=== PATIENT | male | born 1990 | race Caucasian/White ===

== ENCOUNTER 2020-08-07 09:27 | Observation (INO) | payer MEDICAID, SELFPAY ==
[2020-08-07] VITALS (19 sets, daily range): BP systolic 135–158; BP diastolic 70–108; PULSE 70–106; RESP 13–22; TEMP 36.7–36.8; O2SAT 95–98
--- NOTE | 2020-08-07 | DI.US_ITS ---
EXAM: US CAROTID CLINICAL HISTORY: expressive aphasia, ?CVA TECHNIQUE: Ultrasound performed using standard protocol. COMPARISON: No exams were available for comparison FINDINGS: Bilateral duplex carotid ultrasound was performed. There is bilateral antegrade vertebral flow. The re is no visible atheromatous plaque in the carotid circulation. Flow velocities in the common inter nal and external carotid arteries are within normal limits. IMPRESSION: No evidence of a hemodynamically significant carotid stenosis. DATA REPOSITORY:
--- NOTE | 2020-08-07 09:30 | DI.CT_ITS ---
EXAM: CT HEAD WO CLINICAL HISTORY: AMS, non verbal. TECHNIQUE: Imaging Protocol: Axial computed tomography images with coronal and sagittal reformatted images were created and reviewed COMPARISON: No exams were available for comparison FINDINGS: The examination is limited due to patient motion artifact. Ventricles and Extra axial spaces: Normal in size and morphology for the patient's age. Hemorrhage: None. Cerebral parenchyma: Normal. Midline shift: None. Brainstem/Cerebellum: Normal. Calvarium: Normal. Visualized Paranasal sinuses/Mastoids: Clear. Soft Tissues: Unremarkable. IMPRESSION: No acute intracranial process. Results of this exam have been verbally communicated with provider. RADIATION DOSE DELIVERED: 756.54mGy.cm Total DLP DATA REPOSITORY: All CT scans at this facility are submitted to the National Radiology Data Registry (NRDR) Dose Index Registry (DIR) with the [employer] (A[employer]). RADIATION OPTIMIZATION: All CT scans at this facility use at least one of these dose optimization te chniques: automated exposure control; mA and/or kV adjustment per patient size (includes targeted exa ms where dose is matched to clinical indication); or iterative reconstruction.
--- NOTE | 2020-08-07 09:45 | ED.GENADUL_ITS ---
Discharge Plan Disposition Patient Disposition: [facility] INPATIENT Condition: Stable Discharge Details Clinical Impression: Acute alteration in mental status Primary Care Provider: Unknown,Unknown ED Provider: Elise Majano Home Meds and New Rx's Prescriptions: No Action No Known Home Meds RF: 0 Medical Decision Making 30-year-old male presents to the ED via EMS and police with altered mental status. Call came in as a possible seizure, when EMS arrived on scene patient was not there. They found him at a family member's house he was standing or smoking a cigarette nonverbal. He does not yes or no to some questions, he she did endorse to EMS that he may have smoked some crack cocaine and/or marijuana. No significant signs of trauma, he does have some blood noted in his left nare, dry mucous membranes, denies any chest or abdominal pain. No tenderness with palpation. Lungs are clear bilaterally to auscultation. He does appear anxious, under the influence, pupils are 5 mm sluggish bilaterally, he also kind of freezes mid motion as in a catatonic state. 1004: Call made to Daniela (Pt's Girlfriend) No answer, left voicemail. At this time work-up ordered including CBC, CMP, Tylenol, salicylate level, ethanol alcohol level, urinalysis and urine drug screen, CT head. 1 L normal saline bolus and oral fluids given. Differential diagnosis includes but not limited to head trauma, CVA, drug abuse, behavioral or anxiety reaction. 1013: Spoke with Patient's girlfriend Daniela, she states last time she talked to him was last night, he was supposed to get her kids this am. At 0630 this am she noticed the car missing and she assumed he went to get kids. She states that he smokes Marijuana daily. She also states that over the last year he will pass out and wake up and state that he's fine. She reports last episode she witnessed was approximately 6 months ago after intercourse she states that he began overheating feeling woozy, he then laid down on the ground and passed out for approximately 30 seconds. She states that he then just woke up right away and said that he was fine. 1042: Patient sitting up on side of bed with senior staff specialized employment, he is refusing of his pants taken off to the urine sample. He is still nonverbal. CT head is within normal limits. 1057: Per senior staff specialized employment patient did speak through the closed door when asked if he needed help, he stated through the closed door no I am all set and when asked also through the closed door if he needed help with the urinal he said no, At this time initial work-up is largely unremarkable negative for ethyl alcohol, Tylenol, salicylate, TSH is within normal limits, sodium potassium is also within normal limit white blood cell count is 11.38. At this time we do not have a urinalysis as of yet or urine drug screen. 1131: Neurologist Dr. Landry Paged, 1151: Patient is now able to speak in 1 or 2 words, he does stare off into space impression anxiety or mental health. He did tell the senior staff specialized employment that he is having a hard time forming the words. [id number] normal bilateral upper extremities. He is moving all 4 extremities, strength is 5+ all 4 extremities. He is unable to smile, can puff out his cheeks, can raise his eyebrows. Continues to be aphasic. Urine was obtained and is pending at this time. 1155: Urinalysis shows no evidence of UTI, no nitrites no leukocytes, hospitalist paged for possible admission.She agrees to come and evaluate patient. 1208: Spoke with Samaira Gonzalez discussed patient case and details she does recommend admission and possible MRI of the brain and EEG if patient does not improve his mental status. At this time she does also agree that this appears to be more drug related and/or psych versus true aphasia. 1232: Urine drug screen positive for cocaine and THC. 1243: Dr. Scott here for patient evaluation, she agrees to accept patient for admission to R/O TIA/CVA and altered mental status. HPI General Mode of arrival: EMS . Date/Time Provider Initiated Documentation: 08/07/20 09:33 . Limitations to Documentation: altered mental status . Information obtained by: patient, police and EMS . HPI Narrative: 30-year-old male presents to the ED via EMS and police with altered mental status. Call came in as a possible seizure, when EMS arrived on scene patient was not there. They found him at a family member's house he was standing or smoking a cigarette nonverbal. He does not yes or no to some questions, he she did endorse to EMS that he may have smoked some crack cocaine and/or marijuana. No significant signs of trauma, he does have some blood noted in his left nare, dry mucous membranes, denies any chest or abdominal pain. No tenderness with palpation. Lungs are clear bilaterally to auscultation. He does appear anxious, under the influence, pupils are 5 mm sluggish bilaterally, he also kind of freezes mid motion as in a catatonic state. Related Data Home Medications Medication Instructions Recorded Confirmed Unknown [No Known Home Meds] 08/07/20 08/07/20 Allergies Allergy/AdvReac Type Severity Reaction Status Date / Time Penicillins AdvReac Unknown unknown Unverified 08/07/20 11:37 General Stated Complaint: AMS/LOC RON: 2 Review of Systems Narrative: Constitutional: Disheveled, nonverbal, appears catatonic, overweight body habitus, Unobtainable due to mental status [facility] Medical History (Updated 08/07/20 @ 15:04 by Danielle Scott MD) Cocaine abuse Depression Headache Tobacco abuse Surgical History (Updated 08/07/20 @ 14:41 by Danielle Scott MD) S/P tonsillectomy and adenoidectomy Family History (Updated 08/07/20 @ 14:42 by Danielle Scott MD) Mother Diabetes Father Cancer former smoker Social History (Updated 08/07/20 @ 14:42 by Danielle Scott MD) Smoking/Tobacco Use Status: Current every day Smoking risk assessment performed?: Yes Drug use: Never Additional Social history: pt currently not answering questions, per EMS pt has a history of drug use- crack/marijuana. Pt shakes head no when asked if he used drugs today but did tell EMS he used marijuana Exam Narrative Exam Narrative: Constitutional: Nonverbal, altered mental status. Appears stated age. Overweight body habitus. Appears anxious or catatonic. Head: Normocephalic, no lacerations, palpable skull fractures, abrasions. Eyes: Pupils approximately 5 to 6 mm bilaterally sluggish. Eyelids symmetrical without lesions, discharge, or swelling. ENT: Bilateral TM's WNL, External ear normal to inspection, no mastoid TTP, swelling, or erythema, nasal turbinates boggy, some blood noted left nare and some dried blood noted around the edges of the lips, no active bleeding. Normal dentition, Posterior pharynx erythemic, no exudate, dry mucous membranes Chest: Mild tachycardia at 106, normal S1, S2, distal pulses intact. Resp: Lungs clear to auscultation bilaterally, no wheezes, rales, or rhonchi. Musculoskeletal: Unable to assess gait, previous mid motion, allocation analyst 2+ bilateral upper extremities, Skin: No suspicious rashes or lesions. Capillary refill less than 2 sec. Neurologic: Cranial nerves II-XII intact. Follows commands, remains nonverbal, intact dorsal pedal flexion and extension. Moves all 4 extremities without difficulty. Hematologic/Lymphatic: No ecchymosis, no lymphadenopathy. Course Vital Signs Vital signs: Vital Signs Temperature 36.7 C 08/07/20 09:36 Pulse 106 H 08/07/20 09:36 Respiratory Rate 22 08/07/20 09:36 Blood Pressure 153/107 H 08/07/20 09:36 Pulse Oximetry 98 08/07/20 09:36 Temperature 36.7 C 08/07/20 09:36 Temperature Source Skin 08/07/20 09:36 Pulse 106 H 08/07/20 09:36 Respiratory Rate 22 08/07/20 09:36 Respiratory Effort 08/07/20 09:41 Blood Pressure 153/107 H 08/07/20 09:36 Blood Pressure Position Sitting 08/07/20 09:36 Pulse Oximetry 98 08/07/20 09:36 Oxygen Delivery Method Room Air 08/07/20 09:36 Oxygen Flow Rate 0 08/07/20 09:36
[2020-08-07] MEDS: Normal Saline 1,000 ML 1000 ML IV (10:03)
[2020-08-07 10:15] LABS: Abs Immature Grans 0.04 10^3/uL (0.0-0.06); Absolute Basophil Count 0.02 10^3/uL (0.0-0.2); Absolute Eosinophil Count 0.02 10^3/uL (0.0-0.7); Absolute Lymphocyte Count 1.65 10^3/uL (1.2-3.4); Absolute Monocyte Count 1.06 10^3/uL (0.1-0.8); Basophils % 0.2; Eosinophils % 0.2; HCT 51.5 % (40.0-50.0); HGB 17.3 g/dL (13.5-17.5); Immature Grans % 0.4; MCH 28.2 pg (27.0-33.0); MCHC 33.6 % (32.0-36.0); MCV 83.9 fL (80-95); Monocytes % 9.3; Neutrophils % 75.4; Nucleated RBC 0 %; RBC 6.14 10^6/uL (4.36-5.78); RDW 13.3 % (11.8-14.1); RDW-SD 40.9 fL; WBC 11.38 10^3/uL (4.4-10.8)
[2020-08-07 10:38] LABS: Absolute Neutrophil Count 8.58 10^3/uL (1.2-6.7); Acetaminophen < 2 ug/mL (10-30); Salicylate < 2.8 mg/dL (<2.8)
[2020-08-07 10:39] LABS: ALT 107 U/L (16-63); AST 27 U/L (15-37); Albumin 4.6 g/dL (3.4-5.0); Alkaline Phosphatase 81 U/L (46-116); Anion Gap 10.6 mmol/L (3-11); BUN 13 mg/dL (7-18); Bilirubin, Total 0.5 mg/dL (0.2-1.0); CO2 29.4 mmol/L (21.0-32.0); Calcium 9.4 mg/dL (8.5-10.1); Chloride 99 mmol/L (98-107); Glucose 120 mg/dL (74-106); Potassium 3.6 mmol/L (3.5-5.1); Sodium 139 mmol/L (136-145); TSH 2.13 uIU/mL (0.36-3.74); Total Protein 8.6 g/dL (6.4-8.2)
[2020-08-07 10:44] LABS: ETHANOL BLOOD < 3.0 mg/dL (<3)
[2020-08-07 10:46] LABS: Diff Comment Diff Reviewed; Platelet Count 391 10^3/uL (130-400)
[2020-08-07 10:47] LABS: Lymphocytes % 14.5; RBC Morphology Normal
[2020-08-07 11:51] LABS: Bilirubin Negative (Negative); Blood Negative (Negative); Clarity Clear (Clear); Glucose Negative (Negative); Ketones Negative (Negative); Leukocyte Esterase Negative (Negative); Nitrite Negative (Negative); Urobilinogen 0.2 EU/dL (Up TO 0.2)
[2020-08-07 12:10] LABS: *AMPHETAMINES SCREEN URINE Negative (Negative); *BARBITURATES SCREEN URINE Negative (Negative); *BENZODIAZEPINES SCREEN URINE Negative (Negative); Cannabinoids THC Positive (Negative); Cocaine Screen,Urine Positive (Negative); METHADONE URINE SCREEN Negative (Negative); OPIATES URINE SCREEN Negative (Negative)
[2020-08-07 12:12] LABS: Tricyclic Antidepressants Negative (Negative)
--- NOTE | 2020-08-07 13:04 | HPE_ITS ---
Date of service: 08/07/20 Time of Service: 12:45 Assessment and Plan Assessment and plan (1) Expressive aphasia: Status: Acute Assessment and plan: CVA ruled out with negative MRI. Await neuro c/s. ?Sz vs atypical migraine. ALso, r/o Lyme disease. Await covid-19 study (2) Hypertension: Status: Acute Assessment and plan: Will not treat at this time as could be related to recent cocaine use and it is not appearing malignant. Will monitor. (3) Cocaine abuse: Status: Acute Assessment and plan: Advised to quit. Monitor for sx of wd. (4) Tobacco abuse: Status: Acute Assessment and plan: Advised to quit. Provide nicotine replacement (5) DVT prophylaxis: Status: Acute Assessment and plan: Not required in an ambulatory 30 year old male (6) Discharge planning issues: Status: Acute Assessment and plan: Full code obs History of Present Illness History of Present Illness Chief Complaint: altered mental status, speech difficulty Narrative: Mr Bond is a 30 year old male with PMHx of depression (?formally diagnosed), headaches and possible near or complete syncopal episodes in the past who was brought to [facility] by ambulance today for altered mental status. Per ED provider, the patient was last seen normal last night. He had gone to forklift picker his kids from their grandmother's house this morning where he was noted to have a blank stare and not be talking but was able to drive away in his own car. 911 was called at that time. The patient was found standing on a sidewalk smoking but remained nonverbal. In the ED, he was also initially nonverbal, but following commands, but now appears to have periods of intermittent fluent speech followed by periods of expressive aphasia. The patient denies a headache. His UDS was positive for THC and cocaine. The patient admits to using cocaine 3 days ago (snorts it; denies ever using IVD). He denies numbness/tingling/weakness anywhere and is able to move all 4 extremities. He de nies contacts with known covid-19 patients or having COVID-19 symptoms himself. Family described several episodes of altered levels of consciousness in the last 2 years to the ED provider, though none fitting this description. Review of Systems Narrative: Additionally, denies h/o recent tick bites, though endorses a tick bite a long time ago. He never got checked for Lyme disease at that time and never got treatment. All systems reviewed & are unremarkable except as noted in HPI and below PFSH Medical History (Updated 08/07/20 @ 15:04 by Danielle Scott MD) Cocaine abuse Depression Headache Tobacco abuse Surgical History (Updated 08/07/20 @ 14:41 by Danielle Scott MD) S/P tonsillectomy and adenoidectomy Family History (Updated 08/07/20 @ 14:42 by Danielle Scott MD) Mother Diabetes Father Cancer former smoker Social History (Updated 08/07/20 @ 14:42 by Danielle Scott MD) Smoking/Tobacco Use Status: Current every day Smoking risk assessment performed?: Yes Drug use: Never Additional Social history: pt currently not answering questions, per EMS pt has a history of drug use- crack/marijuana. Pt shakes head no when asked if he used drugs today but did tell EMS he used marijuana Meds Home Medications and Allergies Allergies Allergy/AdvReac Type Severity Reaction Status Date / Time Penicillins AdvReac Unknown unknown Unverified 08/07/20 11:37 Home Medications Medication Instructions Recorded Confirmed Type Unknown [No Known Home Meds] 08/07/20 08/07/20 History Exam Narrative Exam Narrative: General: Pleasant obese male, awake, pupils dilated, following commands, speech alternates from fluent to word finding difficulty, but answers make sense, A&Ox3 Neurological: A&Ox3, CN II-XII intact except patient's inability to smile (he can't explain why), speech fluency changes several times throughout the exam with difficulty finding words, strength 5/5 throughout, sensation intact, DTRs 2+, plantar response flexion on left, equivocal on right. Psychiatric: affect somewhat flat, but difficult to fully assess given speech issues, appears worried Skin: Visible skin intact HEENT: Atraumatic, normocephalic, EOMI, MMM, poor dental hygiene, clear oropharynx, no submandibular or cervical lymphadenopathy, no goiter or JVD Cardiovascular: RRR, no m/r/g Lungs: CTAB Gastrointestinal: soft, nontender, nondistended Genitourinary: deferred Extremities: no edema BLE's, 2+ pedal pulses B, strength as above Results Imaging Additional studies: CT head: No acute intracranial process. MRA brain: Normal MRA examination of the [place]. MRI brain: Unremarkable MRI of the brain. Labs Result diagrams: 08/07/20 09:55 08/07/20 09:55 Labs: Laboratory Results - last 24 hr 08/07/20 08/07/20 08/07/20 09:55 09:55 09:55 WBC 11.38 H RBC 6.14 H Hgb 17.3 Hct 51.5 H MCV 83.9 MCH 28.2 MCHC 33.6 RDW 13.3 Plt Count 391 MPV 9.0 Immature Gran % 0.4 Neutrophils % 75.4 Lymphocytes % 14.5 Monocytes % 9.3 Eosinophils % 0.2 Basophils % 0.2 Nucleated RBC % 0 Absolute Neutrophils 8.58 H Absolute Lymphocytes 1.65 Absolute Monocytes 1.06 H Absolute Eosinophils 0.02 Absolute Basophils 0.02 RBC Morphology Normal Sodium 139 Potassium 3.6 Chloride 99 Carbon Dioxide 29.4 Anion Gap 10.6 BUN 13 Creatinine 1.0 Estimated GFR/1.73 m2 >= 60.00 Glucose 120 H Calcium 9.4 Total Bilirubin 0.5 AST 27 ALT 107 H Alkaline Phosphatase 81 Total Protein 8.6 H Albumin 4.6 TSH 2.13 Urine Color Urine Clarity Urine pH Ur Specific [place] Urine Protein Urine Ketones Urine Blood Urine Nitrite Urine Bilirubin Urine Urobilinogen Ur Leukocyte Esterase Urine Glucose Salicylates < 2.8 Urine Opiates Screen Urine Methadone Screen Acetaminophen < 2 Ur Barbiturates Screen Ur Tricyclics Screen Ur Amphetamines Screen U Benzodiazepines Scrn Urine Cocaine Screen Ur THC Screen Ethyl Alcohol < 3.0 08/07/20 08/07/20 11:39 11:39 WBC RBC Hgb Hct MCV MCH MCHC RDW Plt Count MPV Immature Gran % Neutrophils % Lymphocytes % Monocytes % Eosinophils % Basophils % Nucleated RBC % Absolute Neutrophils Absolute Lymphocytes Absolute Monocytes Absolute Eosinophils Absolute Basophils RBC Morphology Sodium Potassium Chloride Carbon Dioxide Anion Gap BUN Creatinine Estimated GFR/1.73 m2 Glucose Calcium Total Bilirubin AST ALT Alkaline Phosphatase Total Protein Albumin TSH Urine Color Yellow Urine Clarity Clear Urine pH 6.0 Ur Specific [place] 1.020 Urine Protein Negative Urine Ketones Negative Urine Blood Negative Urine Nitrite Negative Urine Bilirubin Negative Urine Urobilinogen 0.2 Ur Leukocyte Esterase Negative Urine Glucose Negative Salicylates Urine Opiates Screen Negative Urine Methadone Screen Negative Acetaminophen Ur Barbiturates Screen Negative Ur Tricyclics Screen Negative Ur Amphetamines Screen Negative U Benzodiazepines Scrn Negative Urine Cocaine Screen Positive A Ur THC Screen Positive A Ethyl Alcohol Last Vital Signs Temp 36.8 C 08/07/20 12:16 Pulse 85 08/07/20 12:16 Resp 20 08/07/20 12:16 BP 135/85 08/07/20 12:16 Pulse Ox 96 08/07/20 12:16 COVID-19 Screening Have you, or household traveled for leisure in last 14 days?: No Had IN PERSON contact w/suspected or confirmed C-19 person: No Have you had the following symptoms in the past few days?: No
--- NOTE | 2020-08-07 13:45 | DI.MRI_ITS ---
CLINICAL HISTORY: expressive aphasia. TECHNIQUE: Multiplanar multisequence MRA of the brain was performed. COMPARISON: None. FINDINGS: Carotid Arteries: No aneurysm, occlusion or significant stenosis. Anterior Cerebral Arteries: Right: No aneurysm, occlusion or significant stenosis. Left: No aneurysm, occlusion or significant stenosis. Middle Cerebral Arteries: Right: No aneurysm, occlusion or significant stenosis. Left: No aneurysm, occlusion or significant stenosis. Posterior Cerebral Arteries: Right: No aneurysm, occlusion or significant stenosis. Left: No aneurysm, occlusion or significant stenosis. Vertebral Arteries: Right: No aneurysm, occlusion or significant stenosis. Left: No aneurysm, occlusion or significant stenosis. Basilar Artery: No aneurysm, occlusion or significant stenosis. IMPRESSION: Normal MRA examination of the [place]. DATA REPOSITORY:
--- NOTE | 2020-08-07 14:02 | DI.MRI_ITS ---
EXAM: MR BRAIN WO CLINICAL HISTORY: expressive aphasia TECHNIQUE: Multiplanar multisequence MRI of the brain was performed. COMPARISON: CT CT HEAD WO from 08/07/2020 FINDINGS: VENTRICLES AND EXTRA AXIAL SPACES: Normal in size and morphology for the patient's age. MIDLINE SHIFT: None. CEREBRAL PARENCHYMA: No focus of restricted diffusion to suggest acute infarct. No space-occupying le avel identified. HEMORRHAGE: None. BRAINSTEM/CEREBELLUM: Normal. CALVARIUM: Normal. VISUALIZED PARANASAL SINUSES/MASTOIDS:There is mild mucosal thickening in the maxillary sinuses bilat erally. [place]: Normal flow void. [place]: Unremarkable. OTHER FINDINGS: None. IMPRESSION: Unremarkable MRI of the brain. DATA REPOSITORY:
[2020-08-07 14:35] LABS: Source Nasal/Nares
--- NOTE | 2020-08-07 16:54 | NCONE_ITS ---
Date of service: 08/07/20 Time of Service: 16:55 Assessment and Plan Assessment and plan (1) Alteration in speech: Status: Acute Assessment and plan: Mr. Bond is a 30 year-old, right-handed man who was brought by PD/EMS for altered behavior and altered speech. His symptoms have resolved now, but lasted at least 8 hours if not longer. He had no associated headache. And he had no emotion/distress at any time. Neuroimaging was normal. His symptoms are not consistent with TIA or stroke. His symptoms are not consistent with TGA as he does not have amnesia. His symptoms are atypical of migraine though certainly could be an explanation - induced by cocaine use. However, the lack of emotional response is very odd to me. I wonder if he was under the influence today and used cocaine more recently or was high from his marijuana use. The only other etiology includes seizure. While his symptoms seem much too long for a post-ictal state, simple partial status epilepticus could be an explanation - though he really doesn't have much for epileptic risk factors. I agree with EEG as further work-up. I encouraged him to continue with admission and further work-up - he wanted to leave. I recommended neurology follow-up after discharge. He declined at this time. Please call with any further questions or concerns. History of Present Illness History of Present Illness Chief Complaint: aphasia Narrative: Handedness: right. HPI: Mr. Bond is a 30 year-old man with JOSSELYN s/p T&A and weight loss (though no confirmative story that JOSSELYN has resolved) and childhood asthma. Mr. Bond was brought to the [facility] ER by EMS and PD for altered behavior and speech changes. Mr. Bond was reportedly last seen normal last night. Mr. Bond does not believe he slept last night, but he also cannot tell me what he did during the night. He notes that at baseline he does not sleep on any regular schedule and instead sleeps 2-3 hours at various different times. At around 6am, he put on his socks and shoes and left his house in [facility] to drive to [place] to pear picker his children from his in-laws house. He states he recalls the entire [address] Once there, his in-laws apparently recognized that he was not acting right. Staring? It was at this time that he recalled that he was unable to get his words out. He could think correctly but again, no words were coming out. He recalls that they tried to keep him there. He recalls 2 little ladies holding on to his arms. He expressed no distress over this. However, he thought it was odd, so he decided to leave. He got back in his car and drove away. It was on the [facility] [facility] [address] that he was found. He wasn't clear on how this occurred. Per ER notes, he was found on the side of the road smoking. He again noted difficulty getting words out. Again, I am not clear on how the interaction went with PD and EMS, but he again was not distressed at all and was brought to the ER. In the ER, BP was slightly elevated 140s-150s. A UDS was significant for THC and cocaine. He smokes marijuana daily. He states he used cocaine ~3 days ago. He was morning the loss of his dog (had to be put to sleep at 10 years of age). He has been sleeping even less since due to mourning. He has had further work-up as below since arrival. His speech returned to normal at ~3pm, so at least 8 hours of known symptoms. He has no headache and had no headache at any time. He has no numbness, tingling, or weakness. He notes that he had a similar episode about 6 months ago after using cocaine. He notes that he had difficulty talking and getting his words out just as now. He slept it off and returned to normal. Prior to that episode, he notes that he had not used cocaine in over 1 year if not longer. He has no history of seizures. He notes rare episodes of brief LOC associated with getting overheated. He states he returns to normal quickly after these without lingering effects. His father had seizures associated with metastatic lung cancer to the brain. No other family history of seizures. He was born via but is not sure if this was urgent or not; or if there were any complications. He was developmental normal. He had an IEP for reading and writing in school. Notes extreme difficulty with both to this day. He graduated high school. He has no history of head injuries. He has rare headaches, usually in the setting of dehydration. Will drink water and take APAP with excellent benefit. 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 His children age 1 and 4 attend daycare in [place] during the day. Work-up: -CTH (08/07/20): no acute findings. I reviewed these images personally and this is my personal interpretation. -MRI brain w/p (08/07/20): no acute findings. Normal brain. I reviewed these images personally and this is my personal interpretation. -MRA head (08/07/20): unremarkable. I reviewed these images personally and this is my personal interpretation. Consults Requesting physician: Danielle Scott Review of Systems All systems reviewed & are unremarkable except as noted in HPI and below PFSH Medical History Cocaine abuse Depression Headache Tobacco abuse Surgical History S/P tonsillectomy and adenoidectomy Family History Mother Diabetes Father Cancer former smoker Social History Smoking/Tobacco Use Status: Current every day Smoking risk assessment performed?: Yes Drug use: Never Additional Social history: pt currently not answering questions, per EMS pt has a history of drug use- crack/marijuana. Pt shakes head no when asked if he used drugs today but did tell EMS he used marijuana Visit Medication and Allergies Active Medications Generic Name Dose Route Start Last Admin Trade Name Freq PRN Reason Stop Dose Admin Acetaminophen 650 mg 08/07/20 12:55 Acetaminophen 325 Mg Tab PO Q4H PRN PRN Al Hydrox/Mg Hydrox/Simethicone 30 ml 08/07/20 12:55 Mylanta Suspension 30 Ml Cup PO Q2H PRN PRN Dimethicone/Zinc Oxide 0 gm 08/07/20 12:55 Ruben Protect Cream 142 Gm Tube TP PRN PRN Docusate Sodium 100 mg 08/07/20 12:55 Docusate Sodium 100 Mg Cap PO TID PRN PRN Sodium Chloride 500 mls @ 0 mls/hr 08/07/20 09:17 Saline 500ml Bag IV PRN PRN As Directed Sodium Chloride 1,000 mls @ 125 mls/hr 08/07/20 13:00 Saline 1000ml Bag IV INFUSION MARKOS IV Miscellaneous Supplies 1 each 08/07/20 09:30 Iv Access IV DIRECTED MARKOS Magnesium Hydroxide 30 ml 08/07/20 12:55 Milk Of Magnesia 30 Ml Cup PO DAILY PRN PRN Nicotine 0 cartridge 08/07/20 12:55 Nicotine 10 Mg/Cartridge 30 Cart/Pkg IH Q3H PRN PRN Sodium Chloride 0 ml 08/07/20 09:17 Normal Saline Flush 10 Ml Syr IVP PRN PRN Allergies Penicillins Adverse Reaction (Unknown, Unverified 08/07/20 11:37) unknown Exam Narrative Exam Narrative: Physical Exam: Gen: Patient of apparent stated age, NAD Head and face: no facial or cranial abnormalities Neck: Supple, no meningismus, no occipital tenderness CV: + S1, S2, RRR, no murmur Resp: CTA B/L Abd: soft, nontender, nondistended Ext: No edema. No clubbing or cyanosis. No bony deformity. Neuro Exam: Language: fluency, naming, repetition, and comprehension intact; Mental Status: AAOx3, current events intact, fund of knowledge intact; Speech: no dysarthria Cranial nerves: Funduscopy: not performed CN II: visual pack intact CN III, IV, : extraocular movements intact, no nystagmus, pupils symmetric and reactive to light CN V: face sensation intact to LT and PP CN VII: no facial asymmetry noted CN VIII: hearing intact bilaterally CN IX, X: palate rises symmetrically CN XI: trapezius/SCM 5/5 bilaterally CN XII: protrudes tongue symmetrically Sensory: intact to LT, PP, vibration, and joint position in all extremities Motor: bulk and tone intact. Fine motor movements intact bilaterally. No pronator drift. Strength 5/5 throughout including the deltoids, biceps, triceps, wrist extensors, hip flexors, knee flexors, knee extensors, ankle flexors, and ankle extensors. Reflexes: 2+ at the biceps, triceps, brachioradialis, patella, and achilles tendons bilaterally; toes down going bilaterally; Coordination: FTN and HTS intact bilaterally Gait: not tested Results Last Vital Signs Temp 36.8 C 08/07/20 14:42 Pulse 70 08/07/20 14:42 Resp 18 08/07/20 15:10 BP 136/70 08/07/20 14:42 Pulse Ox 97 08/07/20 14:42 Labs Result diagrams: 08/07/20 09:55 08/07/20 09:55 Labs: Laboratory Results - last 24 hr 08/07/20 08/07/20 08/07/20 09:55 09:55 09:55 WBC 11.38 H RBC 6.14 H Hgb 17.3 Hct 51.5 H MCV 83.9 MCH 28.2 MCHC 33.6 RDW 13.3 Plt Count 391 MPV 9.0 Immature Gran % 0.4 Neutrophils % 75.4 Lymphocytes % 14.5 Monocytes % 9.3 Eosinophils % 0.2 Basophils % 0.2 Nucleated RBC % 0 Absolute Neutrophils 8.58 H Absolute Lymphocytes 1.65 Absolute Monocytes 1.06 H Absolute Eosinophils 0.02 Absolute Basophils 0.02 RBC Morphology Normal Sodium 139 Potassium 3.6 Chloride 99 Carbon Dioxide 29.4 Anion Gap 10.6 BUN 13 Creatinine 1.0 Estimated GFR/1.73 m2 >= 60.00 Glucose 120 H Calcium 9.4 Total Bilirubin 0.5 AST 27 ALT 107 H Alkaline Phosphatase 81 Total Protein 8.6 H Albumin 4.6 TSH 2.13 Urine Color Urine Clarity Urine pH Ur Specific [place] Urine Protein Urine Ketones Urine Blood Urine Nitrite Urine Bilirubin Urine Urobilinogen Ur Leukocyte Esterase Urine Glucose Salicylates < 2.8 Urine Opiates Screen Urine Methadone Screen Acetaminophen < 2 Ur Barbiturates Screen Ur Tricyclics Screen Ur Amphetamines Screen U Benzodiazepines Scrn Urine Cocaine Screen Ur THC Screen Ethyl Alcohol < 3.0 COVID-19 Source 08/07/20 08/07/20 08/07/20 11:39 11:39 14:13 WBC RBC Hgb Hct MCV MCH MCHC RDW Plt Count MPV Immature Gran % Neutrophils % Lymphocytes % Monocytes % Eosinophils % Basophils % Nucleated RBC % Absolute Neutrophils Absolute Lymphocytes Absolute Monocytes Absolute Eosinophils Absolute Basophils RBC Morphology Sodium Potassium Chloride Carbon Dioxide Anion Gap BUN Creatinine Estimated GFR/1.73 m2 Glucose Calcium Total Bilirubin AST ALT Alkaline Phosphatase Total Protein Albumin TSH Urine Color Yellow Urine Clarity Clear Urine pH 6.0 Ur Specific [place] 1.020 Urine Protein Negative Urine Ketones Negative Urine Blood Negative Urine Nitrite Negative Urine Bilirubin Negative Urine Urobilinogen 0.2 Ur Leukocyte Esterase Negative Urine Glucose Negative Salicylates Urine Opiates Screen Negative Urine Methadone Screen Negative Acetaminophen Ur Barbiturates Screen Negative Ur Tricyclics Screen Negative Ur Amphetamines Screen Negative U Benzodiazepines Scrn Negative Urine Cocaine Screen Positive A Ur THC Screen Positive A Ethyl Alcohol COVID-19 Source Nasal/nares
[2020-08-07 17:16] LABS: COVID-19 PCR Negative (Negative)
--- NOTE | 2020-08-07 19:16 | NUR.NOTE ---
Addendum entered by Caden Soto 08/07/20 19:36: Patient admitted as per assessment below. At approximately 1730, pt rang gusman and stated he needed to leave. He had talked to his and he had to be home to take care of his kids in the morning. Spoke with JAY Chavez who paged Dr. Scott. Dr. Scott advised this would be an AMA. Patient apprised of this information and stated understanding. He was given AMA paperwork which he read and signed. IV removed from right hand,cannula intact and pt left at 1738 AMA. Original Note: Nursing Note: Patient to floor at 1533, unable to complete entire admission assessment, assessment as follows: pt alert and oriented x 4, no complaints of pain. Came to ED because of an episode earlier in the day when he was unable to speak, issue has since resolved. LS clear to auscultation, denies any respiratory issues. GI without issues, bowel sounds positive x 4, denies n/v/d. Skin intact, no skin issues. No edema noted, pedal pulses positive bilaterally.
--- NOTE | 2020-08-08 17:02 | DSE_ITS ---
Date of service: 08/07/20 DS: Diagnosis Discharge Diagnosis (1) Alteration in speech: Status: Acute (2) Tobacco abuse: Status: Acute (3) Cocaine abuse: Status: Acute (4) Hypertension: Status: Acute (5) Obesity, Class I, BMI 30-34.9: Status: Chronic Discharge Plan Disposition Patient Disposition: AGAINST MEDICAL ADVICE Condition: Stable Discharge Details Reason For Visit: EXPRESSIVE APHASIA Admit Date/Time: 08/07/20 12:56 Admit Provider: Danielle Scott Attending Provider: Danielle Scott Primary Care Provider: Unknown,Unknown Hospital Course Hospital Course: Mr Bond was observed on hospitalist service on 08/07/20 after presenting with alteration in speech in setting of a UDS positive for cocaine. His MRI ruled out a CVA. Evidently this has happened before in setting of cocaine use. Dr Hernandez evaluated the patient and felt that the patient may have been having complex partial status epilepticus, but unfortunately the patient left the hospital against medical advice prior to EEG being performed. He was advised against leaving AMA and verbalized understanding. Home Meds and New Rx's Prescriptions: No Action No Known Home Meds RF: 0 Discharge Instructions Diet:: As Tolerated Discharge Orders Discharge Orders: Discharge Order (Routine); Ordered 08/08/20 Ordered By: Danielle Scott Discharge Data Discharge Date/Time-TO BE ENTERED AT DEPARTURE: 08/07/20 17:38 DS: Summary Time Spent with Patient providing and/or coordinating discharge services: Less than 30 minutes Status at Discharge Functional status at discharge: independent ambulation Overall status at discharge: patient is progressing back to baseline Mental Status: mental status grossly normal Speech and Movement: slowed movement Mood: congruent mood Affect: anxious affect Exam Narrative Exam Narrative: General: Pleasant obese male, awake, pupils dilated, following commands, speech alternates from fluent to word finding difficulty, but answers make sense, A&Ox3 Neurological: A&Ox3, CN II-XII intact except patient's inability to smile (he can't explain why), speech fluency changes several times throughout the exam with difficulty finding words, strength 5/5 throughout, sensation intact, DTRs 2+, plantar response flexion on left, equivocal on right. Psychiatric: affect somewhat flat, but difficult to fully assess given speech issues, appears worried Skin: Visible skin intact HEENT: Atraumatic, normocephalic, EOMI, MMM, poor dental hygiene, clear oropharynx, no submandibular or cervical lymphadenopathy, no goiter or JVD Cardiovascular: RRR, no m/r/g Lungs: CTAB Gastrointestinal: soft, nontender, nondistended Genitourinary: deferred Extremities: no edema BLE's, 2+ pedal pulses B, strength as above Psych Mental Status: mental status grossly normal Speech and Movement: slowed movement Mood: congruent mood Affect: anxious affect DS: Data Vitals/I&O Vitals and I&O: Vital Signs Temperature 36.7 C 08/07/20 15:45 Temperature Source Skin 08/07/20 14:42 Pulse 85 08/07/20 15:45 Pulse Rhythm Regular 08/07/20 15:45 Pulse 88 08/07/20 15:10 Respiratory Rate 18 08/07/20 15:45 Respiratory Effort Non-Labored 08/07/20 15:45 Respiratory Depth Normal 08/07/20 15:45 Respiratory Pattern Normal 08/07/20 15:45 Blood Pressure 143/96 H 08/07/20 15:45 Blood Pressure Mean 84 08/07/20 14:42 Blood Pressure Position Sitting 08/07/20 09:36 Pulse Oximetry 97 08/07/20 15:45 Oxygen Delivery Method Room Air 08/07/20 15:45 Oxygen Flow Rate 0 08/07/20 15:45 Pain Level 0 08/07/20 15:45 Intake & Output 08/07/20 08/08/20 08/08/20 23:59 11:59 23:59 Intake Total 1019 Balance Weight 99.79 kg Intake: IV 1019 Data Completed and Pending Completed studies during hospitalization [Text1]: US carotid: No evidence of a hemodynamically significant carotid stenosis. CT head w/o contrast: No acute intracranial process. MRI brain: Unremarkable MRI of the brain. MRA brain: Normal MRA examination of the [place]. Labs on day of discharge: Labs from last 24 hours 08/07/20 08/07/20 14:13 09:55 SARS-CoV-2 (PCR) Negative Path Cons Comment [facility] Medical History Cocaine abuse Depression Headache Tobacco abuse Surgical History S/P tonsillectomy and adenoidectomy Family History Mother Diabetes Father Cancer former smoker Social History Smoking/Tobacco Use Status: Current every day Smoking risk assessment performed?: Yes Drug use: Never Additional Social history: pt currently not answering questions, per EMS pt has a history of drug use- crack/marijuana. Pt shakes head no when asked if he used drugs today but did tell EMS he used marijuana
== END 2020-08-07 17:38 | disposition left against medical advice (07) ==
LOC: ER 14:43 → MS 15:36
PROVIDERS: Admitting Provider Internal Medicine; Emergency Provider Registered Nurse Emergency; Visit Provider Internal Medicine
DX: R47.01 Aphasia (principal); F14.10 Cocaine abuse, uncomplicated; F17.210 Nicotine dependence, cigarettes, uncomplicated; R47.89 Other speech disturbances; Z20.822 Contact with and (suspected) exposure to COVID-19; G47.33 Obstructive sleep apnea (adult) (pediatric); F32.9 Major depressive disorder, single episode, unspecified; F12.90 Cannabis use, unspecified, uncomplicated
CPT/HCPCS: 36415; 36416; 70544; 80053; 80307; 82962; 87635; 96360; 96361; 99220; 99223; 99285; NC; 70450; 70551; 80320; 80329; 81003; 84443; 85025; 93880; 99284; G0378

== ENCOUNTER 2021-06-08 05:52 | Emergency (ER) | payer MEDICAID, SELFPAY ==
[2021-06-08 05:57] VITALS: BP 136/85; PULSE 86; RESP 18; TEMP 36.7; O2SAT 99
[2021-06-08] MEDS: Normal Saline 500 ML 999 ML IV (06:17)
--- NOTE | 2021-06-08 06:17 | ED.GENADUL_ITS ---
Discharge Plan Disposition Patient Disposition: HOME Condition: Stable Discharge Details Clinical Impression: Diverticulitis Primary Care Provider: Unknown,Unknown ED Provider: Mark Pendleton Home Meds and New Rx's Prescriptions: New levofloxacin 750 mg tablet 750 mg PO DAILY Qty: 9 RF: 0 metronidazole 500 mg tablet 500 mg PO TID Qty: 29 RF: 0 Discharge Instructions Instructions: Diverticulitis (ED) Additional Instructions: Take full course of antibiotics as prescribed. Please drink plenty of fluids to stay hydrated. Please contact your primary care physician to arrange follow-up. Return to the ER immediately for any worsening or new concerning symptoms. Discharge Data Discharge Date/Time-TO BE ENTERED AT DEPARTURE: 06/08/21 08:22 Medical Decision Making 630 -- 30-year-old male here with left lower quadrant abdominal pain that started last night and has persisted, tender left lower quadrant, no guarding or rebound tenderness. No urinary symptoms. Consider acute surgical pathology including diverticulitis. Patient has never had similar in the past. Plan to obtain CT of the abdomen pelvis. 757 -- CT abd/pelv interpreted by radiology: IMPRESSION: 1. Acute sigmoid diverticulitis, mild. No evidence of peritoneal free air or extraluminal fluid collection. 2. Non-specific gallbladder wall thickening with no radiopaque gallbladder calculi. 3. Small fat containing umbilical hernia. Patient has penicillin allergy. Plan treat with Flagyl and Levaquin. All results were discussed with the patient. Treatment reviewed with the patient and he provided informed consent. Usual customary discharge instructions were reviewed with the patient. HPI General Mode of arrival: ambulatory . Date/Time Provider Initiated Documentation: 06/08/21 06:04 . Limitations to Documentation: no limitations . Information obtained by: patient . HPI Narrative: 30yo male male presents with chief complaint of left lower quadrant abdominal pain. Pain started last night and has persisted. Pain is constant. Localized to left lower quadrant. Pain is currently mild and worse on palpation. Patient has never had similar pain in the past. No associated bright red blood per rectum. No melena. No associated nausea or vomiting. Related Data Home Medications Medication Instructions Recorded Confirmed levofloxacin 750 mg PO DAILY #9 tab 06/08/21 06/11/21 metronidazole 500 mg PO TID #29 tab 06/08/21 06/11/21 Previous Rx's Medication Instructions Recorded levofloxacin 750 mg PO DAILY #9 tab 06/08/21 metronidazole 500 mg PO TID #29 tab 06/08/21 Allergies Allergy/AdvReac Type Severity Reaction Status Date / Time Penicillins AdvReac Unknown unknown Unverified 06/11/21 06:32 General Stated Complaint: Abd Prob RON: 3 Review of Systems All systems reviewed & are unremarkable except as noted in HPI and below Constitutional Constitutional: Denies fever(s) Gastrointestinal Gastrointestinal: Reports abdominal pain PFSH All Active Problems (Updated 06/11/21 @ 07:09 by Carlitos Langston DO) Diverticulitis (Chronic) Abdominal pain (Acute) Diverticulitis (Chronic) Obesity, Class I, BMI 30-34.9 (Chronic) Alteration in speech (Acute) Hypertension (Acute) Discharge planning issues (Acute) DVT prophylaxis (Acute) Tobacco abuse (Acute) Expressive aphasia (Acute) Acute alteration in mental status (Acute) Medical History Cocaine abuse Depression Headache Tobacco abuse Surgical History S/P tonsillectomy and adenoidectomy Family History Mother Diabetes Father Cancer former smoker Social History Smoking/Tobacco Use Status: Current every day Smoking risk assessment performed?: Yes Alcohol Intake: former Drug use: Rarely Substance use type: marijuana Counseling given: Yes Do you feel safe at home: No Do you feel safe in your relationship?: No Additional Social history: pt currently not answering questions, per EMS pt has a history of drug use- crack/marijuana. Pt shakes head no when asked if he used drugs today but did tell EMS he used marijuana Exam Const General: cooperative and no acute distress HENMT Mouth: moist mucous membranes Eyes Conjunctivae: normal conjunctivae Sclera: normal sclerae Neck Neck: trachea midline and supple Resp Auscultation: clear to auscultation bilaterally, no rales, no rhonchi and no wheezes Cardio Rate: regular rate and not tachycardic Rhythm: regular rhythm GI Palpation: soft, not firm, no guarding, no masses, not rigid and tender in the LLQ Auscultation: normal bowel sounds Skin General skin exam: no rashes or lesions noted Neuro General: patient alert, patient awake, patient oriented x3 and tone normal Extrem General: no edema Psych Appearance: grossly normal Mental Status: mental status grossly normal Speech and Movement: speech and movement normal Course Vital Signs Vital signs: Vital Signs Temperature 36.7 C 06/08/21 05:57 Pulse 86 06/08/21 05:57 Respiratory Rate 18 06/08/21 05:57 Blood Pressure 136/85 06/08/21 05:57 Pulse Oximetry 99 06/08/21 05:57 Temperature 36.7 C 06/08/21 05:57 Temperature Source Temporal Artery Scan 06/08/21 05:57 Pulse 86 06/08/21 05:57 Respiratory Rate 18 06/08/21 05:57 Respiratory Effort 06/08/21 06:02 Blood Pressure 136/85 06/08/21 05:57 Blood Pressure Position Sitting 06/08/21 05:57 Pulse Oximetry 99 06/08/21 05:57 Oxygen Delivery Method Room Air 06/08/21 05:57 Oxygen Flow Rate 0 06/08/21 05:57 Pain Level 2 06/08/21 05:57
[2021-06-08 06:18] LABS: Abs Immature Grans 0.01 10^3/uL (0.0-0.06); Absolute Basophil Count 0.03 10^3/uL (0.0-0.2); Absolute Eosinophil Count 0.07 10^3/uL (0.0-0.7); Absolute Lymphocyte Count 1.89 10^3/uL (1.2-3.4); Absolute Monocyte Count 0.74 10^3/uL (0.1-0.8); Basophils % 0.4; Eosinophils % 0.8; HCT 48.9 % (40.0-50.0); HGB 16.2 g/dL (13.5-17.5); Immature Grans % 0.1; Lymphocytes % 22.1; MCH 27.9 pg (27.0-33.0); MCHC 33.1 % (32.0-36.0); MCV 84.3 fL (80-95); MPV 9.1 fL (8.0-11.0); Monocytes % 8.7; Neutrophils % 67.9; Nucleated RBC 0 %; Platelet Count 338 10^3/uL (130-400); RDW 12.7 % (11.8-14.1); RDW-SD 39.1 fL; WBC 8.54 10^3/uL (4.4-10.8)
[2021-06-08 06:31] LABS: ALT 31 U/L (16-63); AST 18 U/L (15-37); Alkaline Phosphatase 82 U/L (46-116); Anion Gap 6.9 mmol/L (3-11); BUN 14 mg/dL (7-18); Bilirubin, Total 0.4 mg/dL (0.2-1.0); CO2 28.1 mmol/L (21.0-32.0); CREATININE 0.9 mg/dL (0.70-1.30); Calcium 8.4 mg/dL (8.5-10.1); Chloride 103 mmol/L (98-107); Glucose 117 mg/dL (74-106); Lipase 134 U/L (73-393); Potassium 3.8 mmol/L (3.5-5.1); Sodium 138 mmol/L (136-145); Total Protein 7.4 g/dL (6.4-8.2)
--- NOTE | 2021-06-08 07:04 | NUR.NOTE ---
report to Skylar
--- NOTE | 2021-06-08 07:14 | DI.CT_ITS ---
Exam(s) CT ABDOMEN PELVIS W EXAM: CT ABDOMEN PELVIS W CLINICAL HISTORY: LLQ pain TECHNIQUE: Imaging Protocol: Axial computed tomography images with coronal and sagittal reformatted images were created and reviewed CONTRAST MATERIAL: Intravenous: Omnipaque 350 Contrast volume:100 mL Oral: No COMPARISON: No exams were available for comparison FINDINGS: ABDOMEN: Lung Bases: There is dependent atelectasis in the lung bases. Liver: Normal density. No measurable mass. Portal, Superior Mesenteric, and Splenic Veins: Unremarkable. Gallbladder and Biliary Tract: No radiodense calculus or dilation. There does appear to be mild thick ening of the wall of the gallbladder. Pancreas: Normal density, no abnormal calcifications or inflammatory process. Spleen: Normal. Adrenals: No masses seen. Kidneys: Normal size, contour and axis. No radiodense stones or obstructive uropathy. No masses seen. Abdominal Aorta: Abdominal portion non-dilated. Bowel: No obstruction or bowel wall thickening. Appendix is unremarkable. There is diverticulosis see n in the descending and sigmoid colon, there may be mild inflammatory stranding in the proximal sigmo id colon and an acute diverticulitis cannot be excluded. No free air or abscess is identified.. Peritoneal Cavity: No ascites, collection or mesenteric inflammatory response. No free air. Lymph Nodes: Within normal limits. Bones: Within normal limits for the patient's age. Soft Tissues: Unremarkable. PELVIS: Bladder: Symmetric distention, no gross wall thickening. Reproductive Organs: Unremarkable as visualized. Lymph Nodes: Within normal limits. Bones: Within normal limits for the patient's age. IMPRESSION: 1. Diverticulosis of the descending and sigmoid colon. There is a question of mild inflammatory stra nding around the proximal sigmoid colon and acute diverticulitis cannot be excluded. No abscess or f ree. 2. Nonspecific gallbladder wall thickening. Please correlate clinically. Ultrasound may be obtained for further evaluation. RADIATION DOSE DELIVERED: 900.5mGy.cm Total DLP DATA REPOSITORY: All CT scans at this facility are submitted to the National Radiology Data Registry (NRDR) Dose Index Registry (DIR) with the [employer] (ACR). RADIATION OPTIMIZATION: All CT scans at this facility use at least one of these dose optimization te chniques: automated exposure control; mA and/or kV adjustment per patient size (includes targeted exa ms where dose is matched to clinical indication); or iterative reconstruction.
[2021-06-08] MEDS: Omnipaque 350 MG/ML 100 ML BTL IJ (07:23)
[2021-06-08] MEDS: Normal Saline Flush 10 ML SYR IVP (07:25)
--- NOTE | 2021-06-08 07:28 | DI.VRAD_ITS ---
PROCEDURE INFORMATION: Exam: CT Abdomen And Pelvis With Contrast Exam date and time: 06/08/2021 6:08 AM Age: 30 years old Clinical indication: Abdominal pain; Localized; Left lower quadrant (llq); Patient HX: Llq pain that started yesterday. TECHNIQUE: Imaging protocol: Computed tomography of the abdomen and pelvis with contrast. Radiation optimization: All CT scans at this facility use at least one of these dose optimization techniques: automated exposure control; mA and/or kV adjustment per patient size (includes targeted exams where dose is matched to clinical indication); or iterative reconstruction. Contrast material: OMNI-PAQUE 350; Contrast volume: 100 ml; Contrast route: INTRAVENOUS (IV); COMPARISON: No relevant prior studies available. FINDINGS: Lungs: There is very mild left basilar dependent hypoventilatory change. Otherwise, the lung bases are normal. Liver: The liver is normal. There are no hepatic masses. There is no intrahepatic biliary ductal dilatation. Gallbladder and bile ducts: There is gallbladder wall thickening, up to 6 mm, with no radiopaque gallbladder calculi seen. There is no biliary ductal dilatation. Pancreas: The pancreas is normal with no ductal dilatation. Spleen: The spleen is normal, with no splenic masses. Adrenal glands: Bilateral adrenal glands are normal with no masses. Kidneys and ureters: Kidneys are normal bilaterally, with no hydronephrosis or hydroureter. Stomach and bowel: There is no evidence of obstruction. There are multiple scattered diverticula throughout the colon, with mild diffuse wall thickening throughout the sigmoid colon and very mild inflammatory stranding surrounding the mid sigmoid colon. Appendix: The appendix is normal. Intraperitoneal space: There is no intra-abdominal free air. There is no extraluminal fluid collection. Vasculature: Abdominal vasculature is normal. There is no abdominal aortic aneurysm. Lymph nodes: There is no significant lymphadenopathy. Urinary bladder: The urinary bladder is normal. There are no bladder calculi. Reproductive: Unremarkable as visualized. Bones/joints: There is no acute osseous pathology. Soft tissues: There is a small fat containing umbilical hernia. Otherwise, soft tissues are normal. IMPRESSION: 1. Acute sigmoid diverticulitis, mild. No evidence of peritoneal free air or extraluminal fluid collection. 2. Non-specific gallbladder wall thickening with no radiopaque gallbladder calculi. 3. Small fat containing umbilical hernia. Dictated and Authenticated by: Vladimir Michel MD. Ordering:KRUNAL Flores MD
[2021-06-08] MEDS: metroNIDAZOLE 500 MG TAB PO (08:10)
[2021-06-08] MEDS: levoFLOXacin 500 MG, levoFLOXacin 250 MG 750 MG PO (08:10)
[2021-06-08 08:22] VITALS: BP 132/75; PULSE 80; RESP 16; TEMP 36.7; O2SAT 99
--- NOTE | 2021-06-08 08:52 | NUR.NOTE ---
Nursing Note: Pt info given to care management to establish care. Florencia, ED
== END 2021-06-08 08:22 | disposition home or self-care (01) ==
PROVIDERS: Emergency Provider Student in an Organized Health Care Education/Training Program
DX: K57.32 Diverticulitis of large intestine without perforation or abscess without bleeding (principal); R10.32 Left lower quadrant pain
CPT/HCPCS: 36415; 80053; 83690; 96360; 99285; 74177; 81003; 85025; 99283; J3490

== ENCOUNTER 2021-06-11 06:03 | Emergency (ER) | payer MEDICAID, SELFPAY ==
[2021-06-11 06:07] VITALS: BP 154/87; PULSE 98; RESP 16; TEMP 37.1; O2SAT 100
[2021-06-11 06:09] VITALS: BP 154/87; PULSE 102; O2SAT 100
--- NOTE | 2021-06-11 06:15 | DI.CT_ITS ---
Exam(s) CT ABDOMEN PELVIS W EXAM: CT ABDOMEN PELVIS W CLINICAL HISTORY: worsening L abd pain, has diverticulitis. TECHNIQUE: Imaging Protocol: Axial computed tomography images with coronal and sagittal reformatted images were created and reviewed CONTRAST MATERIAL: Intravenous: Omnipaque 100cc Oral: None COMPARISON: CT CT ABDOMEN PELVIS W from 06/08/2021 FINDINGS: VISUALIZED LUNG BASES: Mild increased markings both lung bases. No pleural effusions. ABDOMEN: There is no ascites. LIVER: There are no focal hepatic lesions evident . GALLBLADDER/BILIARY: No obvious gallstones but the gallbladder wall appears edematous, similar to pre vious. Recommend ultrasound. Intrahepatic ducts and CBD are not dilated. PANCREAS: No evidence of pancreatic mass nor dilatation of the pancreatic duct. SPLEEN: Spleen is not enlarged. No obvious intrasplenic lesions. Splenic and portal veins are paten t. ADRENALS: There are no significant adrenal masses. KIDNEYS:No cysts evident. No solid renal masses. No calculi nor hydronephrosis.. ABDOMINAL AORTA: Abdominal aorta is not enlarged. LYMPH NODES:There is no retroperitoneal nor paraaortic adenopathy. ABDOMINAL WALL: No evidence of significant anterior abdominal wall nor inguinal hernia. GI: There is no evidence of bowel obstruction, free air, nor abscess. PELVIS: GI: Appendix diameter is upper normal, measuring 6 millimeters. No periappendiceal streaking. There is sigmoid diverticuli again noted. More so than expected in this age group. Very mild streaking a round the lower sigmoid noted. No abscess. No free fluid. LYMPH NODES: There is no intrapelvic nor inguinal adenopathy. REPRODUCTIVE: Prostate not enlarged. Seminal vesicles unremarkable. URINARY BLADDER: No calculi nor obvious masses evident OSSEOUS: No significant osseous lesions. IMPRESSION: 1. Gallbladder wall edema consistent with cholecystitis. No obvious calcified gallstones. CBD is no t dilated. Ultrasound recommended. 2. Sigmoid diverticulosis, more than typically seen at this age. Very mild streaking in this region. No abscess. No free air 3. Appendix thickness is upper normal. There is no inflammatory streaking in the mesoappendix. 4. No ascites. RADIATION DOSE DELIVERED: 855.02mGy.cm Total DLP DATA REPOSITORY: All CT scans at this facility are submitted to the National Radiology Data Registry (NRDR) Dose Index Registry (DIR) with the [employer] (ACR). RADIATION OPTIMIZATION: All CT scans at this facility use at least one of these dose optimization te chniques: automated exposure control; mA and/or kV adjustment per patient size (includes targeted exa ms where dose is matched to clinical indication); or iterative reconstruction.
--- NOTE | 2021-06-11 06:15 | W.ED.GENAD ---
Discharge Plan Disposition Patient Disposition: HOME Condition: Good Discharge Details Clinical Impression: Abdominal pain, Diverticulitis Primary Care Provider: Unknown,Unknown ED Provider: Carlitos Langston Home Meds and New Rx's Prescriptions: Continued levofloxacin 750 mg tablet 750 mg PO DAILY Qty: 9 RF: 0 metronidazole 500 mg tablet 500 mg PO TID Qty: 29 RF: 0 Discharge Instructions Instructions: Abdominal Pain (ED) Additional Instructions: At this time your diverticulitis is getting much better. Your laboratory work-up is also very encouraging. Please continue taking your antibiotic as directed. Stick with a bland diet of rice, bananas,, and toast for the few days. Avoid any fatty, greasy, or spicy foods. You can eat some yogurt with live culture or take a probiotic to help improve your gut health during this time. If you notice any worsening of your symptoms, or any new symptoms such as vomiting, diarrhea, fever, chills, shortness of breath, chest pain, numbness, weakness, or fainting , please return immediately to the emergency department for reevaluation. Please follow up with your primary care provider as soon as possible for reassessment and reevaluation. As always, it was a pleasure participating in your medical care today. Medical Decision Making 30-year-old male with a past medical history of a recent diagnosis of diverticulitis for which she was treated with Flagyl and levofloxacin, presents today for abdominal pain. Patient states that when he first came here 3 to 4 days ago he had mild left lower quadrant abdominal pain. He was started on antibiotics, had improvement of his pain 3 days ago, then yesterday his pain started to gradually come back, is notably worse today. Pain is always present, it comes and goes in severity. He states that the pain is now causing pain that reaches out from the left lower quadrant all the way up to his chest. He denies vomiting but does admit to new onset dark-colored stools/diarrhea. He has been taking the antibiotic as directed. He denies any chest pain. Denies any other complaints at this time. Physical exam demonstrates left lower quadrant abdominal pain, no guarding or rebound no. Patient states pain is worse than it was before. Concern is for worsening colitis/diverticulitis, or potential perforation/rupture. Discussed risk and CAT scan. Through shared decision-making process we will reevaluate with radiographic imaging for worsening abdominal pathology. Will rehydrate, treat patient's pain, monitor closely and reassess. 7:12 AM Laboratory work-up is returned, no white count, bandemia or left shift. Bilirubin normal, lactate 1.0. Electrolytes normal. No other significant abnormalities. Patient has not had a bowel movement while here. Patient feeling much better and feels ready to go home. Repeat CAT scan shows evidence of colonic diverticulosis, only trace pericolic stranding minimal diverticulitis. No evidence of perforation, rupture or other abnormality. There is evidence of gallbladder wall thickening which is noted but otherwise nonspecific. This does not correlate clinically for cholecystitis, on reassessment in initial assessment patient has no right upper quadrant pain subjectively, objectively he has no tenderness in the right upper quadrant, negative Cornell sign. No guarding or rebound whatsoever. Symptoms clinically inconsistent with acute cholecystitis. At this time with laboratory work-up normal, CT scan very reassuring, who see no indication for IV antibiotics or admission. Patient's pain is completely resolved. Recommend Tylenol Motrin at home, continued antibiotic therapy, close follow-up with his PCP. Discussed red flag to return. I have extensively reviewed the treatment plan and discharge instructions with the patient. I have addressed all patient concerns at this time. The patient was made aware of what symptoms to monitor for that would warrant a return to the emergency department. Discussed the plan with the patient, they demonstrate verbal understanding and agreement with our assessment and plan at this time. The documentation in this chart was dictated using [employer] dictation software. Please excuse any dictation errors. FINDINGS: Liver: Normal. No mass. Gallbladder and bile ducts: Gallbladder wall thickening is noted which is nonspecific and may reflect cholecystitis in the correct clinical setting. Pancreas: Normal. No ductal dilation. Spleen: Normal. No splenomegaly. Adrenal glands: Normal. No mass. Kidneys and ureters: Normal. No hydronephrosis. Stomach and bowel: Colonic diverticulosis is present . Trace pericolic stranding noted in the left hemipelvis may reflect minimal diverticulitis in the correct clinical setting. Appendix: No evidence of appendicitis. Intraperitoneal space: Unremarkable. No free air. No significant fluid collection. Vasculature: Unremarkable. No abdominal aortic aneurysm. Lymph nodes: Unremarkable. No enlarged lymph nodes. Urinary bladder: Unremarkable as visualized. Reproductive: Unremarkable as visualized. Bones/joints: Unremarkable. No acute fracture. Soft tissues: Unremarkable. IMPRESSION: 1. Gallbladder wall thickening is noted which is nonspecific and may reflect cholecystitis in the correct clinical setting. 2. Colonic diverticulosis is present . Trace pericolic stranding noted in the left hemipelvis may reflect minimal diverticulitis in the correct clinical setting. Thank you for allowing us to participate in the care of your patient. Dictated and Authenticated by: Luis Carlos Arguello MD 06/11/2021 7:01 AM Eastern Time ([place] & [place]) HPI General Date/Time Provider Initiated Documentation: 06/11/21 06:06. HPI Narrative: 30-year-old male with a past medical history of a recent diagnosis of diverticulitis for which she was treated with Flagyl and levofloxacin, presents today for abdominal pain. Patient states that when he first came here 3 to 4 days ago he had mild left lower quadrant abdominal pain. He was started on antibiotics, had improvement of his pain 3 days ago, then yesterday his pain started to gradually come back, is notably worse today. Pain is always present, it comes and goes in severity. He states that the pain is now causing pain that reaches out from the left lower quadrant all the way up to his chest. He denies vomiting but does admit to new onset dark-colored stools/diarrhea. He has been taking the antibiotic as directed. He denies any chest pain. Denies any other complaints at this time. Related Data Home Medications Medication Instructions Recorded Confirmed levofloxacin 750 mg PO DAILY #9 tab 06/08/21 06/11/21 metronidazole 500 mg PO TID #29 tab 06/08/21 06/11/21 Previous Rx's Medication Instructions Recorded levofloxacin 750 mg PO DAILY #9 tab 06/08/21 metronidazole 500 mg PO TID #29 tab 06/08/21 Allergies Allergy/AdvReac Type Severity Reaction Status Date / Time Penicillins AdvReac Unknown unknown Unverified 06/11/21 06:32 General Stated Complaint: Abd Prob RON: 3 Review of Systems All systems reviewed & are unremarkable except as noted in HPI and below PFSH All Active Problems (Updated 06/11/21 @ 07:09 by Carlitos Langston DO) Diverticulitis (Chronic) Abdominal pain (Acute) Diverticulitis (Chronic) Obesity, Class I, BMI 30-34.9 (Chronic) Alteration in speech (Acute) Hypertension (Acute) Discharge planning issues (Acute) DVT prophylaxis (Acute) Tobacco abuse (Acute) Expressive aphasia (Acute) Acute alteration in mental status (Acute) Medical History Cocaine abuse Depression Headache Tobacco abuse Surgical History S/P tonsillectomy and adenoidectomy Family History Mother Diabetes Father Cancer former smoker Social History Smoking/Tobacco Use Status: Current every day Smoking risk assessment performed?: Yes Alcohol Intake: former Drug use: Rarely Substance use type: marijuana Counseling given: Yes Do you feel safe at home: No Do you feel safe in your relationship?: No Additional Social history: pt currently not answering questions, per EMS pt has a history of drug use- crack/marijuana. Pt shakes head no when asked if he used drugs today but did tell EMS he used marijuana Exam Narrative Exam Narrative: 1.Const: Well-nourished, Well-developed, appearing stated age 2.Eyes: PERRL, no conjunctival injection, and symmetrical lids. 3.ENT: Atraumatic external nose and ears. Moist MM. Neck: Symmetric, trachea midline, No thyromegaly. 4.CVS: +S1/S2, No murmurs or gallops. Peripheral pulses 2+ and equal in all extremities. Brisk capillary refill in all extremities. 5.RESP: Unlabored respiratory effort. Clear to auscultation bilaterally. No wheezes rales or rhonchi 6.GI: Soft, nondistended, no guarding, mild tenderness in the left lower and left mid abdominal quadrant. No pain in the right lower quadrant. 7.MSK: Normocephalic/Atraumatic, Extremities w/o deformity or ttp No cyanosis or clubbing, Normal movement of all extremities 8.Skin: Warm, Dry. No rashes or lesions. 9.Neuro: heating and ventilating tender II-XII grossly intact. Sensation grossly intact, no focal neurologic deficits. 10.Psych: (AAO) x3. Appropriate mood and affect Course Vital Signs Vital signs: Vital Signs Temperature 37.1 C 06/11/21 06:07 Pulse 98 H 06/11/21 06:07 Respiratory Rate 16 06/11/21 06:07 Blood Pressure 154/87 H 06/11/21 06:07 Pulse Oximetry 100 06/11/21 06:07 Temperature 37.1 C 06/11/21 06:07 Temperature Source Temporal Artery Scan 06/11/21 06:07 Pulse 98 H 06/11/21 06:07 Respiratory Rate 16 06/11/21 06:07 Respiratory Effort Non-Labored 06/11/21 06:08 Blood Pressure 154/87 H 06/11/21 06:07 Blood Pressure Position Sitting 06/11/21 06:07 Pulse Oximetry 100 06/11/21 06:07 Oxygen Delivery Method Room Air 06/11/21 06:07 Oxygen Flow Rate 0 06/11/21 06:07 Sign Out Sign Out Data: Sign Out Comment: Diverticulitis recently, started on Levaquin/Flagyl. Return of abdominal pain yesterday. Pending repeat's CAT scan results. Last updated by Carlitos Langston DO at 06/11/21 06:57
[2021-06-11] MEDS: MORPHine 4 MG/ML SYR IVP (06:22)
[2021-06-11] MEDS: Normal Saline 1,000 ML 1000 ML IV (06:22)
[2021-06-11 06:27] LABS: Abs Immature Grans 0.02 10^3/uL (0.0-0.06); Absolute Basophil Count 0.02 10^3/uL (0.0-0.2); Absolute Eosinophil Count 0.08 10^3/uL (0.0-0.7); Absolute Lymphocyte Count 1.79 10^3/uL (1.2-3.4); Absolute Monocyte Count 0.83 10^3/uL (0.1-0.8); Absolute Neutrophil Count 4.03 10^3/uL (1.2-6.7); Basophils % 0.3; Eosinophils % 1.2; HCT 53.4 % (40.0-50.0); HGB 17.3 g/dL (13.5-17.5); Immature Grans % 0.3; Lymphocytes % 26.4; MCH 27.6 pg (27.0-33.0); MCHC 32.4 % (32.0-36.0); MCV 85.2 fL (80-95); MPV 9.4 fL (8.0-11.0); Monocytes % 12.3; Neutrophils % 59.5; Nucleated RBC 0 %; Platelet Count 348 10^3/uL (130-400); RBC 6.27 10^6/uL (4.36-5.78); RDW 12.8 % (11.8-14.1); RDW-SD 39.6 fL; WBC 6.77 10^3/uL (4.4-10.8)
[2021-06-11] MEDS: Omnipaque 350 MG/ML 100 ML BTL IJ (06:34)
[2021-06-11] MEDS: Normal Saline Flush 10 ML SYR IVP (06:35)
[2021-06-11 06:41] LABS: ALT 41 U/L (16-63); AST 17 U/L (15-37); Albumin 4.2 g/dL (3.4-5.0); Alkaline Phosphatase 86 U/L (46-116); Anion Gap 9.1 mmol/L (3-11); BUN 21 mg/dL (7-18); Bilirubin, Total 0.4 mg/dL (0.2-1.0); CO2 25.9 mmol/L (21.0-32.0); Calcium 8.9 mg/dL (8.5-10.1); Chloride 103 mmol/L (98-107); Glucose 106 mg/dL (74-106); Potassium 4.7 mmol/L (3.5-5.1); Sodium 138 mmol/L (136-145); Total Protein 7.9 g/dL (6.4-8.2)
[2021-06-11 06:43] LABS: Diff Comment Diff Reviewed; RBC Morphology Normal
--- NOTE | 2021-06-11 07:01 | DI.VRAD_ITS ---
PROCEDURE INFORMATION: Exam: CT Abdomen And Pelvis With Contrast Exam date and time: 06/11/2021 6:17 AM Age: 30 years old Clinical indication: Abdominal pain; Localized; Left; Patient HX: Worsening L abd pain, has diverticulitis TECHNIQUE: Imaging protocol: Computed tomography of the abdomen and pelvis with contrast. Radiation optimization: All CT scans at this facility use at least one of these dose optimization techniques: automated exposure control; mA and/or kV adjustment per patient size (includes targeted exams where dose is matched to clinical indication); or iterative reconstruction. Contrast material: OMNIPAQUE 350; Contrast volume: 100 ml; Contrast route: INTRAVENOUS (IV); COMPARISON: CT ABDOMEN PELVIS W 06/08/2021 7:07 AM FINDINGS: Liver: Normal. No mass. Gallbladder and bile ducts: Gallbladder wall thickening is noted which is nonspecific and may reflect cholecystitis in the correct clinical setting. Pancreas: Normal. No ductal dilation. Spleen: Normal. No splenomegaly. Adrenal glands: Normal. No mass. Kidneys and ureters: Normal. No hydronephrosis. Stomach and bowel: Colonic diverticulosis is present . Trace pericolic stranding noted in the left hemipelvis may reflect minimal diverticulitis in the correct clinical setting. Appendix: No evidence of appendicitis. Intraperitoneal space: Unremarkable. No free air. No significant fluid collection. Vasculature: Unremarkable. No abdominal aortic aneurysm. Lymph nodes: Unremarkable. No enlarged lymph nodes. Urinary bladder: Unremarkable as visualized. Reproductive: Unremarkable as visualized. Bones/joints: Unremarkable. No acute fracture. Soft tissues: Unremarkable. IMPRESSION: 1. Gallbladder wall thickening is noted which is nonspecific and may reflect cholecystitis in the correct clinical setting. 2. Colonic diverticulosis is present . Trace pericolic stranding noted in the left hemipelvis may reflect minimal diverticulitis in the correct clinical setting. Dictated and Authenticated by: Luis Carlos Arguello MD. Ordering:BEKAH Urbina MD
[2021-06-11] MEDS: Ketorolac 15 MG/ML VIAL IVP (07:10)
== END 2021-06-11 07:40 | disposition home or self-care (01) ==
PROVIDERS: Emergency Provider Student in an Organized Health Care Education/Training Program; PCP Nurse Practitioner
DX: R10.32 Left lower quadrant pain (principal); K57.92 Diverticulitis of intestine, part unspecified, without perforation or abscess without bleeding
CPT/HCPCS: 80053; 96361; 96374; 96375; 99285; 74177; 83605; 85025; 99283; J1885; J2270; J3490

== ENCOUNTER 2022-04-01 03:53 | Emergency (ER) | payer MEDICAID, SELFPAY ==
[2022-04-01 03:59] VITALS: BP 148/81; PULSE 91; RESP 16; TEMP 37; O2SAT 97
--- NOTE | 2022-04-01 04:15 | DI.CT_ITS ---
Exam(s) CT ABDOMEN PELVIS W EXAM: CT ABDOMEN PELVIS W CLINICAL HISTORY: left abd pain, hx of diverticulitis. TECHNIQUE: Imaging Protocol: Axial computed tomography images with coronal and sagittal reformatted images were created and reviewed CONTRAST MATERIAL: Intravenous: Omnipaque 350 Contrast volume:100 ml Oral: no COMPARISON: CT CT ABDOMEN PELVIS W from 06/08/[address] ABDOMEN PELVIS W from 06/11/2021 FINDINGS: ABDOMEN: Lung Bases: Normal where visualized. Liver: Normal density. No measurable mass. Gallbladder and biliary tract: Thickening of gallbladder wall. No significant stranding in the surro unding fat. Findings slightly worsened on prior exam. No radiodense calculus or biliary dilation. Pancreas: Normal density, no abnormal calcifications or inflammatory process. Spleen: Normal. Kidneys: Normal size, contour and axis. No radiodense stones or obstructive uropathy. No masses seen. Adrenal glands: No masses seen. Abdominal Aorta: Abdominal portion non-dilated. PELVIS: Bladder: No gross wall thickening. No calculi.No focal mass. Bowel: Sigmoid diverticulosis. No evidence of diverticulitis. No small-bowel obstruction or bowel w all thickening. Appendix normal. Peritoneal cavity: No ascites, collection or mesenteric inflammatory response. Bones: Within normal limits for age. Reproductive organs: Within normal limits. Lymph nodes: Unremarkable. Impression: Gallbladder wall thickening could represent acute cholecystitis. Ultrasound could be considered for further evaluation. Sigmoid diverticulosis without evidence of diverticulitis. RADIATION DOSE DELIVERED: 1,085.78mGy.cm Total DLP DATA REPOSITORY: All CT scans at this facility are submitted to the National Radiology Data Registry (NRDR) Dose Index Registry (DIR) with the [employer] (ACR). RADIATION OPTIMIZATION: All CT scans at this facility use at least one of these dose optimization te chniques: automated exposure control; mA and/or kV adjustment per patient size (includes targeted exa ms where dose is matched to clinical indication); or iterative reconstruction.
[2022-04-01] MEDS: Normal Saline 1,000 ML 1000 ML IV (04:25)
[2022-04-01 04:27] LABS: Abs Immature Grans 0.05 10^3/uL (0.0-0.06); Absolute Eosinophil Count 0.16 10^3/uL (0.0-0.7); Absolute Lymphocyte Count 3.11 10^3/uL (1.2-3.4); Absolute Neutrophil Count 7.16 10^3/uL (1.2-6.7); Basophils % 0.3; Eosinophils % 1.4; HCT 50.3 % (40.0-50.0); HGB 16.8 g/dL (13.5-17.5); Immature Grans % 0.4; Lymphocytes % 26.8; MCH 28.4 pg (27.0-33.0); MCHC 33.4 % (32.0-36.0); MCV 85 fL (80-95); MPV 9.3 fL (8.0-11.0); Monocytes % 9.5; Neutrophils % 61.6; Platelet Count 324 10^3/uL (130-400); RBC 5.92 10^6/uL (4.36-5.78); RDW 12.8 % (11.8-14.1); RDW-SD 39.9 fL; WBC 11.62 10^3/uL (4.4-10.8)
[2022-04-01] MEDS: Ondansetron 4 MG/2 ML VIAL IVP (04:27)
[2022-04-01] MEDS: MORPHine 4 MG/ML SYR 2 MG IVP (04:30)
--- NOTE | 2022-04-01 04:32 | ED.GENADUL_ITS ---
Discharge Plan Disposition Patient Disposition: Home Condition: Improving Discharge Details Chief Complaint: Abd Prob Clinical Impression: Abdominal pain Primary Care Provider: Leora Lea ED Provider: Israel Suarez Home Meds and New Rx's Prescriptions: No Action No Known Home Meds Discharge Instructions Instructions: Abdominal Pain (ED) Additional Instructions: Please follow-up with your primary care physician. Please return to the emergency department for any worsening symptoms. Medical Decision Making 31-year-old male history of diverticulitis presents with left lower quadrant abdominal pain nausea and vomiting this morning. Afebrile nontoxic nonperitoneal. Consider diverticulitis versus colitis versus enteritis versus less likely kidney stone. Screening labs imaging fluids antiemetics close reassessment 6: 12 patient resting comfortably no acute distress. Labs to recheck largely unremarkable. Given home care instructions and return precautions Sign Out No HPI General Date/Time Provider Initiated Documentation: 04/01/22 03:56 . HPI Narrative: 31-year-old male history of diverticulitis presents with left lower abdominal discomfort over the last several hours. Nausea 2 episodes of vomiting Related Data Home Medications Medication Instructions Recorded Confirmed Unknown [No Known Home Meds] 06/21/21 04/01/22 Allergies Allergy/AdvReac Type Severity Reaction Status Date / Time Penicillins AdvReac Unknown unknown Verified 04/01/22 04:02 General Stated Complaint: Abd Prob RON: 3 Review of Systems Narrative: Review of Systems Constitutional: negative Eyes: negative ENT: negative Cardiovascular: negative Respiratory: negative Gastrointestinal: Abdominal pain, nausea : negative Musculoskeletal: negative Skin: negative Neurologic: negative Psych: negative PFSH All Active Problems (Updated 04/01/22 @ 06:13 by Israel Suarez MD) Abdominal pain (Acute) Obesity, Class I, BMI 30-34.9 (Chronic) Alteration in speech (Acute) Hypertension (Acute) Discharge planning issues (Acute) DVT prophylaxis (Acute) Tobacco abuse (Acute) Expressive aphasia (Acute) Acute alteration in mental status (Acute) Medical History Cocaine abuse Depression Headache Tobacco abuse Surgical History S/P tonsillectomy and adenoidectomy Family History (Updated 06/21/21 @ 09:28 by Caitlyn Cunningham RN) Mother Diabetes Father Cancer former smoker Paternal Uncle Cancer Social History (Updated 06/21/21 @ 09:31 by Caitlyn Cunningham RN) Smoking/Tobacco Use Status: Current every day Tobacco: How many years used: 10 Smoking risk assessment performed?: Yes Alcohol Intake: current Alcohol Intake frequency: a few times a month Alcohol type: beer Drug use: Daily Substance use type: marijuana Counseling given: Yes Adopted: No Caregiver/Support person: No Foster care: No Household members: significant other and children Housing: house Number of Children: 2 Communication Needs: None Education Level: high school Do you need help understanding health information?: 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 Pets and animals: cat(s), dog(s) and other Details: chickens Sexually active: Yes Do you think of yourself as: straight/heterosexual Current gender identity: male What is your relationship status?: living with partner How often do you talk on the phone with friends or family?: three or more times per week How often do you get together with friends or relatives?: twice per week Do you belong to any clubs or organized social groups?: no Panel score (0-1 are the most socially isolated patients): 2 What type of physical activity do you participate in: walking and other Details: hunting, hiking Frequency: 3-4 times per week Special kavitha needs: No Seatbelt use: always Helmet use: Yes Helmet use: always Drive 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 w/intox emergency medical technician/driver: No Do you feel safe at home: No Do you feel safe in your relationship?: No Additional Social history: pt currently not answering questions, per EMS pt has a history of drug use- crack/marijuana. Pt shakes head no when asked if he used drugs today but did tell EMS he used marijuana Exam Narrative Exam Narrative: Physical Examination General: alert, awake, cooperative, resting comfortably, no acute distress HEENT: normocephalic, atraumatic; PERRL, EOM intact, conjunctiva normal; no nasal discharge; moist mucous membranes, oral and pharyngeal mucosa normal, tolerating secretions Neck: supple, trachea midline; full ROM Chest: normal to inspection Respiratory: normal respiratory effort, speaking in full sentences, clear to auscultation, no wheezing, rales or rhonchi Cardiac: regular rate, regular rhythm, S1S2 intact, no murmurs rubs or gallops GI: abdomen soft, non-tender, non-distended; no palpable mass or hepatosplenomegaly Skin: no lesions, rashes or trauma appreciated Neuro: AAOx3, normal speech, moving all extremities Psych: Appropriate mood and affect Course Vital Signs Vital signs: Vital Signs Temperature 37.0 C 04/01/22 03:59 Pulse 91 H 04/01/22 03:59 Respiratory Rate 16 04/01/22 03:59 Blood Pressure 148/81 H 04/01/22 03:59 Pulse Oximetry 97 04/01/22 03:59 Temperature 37.0 C 04/01/22 03:59 Temperature Source Oral 04/01/22 03:59 Pulse 91 H 04/01/22 03:59 Respiratory Rate 16 04/01/22 03:59 Respiratory Effort 04/01/22 03:59 Blood Pressure 148/81 H 04/01/22 03:59 Blood Pressure Position Sitting 04/01/22 03:59 Pulse Oximetry 97 04/01/22 03:59 Oxygen Delivery Method Room Air 04/01/22 03:59 Oxygen Flow Rate 0 04/01/22 03:59 Pain Level 7 04/01/22 03:59
[2022-04-01 04:34] LABS: Absolute Basophil Count 0.03 10^3/uL (0.0-0.2)
[2022-04-01 04:43] LABS: ALT 48 U/L (16-63); AST 23 U/L (15-37); Alkaline Phosphatase 93 U/L (46-116); Anion Gap 9.2 mmol/L (3-11); BUN 19 mg/dL (7-18); Bilirubin, Total 0.4 mg/dL (0.2-1.0); CO2 26.8 mmol/L (21.0-32.0); CREATININE 1.1 mg/dL (0.70-1.30); Calcium 8.7 mg/dL (8.5-10.1); Chloride 103 mmol/L (98-107); Estimated GFR 92.04 (mL/min/1.73m2); Glucose 111 mg/dL (74-106); Lipase 338 U/L (73-393); Potassium 3.8 mmol/L (3.5-5.1); Sodium 139 mmol/L (136-145); Total Protein 7.7 g/dL (6.4-8.2)
[2022-04-01] MEDS: Omnipaque 350 MG/ML 100 ML BTL IJ (04:49)
[2022-04-01] MEDS: Normal Saline Flush 10 ML SYR IVP (04:49)
[2022-04-01] MEDS: Normal Saline - Diluent 50 ML VIAL IJ (04:50)
--- NOTE | 2022-04-01 05:17 | DI.VRAD_ITS ---
PROCEDURE INFORMATION: Exam: CT Abdomen And Pelvis With Contrast Exam date and time: 04/01/2022 4:59 AM Age: 31 years old Clinical indication: Abdominal pain; Localized; Patient HX: Left abd pain, HX of diverticulitis TECHNIQUE: Imaging protocol: Computed tomography of the abdomen and pelvis with contrast. Radiation optimization: All CT scans at this facility use at least one of these dose optimization techniques: automated exposure control; mA and/or kV adjustment per patient size (includes targeted exams where dose is matched to clinical indication); or iterative reconstruction. Contrast material: OMNIPAQUE 350; Contrast volume: 100 ml; Contrast route: INTRAVENOUS (IV); COMPARISON: CT ABDOMEN PELVIS W 06/11/2021 6:42 AM FINDINGS: Lungs: Mild dependent atelectasis. Liver: Normal. No mass. Gallbladder and bile ducts: Gallbladder moderately distended. Prominent circumferential gallbladder wall thickening. No calcified gallstones. No biliary dilatation. Pancreas: Normal appearing pancreas. Spleen: Normal appearing spleen. Adrenal glands: Normal appearing adrenal glands. Kidneys and ureters: Normal appearing kidneys. No hydronephrosis. No obstructing ureteral stones. Stomach and bowel: No oral contrast. Stomach partially decompressed. No small bowel dilatation to suggest obstruction. Normal-appearing colon. No evidence of diverticulitis or colitis. Sigmoid diverticulosis. Mild mural thickening through the sigmoid region but no pericolic inflammatory change. Mild prominence of the perirectal veins suggesting hemorrhoids. Appendix: Normal appendix. Intraperitoneal space: No gross ascites or free air. Vasculature: Normal caliber abdominal aorta. Normal caliber abdominal aorta. Lymph nodes: No pathologically enlarged mesenteric, retroperitoneal, or pelvic sidewall lymph nodes. Urinary bladder: Normal appearing urinary bladder. Reproductive: Normal-appearing prostate gland and seminal vesicles. Bones/joints: No acute fracture seen among the bones of the abdomen or pelvis. Soft tissues: No significant ventral or inguinal hernia. IMPRESSION: 1. Gallbladder moderately distended. Prominent circumferential gallbladder wall thickening. Clinical correlation is recommended to assess the possibility of acute cholecystitis. No calcified gallstones. No biliary dilatation. 2. Sigmoid diverticulosis. Mild mural thickening through the sigmoid region but no pericolic inflammatory change. Muscular hypertrophy associated with diverticulosis or artifact of incomplete distention is suspected. Mild acute segmental colitis could perhaps mimic this appearance. Clinical correlation is recommended. No surrounding inflammatory change to suggest diverticulitis. Dictated and Authenticated by: Dez Mcgovern MD. Ordering:BRENT Wood MD
[2022-04-01 06:17] VITALS: BP 119/72; PULSE 68; RESP 16; TEMP 37; O2SAT 97
== END 2022-04-01 06:16 | disposition home or self-care (01) ==
PROVIDERS: Emergency Provider Emergency Medicine; PCP Nurse Practitioner
DX: R10.32 Left lower quadrant pain (principal); R11.2 Nausea with vomiting, unspecified
CPT/HCPCS: 36415; 80053; 83690; 96361; 96374; 96375; 99285; 74177; 85025; 99284; J2270; J2405; J3490

== ENCOUNTER 2022-06-27 11:17 | Outpatient (CLI) | payer MEDICAID, SELFPAY ==
--- NOTE | 2022-06-27 10:15 | DI.RAD_ITS ---
Exam(s) XR HIP LT COMPLETE AP PELVIS EXAM: XR HIP LT COMPLETE AP PELVIS CLINICAL HISTORY: Lt hip pain after fall end of march, M25.552, impaired mobility, Z74.09. TECHNIQUE: 2D digital imaging was performed of the left hip. Two views were obtained. AP pelvis an d lateral left hip views were obtained. COMPARISON: CT CT ABDOMEN PELVIS W from 06/08/[address] ABDOMEN PELVIS W from 04/01/2022 FINDINGS: BONES: No acute fracture is present. No bony destructive lesion is seen. There is a well corticated o sseous density adjacent to the greater tuberosity. This was present on the CT scan of the abdomen an d pelvis from 06/08/2021. This was prior to the patient's reported accident in March of 2022. JOINTS: No dislocation present. SOFT TISSUE: Normal. IMPRESSION: No acute abnormality. DATA REPOSITORY: RADIATION DOSE DELIVERED:
--- NOTE | 2022-06-27 10:15 | DI.RAD_ITS ---
Exam(s) XR KNEE LT 3V AP,LAT,RUDY EXAM: XR KNEE LT 3V AP,LAT,RUDY CLINICAL HISTORY: Lt knee pain after fall end of march, M25.562, impaired mobility, Z74.09. TECHNIQUE: 2D digital imaging was performed of the left knee. Three images were obtained. AP, late ral and PA tunnel views were obtained. COMPARISON: No exams were available for comparison FINDINGS: BONES: No acute fracture is present. No bony destructive lesion is seen. JOINTS: The knee is normally aligned. No joint effusion is seen. SOFT TISSUE: Normal. IMPRESSION: Normal radiographs of the left knee. DATA REPOSITORY: RADIATION DOSE DELIVERED:
--- OUTSIDE RECORDS SUMMARY | 2022-06-27 11:20 | XMS_ITS | CCD ---
Author Name Unknown Address [address] [place] [address] [phone] Organization Unknown Address [address] [place] [address] [id number] Care Team Providers Care Terminal Superintendent Name Role Phone SAUD TIERNEY, WAQAR Cortes Attending Physician [phone] STEFANI FOOTE MD Er Physician 0 [phone] Vital Signs Unknown or Not Available. Allergies Unknown or Not Available. Procedures Unknown or Not Available. History of Immunizations Unknown or Not Available. Problems Unknown or Not Available. Results COMPREHENSIVE METABOLIC PANE L (CMP) - Collect Date/Time: 01/02/2021 09:28 Test Name Code Test Result Test Units Test Ref Rang e GLUCOSE 2345-7 121 mg/dL L=70 H=116 BUN 3094-0 9 mg/dL L=6 H=25 CREATININE 2160-0 0.78 mg/dL L=0.67 H=1.17 SODIUM SERUM 2951-2 141 mmol/L L=136 H=145 POTASSIUM SERUM 2823-3 3.9 mmol/L L=3.4 H=5 .2 CHLORIDE SERUM 2075-0 105 mmol/L L=96 H=110 CARBON DIOXIDE (CO2) 2028-9 25 mmol/L L=22 H=34 ANION GAP 85706-4 10.7 mmol/L CALCIUM SERUM 20724-2 8.7 mg/dL L=8.2 H=10. 2 BILIRUBIN TOTAL 1975-2 0.4 mg/dL L=0.0 H=1 .3 ALK. PHOS. 6768-6 90 U/L L=46 H=116 SGOT (AST) 1920-8 15 U/L L=15 H=37 SGPT (ALT) 1742-6 43 U/L L=12 H=78 TOTAL PROTEIN 2885-2 8.2 gm/dL L=6.0 H=8.0 ALBUMIN 1751-7 4.2 gm/dL L=3.4 H=5.0 AGE 30 years eGFR (non-Afr.Amer.) 47178-3 117 mL/min eGFR (Afr-Chinese) 27168-6 >120 mL/min CBC W/ DIFFERENTIAL - Colle t Date/Time: 01/02/2021 09:28 Test Name Code Test Result Test Units Test Ref Rang e WBC 6690-2 15.48 th/cmm L=5.00 H=10.00 NEUT % 82.6 % L=40.0 H=80.0 LYMPH % 9.4 % L=10.0 H=50.0 MONO % 97669-4 6.9 % L=2.0 H=12.0 EOS % 0.3 % L=0.0 H=8.0 BASO % 0.3 % L=0.0 H=3.0 IG % 2514-8 0.5 % L=0.0 H=1.1 NRBC % 38678-0 0.0 % L=0.0 H=0.0 NEUT abs count 751-8 12.8 th/cmm L=1.6 H=8. 4 LYMPH abs count 731-0 1.5 th/cmm L=1.5 H=4 .0 MONO abs count 742-7 1.1 th/cmm L=0.2 H=1. 0 EOS abs count 711-2 0.0 th/cmm L=0.0 H=0.5 BASO abs count 704-7 0.1 th/cmm L=0.0 H=0. 2 IG abs count 02425-3 0.1 th/cmm L=0.0 H=0.1 NRBC abs count 07871-0 0.0 mil/cmm L=0.0 H=0. 0 RBC 789-8 6.04 mil/cmm L=4.30 H=6.20 HEMOGLOBIN 718-7 17.1 gm/dL L=13.0 H=17.0 HEMATOCRIT 4544-3 50 % L=45 H=52 MCV 787-2 83 fL L=82 H=92 MCH 785-6 28.3 pg L=27.0 H=31.0 MCHC 786-4 34.3 % L=32.0 H=36.0 RDW-SD 788-0 39.6 fL L=39.0 H=49.0 PLATELET COUNT 777-3 380 th/cmm L=150 H=45 0 STREP GROUP A ANTIGEN ASSAY - Collect Date/Time: 01/02/2021 08:10 Test Name Code Test Result Test Units Test Ref Rang e GRP A STREP ANTIGEN 6556-5 NOT DETECTED N/A MONO-TEST SCREEN - Collect D ate/Time: 01/02/2021 09:28 Test Name Code Test Result Test Units Test Ref Rang e MONOTEST 13026-5 NEGATIVE N/A Active Medications Unknown or Not Available. Medications Administered During Visit Unknown or Not Available. Encounters Encounter Diagnosis Diagnosis Code Start Date Acute pharyngitis, unspecified J029 0 01/02/2021 Social History Smoking Status Code Start Date End Date Former smoker [id number] Patient Decision Aids Unknown or Not Available. Discharge Instructions You were admitted to [facility] on 01/02/2021 08:02 with a principal diagnosis of Acute pharyngitis, unspecified You had the following tests done:CBC W/ DIFFERENTIALCOMPREHENSIVE METABOLIC PANEL (CMP)MONO-TEST SCREENSTREP GROUP A ANTIGEN ASSAY You were discharged from [facility] on 01/02/2021 10:52 Should you have any questions prior to discharge, please contact a member of your healthcare team. If you have left the hospital and have any questions, please contact your primary care physician. Chief Complaint and Reason For Visit Chief Complaint Date of Onset SORE THROAT Function Status Unknown or Not Available. Plan of Care Unknown or Not Available. Referral/Transition of Care Unknown or Not Available.
== END 2022-06-27 11:37 ==
LOC: DI 11:18
PROVIDERS: PCP Nurse Practitioner; Visit Provider Nurse Practitioner
DX: M25.552 Pain in left hip (principal); M25.562 Pain in left knee; Z74.09 Other reduced mobility; Z91.81 History of falling
CPT/HCPCS: 73562; 73502

== ENCOUNTER 2022-08-14 01:31 | Outpatient (CLI) | payer MEDICAID, SELFPAY ==
--- NOTE | 2022-08-14 10:45 | DI.MRI_ITS ---
Exam(s) MR LOWER JOINT LT WO EXAM: MR LOWER JOINT LT WO CLINICAL HISTORY: FELL, ? MENISCAL TEAR,S83.207A TECHNIQUE: Multiplanar multisequence MRI of the knee was performed. COMPARISON: CR XR KNEE LT 3V AP,LAT,RUDY from 06/27/2022 FINDINGS: EFFUSION: There is no evidence of prominent joint effusion. There is a tiny Vinson cyst in the medial popliteal fossa. This measures less than 1 cm. MARROW:There is no evidence of fracture, bone contusion, nor osteochondral defects.. There are no si gnificant osseous lesions. PATELLOFEMORAL COMPARTMENT: The quadriceps tendon is intact. The patellar ligament is intact. There is no significant thinning of the retropatellar cartilage. No evidence of fissure nor signific ant chondral defect. No osteochondral defect at this level.There is no intraosseous signal to sugges t recent patellar dislocation. There are no patellar retinacular tears. CRUCIATE LIGAMENTS: The anterior cruciate ligament is intact.The posterior cruciate ligament is intac t. MEDIAL COMPARTMENT/MEDIAL MENISCUS: There are no tears of the medial meniscus evident.. There are no chondral defects, osteochondral defects, subarticular marrow edema, nor osteophytes evid ent. MEDIAL COLLATERAL LIGAMENT: Intact LATERAL COMPARTMENT/LATERAL MENISCUS: There is no evidence of lateral meniscal tear.There are no jacey dral defects, osteochondral defects, subarticular marrow edema, nor osteophytes evident. ILIOTIBIAL BAND: Intact LATERAL COLLATERAL LIGAMENT COMPLEX: The fibular collateral ligament is intact. The biceps femoris t endon is intact.Popliteus muscle and tendon are intact. IMPRESSION: 1. No evidence of meniscal tears. 2. No cruciate nor collateral ligament tears. 3. No evidence of pivot shift bone contusion pattern nor other abnormal intraosseous signal abnormali ty. 4. No prominent joint effusion but there is a tiny sub cm Vinson's cyst in the medial popliteal fossa between the medial gastro cine medius and semimembranosus tendons. DATA REPOSITORY:
== END 2022-08-14 01:51 ==
LOC: DI 01:31
PROVIDERS: PCP Nurse Practitioner; Visit Provider Student in an Organized Health Care Education/Training Program
DX: M25.562 Pain in left knee; M71.22 Synovial cyst of popliteal space [Baker], left knee
CPT/HCPCS: 73721

== ENCOUNTER 2022-12-12 03:19 | Emergency (ER) | payer MEDICAID, SELFPAY ==
[2022-12-12 03:26] VITALS: BP 136/88; PULSE 16; RESP 16; TEMP 36.8; O2SAT 99
--- NOTE | 2022-12-12 03:45 | DI.CT_ITS ---
Exam(s) CT ABDOMEN PELVIS W EXAM: CT ABDOMEN PELVIS W CLINICAL HISTORY: LLQ abdominal pain TECHNIQUE: Imaging Protocol: Axial computed tomography images with coronal and sagittal reformatted images were created and reviewed CONTRAST MATERIAL: Intravenous: Omnipaque 350 Contrast volume:100 mL Oral: No COMPARISON: CT CT ABDOMEN PELVIS W from 04/01/2022 FINDINGS: ABDOMEN: Lung Bases: There is mild thickening of the distal esophagus. Mild dependent atelectasis. Liver: Normal density. No measurable mass. Portal, Superior Mesenteric, and Splenic Veins: Unremarkable. Gallbladder and Biliary Tract: No radiodense calculus or dilation. Pancreas: Normal density, no abnormal calcifications or inflammatory process. Spleen: Normal. Adrenals: No masses seen. Kidneys: Normal size, contour and axis. No radiodense stones or obstructive uropathy. No masses seen. Abdominal Aorta: Abdominal portion non-dilated. Bowel: There is diverticulosis seen in the colon. There is bowel wall thickening seen in the sigmoid colon with pericolonic inflammatory changes consistent with acute diverticulitis. No abscess or sunil e air. There is no evidence of bowel obstruction. Appendix is unremarkable. Peritoneal Cavity: No ascites, collection or mesenteric inflammatory response. No free air. Lymph Nodes: Within normal limits. Bones: Within normal limits for the patient's age. Soft Tissues: Unremarkable. PELVIS: Bladder: Symmetric distention, no gross wall thickening. Reproductive Organs: Unremarkable as visualized. Lymph Nodes: Within normal limits. Bones: Within normal limits for the patient's age. IMPRESSION: Mild diverticulitis involving the sigmoid colon. No abscess or free air. RADIATION DOSE DELIVERED: 794.55mGy.cm Total DLP DATA REPOSITORY: All CT scans at this facility are submitted to the National Radiology Data Registry (NRDR) Dose Index Registry (DIR) with the [employer] (ACR). RADIATION OPTIMIZATION: All CT scans at this facility use at least one of these dose optimization te chniques: automated exposure control; mA and/or kV adjustment per patient size (includes targeted exa ms where dose is matched to clinical indication); or iterative reconstruction.
--- NOTE | 2022-12-12 03:45 | W.ED.GENAD ---
Discharge Plan Discharge Details Chief Complaint: Abd Prob Primary Care Provider: Leora Lea ED Provider: Leandro Whitfield Home Meds and New Rx's Prescriptions: No Action acetaminophen [Tylenol] 325 mg capsule 325 mg PO ONCE PRN ibuprofen 200 mg capsule 200 mg PO Q6H PRN Discharge Data Discharge Date/Time-TO BE ENTERED AT DEPARTURE: 12/12/22 08:42 Medical Decision Making This patient's chart is in I paper note due to downtime the day of his visit HPI General Date/Time Provider Initiated Documentation: 12/12/22 03:45. Related Data Home Medications Medication Instructions Recorded Confirmed acetaminophen 325 mg capsule 325 mg PO ONCE PRN 08/20/22 08/20/22 (Tylenol) ibuprofen 200 mg capsule 200 mg PO Q6H PRN 08/20/22 08/20/22 Allergies Allergy/AdvReac Type Severity Reaction Status Date / Time Penicillins AdvReac Unknown unknown Verified 12/12/22 03:31 General Stated Complaint: Abd Prob RON: 3 PFSH All Active Problems (Updated 08/20/22 @ 15:51 by IJEOMA Lam) Left hamstring muscle strain (Acute) Tear of meniscus of left knee (Acute) Obesity, Class I, BMI 30-34.9 (Chronic) Alteration in speech (Acute) Hypertension (Acute) Discharge planning issues (Acute) DVT prophylaxis (Acute) Tobacco abuse (Acute) Expressive aphasia (Acute) Acute alteration in mental status (Acute) Medical History Cocaine abuse Depression Headache Tobacco abuse Surgical History S/P tonsillectomy and adenoidectomy Family History (Updated 06/21/21 @ 09:28 by Caitlyn Cunningham RN) Mother Diabetes Father Cancer former smoker Paternal Uncle Cancer Social History (Updated 06/27/22 @ 09:30 by Meggan Barksdale LPN) Smoking/Tobacco Use Status: Former Tobacco Use Tobacco: How many years used: 10 Smoking risk assessment performed?: Yes Alcohol Intake: former Drug use: Daily Substance use type: marijuana Counseling given: No Adopted: No Caregiver/Support person: No Foster care: No Household members: significant other and children Housing: house Number of Children: 2 Communication Needs: None Education Level: high school Do you need help understanding health information?: 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 Pets and animals: cat(s), dog(s) and other Details: chickens Sexually active: Yes Do you think of yourself as: straight/heterosexual Current gender identity: male What is your relationship status?: living with partner How often do you talk on the phone with friends or family?: three or more times per week How often do you get together with friends or relatives?: twice per week Do you belong to any clubs or organized social groups?: no Panel score (0-1 are the most socially isolated patients): 2 What type of physical activity do you participate in: walking and other Details: hunting, hiking Frequency: 3-4 times per week Special kavitha needs: No Seatbelt use: always Helmet use: Yes Helmet use: always Drive 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 w/intox vibratory pile driver: No Working smoke detector in home: Yes Carbon monox detector in home: Yes Do you feel safe at home: No Do you feel safe in your relationship?: No Victim of physical abuse: No Victim of emotional abuse: No Additional Social history: pt currently not answering questions, per EMS pt has a history of drug use- crack/marijuana. Pt shakes head no when asked if he used drugs today but did tell EMS he used marijuana 06/27/22 no drug use at all per pt. Course Vital Signs Vital signs: Vital Signs Temperature 36.8 C 12/12/22 03:26 Pulse 16 L 12/12/22 03:26 Respiratory Rate 16 12/12/22 03:26 Blood Pressure 136/88 12/12/22 03:26 Pulse Oximetry 99 12/12/22 03:26 Temperature 36.8 C 12/12/22 03:26 Temperature Source Temporal Artery Scan 12/12/22 03:26 Pulse 16 L 12/12/22 03:26 Respiratory Rate 16 12/12/22 03:26 Respiratory Effort Normal 12/12/22 03:26 Blood Pressure 136/88 12/12/22 03:26 Blood Pressure Position Sitting 12/12/22 03:26 Pulse Oximetry 99 12/12/22 03:26 Oxygen Delivery Method Room Air 12/12/22 03:26 Oxygen Flow Rate 0 12/12/22 03:26 Pain Level 9 12/12/22 03:26
[2022-12-12 03:53] LABS: Abs Immature Grans 0.03 10^3/uL (0.0-0.06); Absolute Basophil Count 0.03 10^3/uL (0.0-0.2); Absolute Eosinophil Count 0.16 10^3/uL (0.0-0.7); Absolute Lymphocyte Count 2.48 10^3/uL (1.2-3.4); Absolute Neutrophil Count 7.15 10^3/uL (1.2-6.7); Basophils % 0.3; Eosinophils % 1.5; HCT 46.6 % (40.0-50.0); HGB 15.7 g/dL (13.5-17.5); Immature Grans % 0.3; Lymphocytes % 22.9; MCH 28.2 pg (27.0-33.0); MCHC 33.7 % (32.0-36.0); MCV 84 fL (80-95); MPV 9.2 fL (8.0-11.0); Platelet Count 367 10^3/uL (130-400); RBC 5.56 10^6/uL (4.36-5.78); RDW 12.4 % (11.8-14.1); RDW-SD 38.1 fL; WBC 10.83 10^3/uL (4.4-10.8)
[2022-12-12 03:58] LABS: Absolute Monocyte Count 0.97 10^3/uL (0.1-0.8)
[2022-12-12] MEDS: Normal Saline 1,000 ML 1000 ML IV (04:00)
[2022-12-12] MEDS: Ondansetron 4 MG/2 ML VIAL IVP (04:00)
[2022-12-12] MEDS: MORPHine 10 MG/ML VIAL 4 MG IVP (04:03)
[2022-12-12 04:24] LABS: ALT 29 U/L (16-63); AST 19 U/L (15-37); Albumin 4.3 g/dL (3.4-5.0); Alkaline Phosphatase 86 U/L (46-116); BUN 20 mg/dL (7-18); Bilirubin, Total 0.5 mg/dL (0.2-1.0); CREATININE 0.9 mg/dL (0.70-1.30); Chloride 106 mmol/L (98-107); Estimated GFR 116.37 (mL/min/1.73m2); Glucose 135 mg/dL (74-106); Lipase 58 U/L (16-77); Potassium 3.8 mmol/L (3.5-5.1); Sodium 146 mmol/L (136-145); Total Protein 7.7 g/dL (6.4-8.2)
[2022-12-12] MEDS: Omnipaque 350 MG/ML 100 ML BTL IJ (04:35)
[2022-12-12] MEDS: Normal Saline - Diluent 50 ML VIAL IJ (04:35)
--- NOTE | 2022-12-12 04:52 | DI.VRAD_ITS ---
PROCEDURE INFORMATION: Exam: CT Abdomen And Pelvis With Contrast Exam date and time: 12/12/2022 4:36 AM Age: 32 years old Clinical indication: Abdominal pain; Localized; Left lower quadrant (llq); Additional info: Llq abdominal pain TECHNIQUE: Imaging protocol: Computed tomography of the abdomen and pelvis with contrast. Radiation optimization: All CT scans at this facility use at least one of these dose optimization techniques: automated exposure control; mA and/or kV adjustment per patient size (includes targeted exams where dose is matched to clinical indication); or iterative reconstruction. Contrast material: OMNI 350; Contrast volume: 100 ml; Contrast route: INTRAVENOUS (IV); COMPARISON: CT ABDOMEN PELVIS W 04/01/2022 4:59 AM FINDINGS: Liver: Normal. No mass. Gallbladder and bile ducts: Normal. No calcified stones. No ductal dilation. Pancreas: Normal. No ductal dilation. Spleen: Normal. No splenomegaly. Adrenal glands: Normal. No mass. Kidneys and ureters: Normal. No hydronephrosis. Stomach and bowel: Colonic diverticula. Mild acute diverticulitis of the sigmoid colon. Appendix: No evidence of appendicitis. Intraperitoneal space: Unremarkable. No free air. No significant fluid collection. Vasculature: Unremarkable. No abdominal aortic aneurysm. Lymph nodes: Unremarkable. No enlarged lymph nodes. Urinary bladder: Unremarkable as visualized. Reproductive: Unremarkable as visualized. Bones/joints: Unremarkable. No acute fracture. Soft tissues: Unremarkable. IMPRESSION: Mild acute diverticulitis of the sigmoid colon. Dictated and Authenticated by: Remigio Dugan MD. Ordering:NamOTJENNA Reeves MD
[2022-12-12] MEDS: CIPROFLOXACIN 400 MG/200 ML BAG 200 MG (06:05)
[2022-12-12] MEDS: metroNIDAZOLE 100 ML 100 MG (07:05)
== END 2022-12-12 08:42 ==
PROVIDERS: Emergency Provider Emergency Medicine Emergency Medical Services; PCP Nurse Practitioner
DX: R10.9 Unspecified abdominal pain (principal); K57.90 Diverticulosis of intestine, part unspecified, without perforation or abscess without bleeding
CPT/HCPCS: 36415; 80053; 83690; 96361; 96365; 96368; 96375; 99285; 74177; 85025; 99284; J0744; J2270; J2405; J3490

== ENCOUNTER 2023-04-14 01:56 | Emergency (ER) | payer MEDICAID, SELFPAY ==
[2023-04-14] VITALS (38 sets, daily range): BP systolic 92–155; BP diastolic 48–95; PULSE 56–82; RESP 7–29; TEMP 36.8; O2SAT 95–99
--- NOTE | 2023-04-14 02:00 | DI.CT_ITS ---
Exam(s) CT ABDOMEN PELVIS W EXAM: CT ABDOMEN PELVIS W CLINICAL HISTORY: LLQ abdominal pain and tenderness, hx diverticulit. TECHNIQUE: Imaging Protocol: Axial computed tomography images with coronal and sagittal reformatted images were created and reviewed CONTRAST MATERIAL: Intravenous: Omnipaque 350 Contrast volume:100 ml Oral: / no COMPARISON: CT CT ABDOMEN PELVIS W from 12/12/2022 FINDINGS: ABDOMEN and PELVIS: Lung Bases: No acute findings. Liver: Normal density. No measurable mass. Gallbladder and biliary tract: Gallbladder wall appears mildly thickened. No visible stones. No real iary dilatation. Pancreas: Normal density. No abnormal calcifications or inflammatory process. No evidence of mass. Spleen: Normal. Kidneys: Normal size, contour and axis. No radiodense stones. No obstructive uropathy. No suspicious masses seen. Adrenal glands: No masses seen. Vasculature: Abdominal aorta non-dilated. Soft tissues: Unremarkable. Bladder: No gross wall thickening. No calculi.No focal mass. Bowel: Mild dilatation of loops of small bowel without transition point. Finding may be normal relat ed to recently ingested material. Mild enteritis not excluded. Appendix normal.Diverticulosis. No evidence of diverticulitis. Peritoneal cavity: No ascites. No focal collection or mesenteric inflammatory response. Bones: Unremarkable for age. Reproductive organs: Within normal limits. Lymph nodes: Unremarkable. IMPRESSION:: Mild gallbladder wall thickening. Very dilatation. Consider ultrasound for further ev aluation if clinically indicated. Mild small bowel distention could represent transient finding versus mild enteritis. RADIATION DOSE DELIVERED: Total DLP DATA REPOSITORY: All CT scans at this facility are submitted to the National Radiology Data Registry (NRDR) Dose Index Registry (DIR) with the [employer] (ACR). RADIATION OPTIMIZATION: All CT scans at this facility use at least one of these dose optimization te chniques: automated exposure control; mA and/or kV adjustment per patient size (includes targeted exa ms where dose is matched to clinical indication); or iterative reconstruction.
--- NOTE | 2023-04-14 02:09 | W.ED.GENAD ---
Discharge Plan Disposition Patient Disposition: Home Condition: Good Discharge Details Clinical Impression: Diverticulitis, Abdominal pain Primary Care Provider: Leora Lea ED Provider: Harika Le Home Meds and New Rx's Prescriptions: New ondansetron 4 mg tablet,disintegrating 4 mg PO Q8H PRNQty: 30 0RF metronidazole 500 mg tablet 500 mg PO Q8H Qty: 15 0RF ciprofloxacin HCl [Cipro] 500 mg tablet 500 mg PO Q12H Qty: 10 0RF oxycodone 5 mg tablet 5 mg PO Q4H PRNQty: 8 0RF No Action acetaminophen [Tylenol] 325 mg capsule 325 mg PO ONCE PRN ibuprofen 200 mg capsule 200 mg PO Q6H PRN Discharge Instructions Instructions: Diverticulitis (ED), Diverticulitis Diet (ED) Additional Instructions: Follow a diverticulitis diet. Take the antibiotics for the next 5 days. Zofran up to every 8 hours as needed for nausea. Tylenol and ibuprofen over the counter for pain; follow the directions on the bottle. Oxycodone if necessary for severe pain up to every 4 hours. Call your primary care doctor today to schedule an appointment to followup with them this week. Followup on scheduling your colonoscopy appointment. Return to the emergency department for new or worsening symptoms including worsening pain, fever, inability to keep down fluids, pain in the upper right of your abdomen, yellow skin, or if you have any other concerns. Referrals: Leora Lea, [employer] [Primary Care Provider] - Medical Decision Making 32yo M with history of diverticulitis presenting with abdominal pain, nausea, and vomiting. Onset 9pm, nonbloody nonbilious emesis and left sided abdominal pain that feels like prior diverticulitits. No fevers or bloody stool. Vital signs reassuring on arrival, non-toxic, left sided abdominal tenderness with no rebound or guarding. Given morphine and zofran for symptoms. Labs reviewed as below, CBC & CMP reassuring; no leukoctyosis, normal electrolytes and LFTs, normal lipase. CT abd/pelvis reviewed, no obstruction on my view or free fluid, radiology read below without clear diverticulitis. Noted is some gallbladder distension and thickening; patient does not have an RUQ tenderness and his LFTs are normal. Findings were reviewed with patient, he states he his imaging always shows a big gallbladder with 'thickening'. Overall clinical picture most consistent with diverticulitis, will treat as such. Discharged home with 5 day course of abx, zofran, short course of oxycodone. Instructed to followup with surgery and with colonoscopy as previously planned. Discharged home; discharge instructions including return precautions were reviewed with patient who verbalized understanding. All questions were answered and they are in full agreement with the plan. Imaging Data Radiologic Study: Imaging: CT Scan Radiologist's impression: IMPRESSION: 1. Sigmoid diverticulosis without evidence of diverticulitis. 2. Moderate gallbladder distention. Apparent gallbladder wall thickening and/or fluid between the gallbladder and the liver. Clinical correlation is recommended to assess the possibility of acute cholecystitis. No calcified gallstones. No biliary dilatation. Lab Data Lab results reviewed: Yes I reviewed the patient's lab results. Labs: Laboratory Tests Range/Units 04/14/23 02:24 WBC (4.4-10.8) 10^3/uL 7.55 RBC (4.36-5.78) 10^6/uL 5.25 Hgb (13.5-17.5) g/dL 15.0 Hct (40.0-50.0) % 44.3 MCV (80-95) fL 84 MCH (27.0-33.0) pg 28.6 MCHC (32.0-36.0) % 33.9 RDW (11.8-14.1) % 12.8 Plt Count (130-400) 10^3/uL 290 MPV (8.0-11.0) fL 9.3 Immature Gran % 0.4 Neutrophils % 54.4 Lymphocytes % 33.5 Monocytes % 10.3 Eosinophils % 1.1 Basophils % 0.3 Nucleated RBC % (0.0-0.3) % 0.0 Absolute Neutrophils (1.2-6.7) 10^3/uL 4.11 Absolute Lymphocytes (1.2-3.4) 10^3/uL 2.53 Absolute Monocytes (0.1-0.8) 10^3/uL 0.78 Absolute Eosinophils (0.0-0.7) 10^3/uL 0.08 Absolute Basophils (0.0-0.2) 10^3/uL 0.02 VBG Lactate (0.6-1.4) mmol/L 0.8 Sodium (136-145) mmol/L 141 Potassium (3.5-5.1) mmol/L 3.8 Chloride (98-107) mmol/L 106 Carbon Dioxide (21.0-32.0) mmol/L 28.8 Anion Gap (3-11) mmol/L 6.2 BUN (7-18) mg/dL 17 Creatinine (0.70-1.30) mg/dL 0.9 Est GFR (CKD-EPI 2020) (mL/min/1.73m2) 116.37 Glucose (74-106) mg/dL 117 H Calcium (8.5-10.1) mg/dL 8.5 Total Bilirubin (0.2-1.0) mg/dL 0.2 AST (15-37) U/L 15 ALT (16-63) U/L 28 Alkaline Phosphatase (46-116) U/L 72 Total Protein (6.4-8.2) g/dL 6.8 Albumin (3.4-5.0) g/dL 3.6 Lipase (16-77) U/L 50 HPI General Mode of arrival: ambulatory. Date/Time Provider Initiated Documentation: 04/14/23 02:02. Limitations to Documentation: no limitations. Information obtained by: patient. HPI Narrative: 32yo M with history of diverticulitis presenting with abdominal pain, nausea, and vomiting. Symptoms started around 9pm yesterday evening, vomiting x 2 (nonbloody non bilious). Has felt constipated over the past 2-3 days with no bowel movement in that period of time. No bloody stool or diarhea. No fevers. Pain is dull, constant, moderate to severe, left sided, non radiating. Feels like prior episodes of diverticulitis. He is otherwise in his usual state of health with no chills, rash, dysuria, hematuria, or other concerns. Related Data Home Medications Medication Instructions Recorded Confirmed acetaminophen 325 mg capsule 325 mg PO ONCE PRN 08/20/22 04/14/23 (Tylenol) ibuprofen 200 mg capsule 200 mg PO Q6H PRN 08/20/22 04/14/23 ciprofloxacin HCl 500 mg tablet 500 mg PO Q12H #10 tabs 04/14/23 (Cipro) metronidazole 500 mg tablet 500 mg PO Q8H #15 tabs 04/14/23 ondansetron 4 mg disintegrating 4 mg PO Q8H PRN #30 tabs 04/14/23 tablet oxycodone 5 mg tablet 5 mg PO Q4H PRN #8 tabs 04/14/23 Previous Rx's Medication Instructions Recorded ciprofloxacin HCl 500 mg tablet 500 mg PO Q12H #10 tabs 04/14/23 (Cipro) metronidazole 500 mg tablet 500 mg PO Q8H #15 tabs 04/14/23 ondansetron 4 mg disintegrating 4 mg PO Q8H PRN #30 tabs 04/14/23 tablet oxycodone 5 mg tablet 5 mg PO Q4H PRN #8 tabs 04/14/23 Allergies Allergy/AdvReac Type Severity Reaction Status Date / Time Penicillins AdvReac Unknown unknown Verified 04/14/23 02:03 General Stated Complaint: Abd Prob RON: 3 Review of Systems Narrative: see HPI PFSH All Active Problems (Updated 04/14/23 @ 05:12 by Harika Le MD) Abdominal pain (Acute) Diverticulitis (Chronic) Left hamstring muscle strain (Acute) Tear of meniscus of left knee (Acute) Obesity, Class I, BMI 30-34.9 (Chronic) Alteration in speech (Acute) Hypertension (Acute) Discharge planning issues (Acute) DVT prophylaxis (Acute) Tobacco abuse (Acute) Expressive aphasia (Acute) Acute alteration in mental status (Acute) Medical History Cocaine abuse Depression Headache Tobacco abuse Surgical History S/P tonsillectomy and adenoidectomy Family History (Updated 06/21/21 @ 09:28 by Caitlyn Cunningham RN) Mother Diabetes Father Cancer former smoker Paternal Uncle Cancer Social History (Updated 06/27/22 @ 09:30 by Meggan Barksdale LPN) Smoking/Tobacco Use Status: Former Tobacco Use Tobacco: How many years used: 10 Smoking risk assessment performed?: Yes Alcohol Intake: former Drug use: Daily Substance use type: marijuana Counseling given: No Adopted: No Caregiver/Support person: No Foster care: No Household members: significant other and children Housing: house Number of Children: 2 Communication Needs: None Education Level: high school Do you need help understanding health information?: 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 Pets and animals: cat(s), dog(s) and other Details: chickens Sexually active: Yes Do you think of yourself as: straight/heterosexual Current gender identity: male What is your relationship status?: living with partner How often do you talk on the phone with friends or family?: three or more times per week How often do you get together with friends or relatives?: twice per week Do you belong to any clubs or organized social groups?: no Panel score (0-1 are the most socially isolated patients): 2 What type of physical activity do you participate in: walking and other Details: hunting, hiking Frequency: 3-4 times per week Special kavitha needs: No Seatbelt use: always Helmet use: Yes Helmet use: always Drive 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 w/intox newspaper delivery driver: No Working smoke detector in home: Yes Carbon monox detector in home: Yes Do you feel safe at home: No Do you feel safe in your relationship?: No Victim of physical abuse: No Victim of emotional abuse: No Additional Social history: pt currently not answering questions, per EMS pt has a history of drug use- crack/marijuana. Pt shakes head no when asked if he used drugs today but did tell EMS he used marijuana 06/27/22 no drug use at all per pt. 04/14/23 no illicit drugs per pt. Exam Narrative Exam Narrative: General: Alert, well appearing Head: Normocephalic, atraumatic Neck: Trachea midline, Neck supple. Cardiac: RRR, no murmurs appreciated Resp: No respiratory distress. CTAB. Abd: Soft, non-distended. Moderate left sided tenderness to palpation. No RUQ tenderness, negative Cornell's. : No suprapubic tenderness. No CVA tenderness. Extremities: No deformities. No peripheral edema. Neurologic: GCS 15. Moves all extremities freely against gravity Course Vital Signs Vital signs: Vital Signs Temperature 36.8 C 04/14/23 02:04 Pulse 76 04/14/23 02:04 Respiratory Rate 15 04/14/23 02:04 Blood Pressure 155/85 H 04/14/23 02:04 Pulse Oximetry 99 04/14/23 02:04 Temperature 36.8 C 04/14/23 02:04 Temperature Source Temporal Artery Scan 04/14/23 02:04 Pulse 76 12/11/23 02:04 Respiratory Rate 15 04/14/23 02:04 Respiratory Effort Normal, Non-Labored 04/14/23 02:06 Blood Pressure 155/85 H 04/14/23 02:04 Blood Pressure Position Supine 04/14/23 02:04 Pulse Oximetry 99 04/14/23 02:04 Oxygen Delivery Method Room Air 04/14/23 02:04 Oxygen Flow Rate 0 04/14/23 02:04 Pain Level 8 04/14/23 02:04
[2023-04-14] MEDS: Ondansetron 4 MG/2 ML VIAL IVP (02:19)
[2023-04-14 02:29] LABS: Lactate 0.8 mmol/L (0.6-1.4)
[2023-04-14 02:40] LABS: Abs Immature Grans 0.03 10^3/uL (0.0-0.06); Absolute Basophil Count 0.02 10^3/uL (0.0-0.2); Absolute Eosinophil Count 0.08 10^3/uL (0.0-0.7); Absolute Lymphocyte Count 2.53 10^3/uL (1.2-3.4); Absolute Monocyte Count 0.78 10^3/uL (0.1-0.8); Absolute Neutrophil Count 4.11 10^3/uL (1.2-6.7); Basophils % 0.3; Eosinophils % 1.1; HCT 44.3 % (40.0-50.0); Immature Grans % 0.4; Lymphocytes % 33.5; MCH 28.6 pg (27.0-33.0); MCHC 33.9 % (32.0-36.0); MCV 84 fL (80-95); MPV 9.3 fL (8.0-11.0); Monocytes % 10.3; Neutrophils % 54.4; Platelet Count 290 10^3/uL (130-400); RBC 5.25 10^6/uL (4.36-5.78); RDW 12.8 % (11.8-14.1); RDW-SD 39.4 fL; WBC 7.55 10^3/uL (4.4-10.8)
[2023-04-14 02:51] LABS: ALT 28 U/L (16-63); AST 15 U/L (15-37); Albumin 3.6 g/dL (3.4-5.0); Alkaline Phosphatase 72 U/L (46-116); Anion Gap 6.2 mmol/L (3-11); BUN 17 mg/dL (7-18); Bilirubin, Total 0.2 mg/dL (0.2-1.0); CO2 28.8 mmol/L (21.0-32.0); CREATININE 0.9 mg/dL (0.70-1.30); Calcium 8.5 mg/dL (8.5-10.1); Chloride 106 mmol/L (98-107); Estimated GFR 116.37 (mL/min/1.73m2); Glucose 117 mg/dL (74-106); Lipase 50 U/L (16-77); Potassium 3.8 mmol/L (3.5-5.1); Sodium 141 mmol/L (136-145); Total Protein 6.8 g/dL (6.4-8.2)
[2023-04-14] MEDS: Omnipaque 350 MG/ML 100 ML BTL IJ (03:19)
[2023-04-14] MEDS: Normal Saline - Diluent 50 ML VIAL IJ (03:20)
--- NOTE | 2023-04-14 03:55 | DI.VRAD_ITS ---
PROCEDURE INFORMATION: Exam: CT Abdomen And Pelvis With Contrast Exam date and time: 04/14/2023 3:16 AM Age: 32 years old Clinical indication: Abdominal pain; Localized; Left lower quadrant (llq); Patient HX: HX of diverticulitis TECHNIQUE: Imaging protocol: Computed tomography of the abdomen and pelvis with contrast. Radiation optimization: All CT scans at this facility use at least one of these dose optimization techniques: automated exposure control; mA and/or kV adjustment per patient size (includes targeted exams where dose is matched to clinical indication); or iterative reconstruction. Contrast material: OMNIPAQUE 350; Contrast volume: 100 ml; Contrast route: INTRAVENOUS (IV); COMPARISON: CT ABDOMEN PELVIS W 12/12/2022 4:36 AM FINDINGS: Lungs: Mild dependent atelectasis. Liver: Normal appearing liver. Gallbladder and bile ducts: Gallbladder moderately distended. Apparent gallbladder wall thickening and/or fluid between the gallbladder and the liver. No calcified gallstones. No biliary dilatation. Pancreas: Normal appearing pancreas. Spleen: Normal appearing spleen. Adrenal glands: Normal appearing adrenal glands. Kidneys and ureters: Normal appearing kidneys. No hydronephrosis. No obstructing ureteral stones. Stomach and bowel: No oral contrast. Stomach partially distended with fluid and ingested material. No small bowel dilatation to suggest obstruction. Moderate retained fecal material in the cecum, ascending colon, and transverse colon. Downstream colon relatively well evacuated. Sigmoid diverticulosis but no convincing evidence of acute diverticulitis or colitis. Appendix: Normal appendix. Intraperitoneal space: No gross ascites or free air. Vasculature: Normal caliber abdominal aorta. Lymph nodes: No pathologically enlarged mesenteric, retroperitoneal, or pelvic sidewall lymph nodes. Urinary bladder: Normal appearing urinary bladder. Reproductive: Normal-appearing prostate gland and seminal vesicles. Bones/joints: No acute fracture seen among the bones of the abdomen or pelvis. Soft tissues: Tiny fat-containing ventral hernia at the umbilicus, doubtful clinical significance. IMPRESSION: 1. Sigmoid diverticulosis without evidence of diverticulitis. 2. Moderate gallbladder distention. Apparent gallbladder wall thickening and/or fluid between the gallbladder and the liver. Clinical correlation is recommended to assess the possibility of acute cholecystitis. No calcified gallstones. No biliary dilatation. Dictated and Authenticated by: Dez Mcgovern MD. Ordering:LISA Shabazz MD
[2023-04-14 06:30] LABS: Bilirubin Negative (Negative); Blood Negative (Negative); Clarity Clear (Clear); Glucose Negative (Negative); Ketones Negative (Negative); Leukocyte Esterase Negative (Negative); Nitrite Negative (Negative); Urobilinogen 0.2 mg/dL (Up to 0.2)
== END 2023-04-14 06:30 | disposition home or self-care (01) ==
PROVIDERS: Emergency Provider Student in an Organized Health Care Education/Training Program; PCP Nurse Practitioner
DX: R10.32 Left lower quadrant pain (principal); R11.2 Nausea with vomiting, unspecified; K57.92 Diverticulitis of intestine, part unspecified, without perforation or abscess without bleeding; Z87.19 Personal history of other diseases of the digestive system; I10 Essential (primary) hypertension; E66.9 Obesity, unspecified; Z68.30 Body mass index [BMI] 30.0-30.9, adult; Z88.0 Allergy status to penicillin; Z79.899 Other long term (current) drug therapy
CPT/HCPCS: 80053; 83690; 96374; 96375; 99285; 74177; 81003; 83605; 85025; 99284; J2405; J3490

== ENCOUNTER 2023-06-22 03:27 | Emergency (ER) | payer MEDICAID, SELFPAY ==
[2023-06-22] VITALS (28 sets, daily range): BP systolic 104–158; BP diastolic 67–104; PULSE 70–96; RESP 15–24; TEMP 35.9; O2SAT 99
--- NOTE | 2023-06-22 03:45 | DI.CT_ITS ---
Exam(s) CT ABDOMEN PELVIS W EXAM: CT ABDOMEN PELVIS W CLINICAL HISTORY: LLQ TTP TECHNIQUE: Imaging Protocol: Axial computed tomography images with coronal and sagittal reformatted images were created and reviewed. CONTRAST MATERIAL: Intravenous: Omnipaque 350 Contrast volume:100 mL Oral: No COMPARISON: CT CT ABDOMEN PELVIS W from 04/01/[address] ABDOMEN PELVIS W from 12/12/[address] ABDOMEN PELVIS W from 04/14/2023 FINDINGS: ABDOMEN: Lung Bases: There is dependent atelectasis in the lung bases. Liver: Normal density. No measurable mass. Portal, Superior Mesenteric, and Splenic Veins: Unremarkable. Gallbladder and Biliary Tract: No radiodense calculus or dilation. Pancreas: Normal density, no abnormal calcifications or inflammatory process. Spleen: Normal. Adrenals: No masses seen. Kidneys: Normal size, contour and axis. No radiodense stones or obstructive uropathy. No masses seen. Abdominal Aorta: Abdominal portion non-dilated. Bowel: There are diverticula seen in the colon but no evidence of acute diverticulitis. There is no evidence of bowel obstruction. There is mild bowel wall thickening in loops of small bowel in the le ft upper quadrant. This may represent an enteritis. Appendix is unremarkable. Peritoneal Cavity: No ascites, collection or mesenteric inflammatory response. No free air. Lymph Nodes: Within normal limits. Bones: Within normal limits for the patient's age. Soft Tissues: Unremarkable. PELVIS: Bladder: Symmetric distention, no gross wall thickening. Reproductive Organs: Unremarkable as visualized. Lymph Nodes: Within normal limits. Bones: Within normal limits for the patient's age. IMPRESSION: Mild bowel wall thickening in mildly dilated loops of small bowel in the left upper quadrant suspicio us for an infectious/inflammatory enteritis. Please correlate clinically. RADIATION DOSE DELIVERED: 1,046.27mGy.cm Total DLP DATA REPOSITORY: All CT scans at this facility are submitted to the National Radiology Data Registry (NRDR) Dose Index Registry (DIR) with the [employer] (ACR). RADIATION OPTIMIZATION: All CT scans at this facility use at least one of these dose optimization te chniques: automated exposure control; mA and/or kV adjustment per patient size (includes targeted exa ms where dose is matched to clinical indication); or iterative reconstruction.
[2023-06-22 03:47] LABS: Lactate 1.4 mmol/L (0.6-1.4)
[2023-06-22 03:48] LABS: Abs Immature Grans 0.06 10^3/uL (0.0-0.06); Absolute Basophil Count 0.02 10^3/uL (0.0-0.2); Absolute Eosinophil Count 0.12 10^3/uL (0.0-0.7); Absolute Lymphocyte Count 2.48 10^3/uL (1.2-3.4); Absolute Monocyte Count 0.91 10^3/uL (0.1-0.8); Absolute Neutrophil Count 3.63 10^3/uL (1.2-6.7); Basophils % 0.3; Eosinophils % 1.7; HCT 49.5 % (40.0-50.0); HGB 16.5 g/dL (13.5-17.5); Immature Grans % 0.8; Lymphocytes % 34.3; MCH 28.4 pg (27.0-33.0); MCHC 33.3 % (32.0-36.0); MCV 85 fL (80-95); Monocytes % 12.6; Neutrophils % 50.3; Platelet Count 297 10^3/uL (130-400); RBC 5.82 10^6/uL (4.36-5.78); RDW 13.2 % (11.8-14.1); RDW-SD 41.3 fL; WBC 7.22 10^3/uL (4.4-10.8)
[2023-06-22] MEDS: Ondansetron 4 MG/2 ML VIAL IVP (03:55)
[2023-06-22] MEDS: MORPHine 4 MG/ML SYR IVP (04:02)
[2023-06-22 04:03] LABS: ALT 85 U/L (16-63); AST 25 U/L (15-37); Albumin 3.9 g/dL (3.4-5.0); Alkaline Phosphatase 78 U/L (46-116); Anion Gap 8.8 mmol/L (3-11); BUN 20 mg/dL (7-18); Bilirubin, Total 0.4 mg/dL (0.2-1.0); CO2 30.2 mmol/L (21.0-32.0); Chloride 103 mmol/L (98-107); Estimated GFR 101.92 (mL/min/1.73m2); Glucose 125 mg/dL (74-106); Lipase 41 U/L (16-77); Potassium 4.1 mmol/L (3.5-5.1); Sodium 142 mmol/L (136-145); Total Protein 7.3 g/dL (6.4-8.2)
--- NOTE | 2023-06-22 04:06 | ED.GENADUL_ITS ---
HPI General Mode of arrival: ambulatory . Date/Time Provider Initiated Documentation: 06/22/23 03:39 . Limitations to Documentation: no limitations . Information obtained by: patient and old records reviewed . HPI Narrative: 33yo M with hx of HTN, diverticulitis presenting with LLQ abdominal pain and nausea since yesterday evening. No vomiting. Feels like prior episodes of diverticulitis. Had an outpatient colonocsopy planned for March but had to cancel, has not rescheduled yet. Normal BM yesterday, non-bloody. He is otherwise in his usual state of health with no fevers, chills, rash, dysuria, hematuria, testicular pain, penile discharge, chest pain, shortness of breath, or other concerns. Related Data Home Medications Medication Instructions Recorded Confirmed acetaminophen 325 mg capsule 325 mg PO ONCE PRN 08/20/22 06/22/23 (Tylenol) ibuprofen 200 mg capsule 200 mg PO Q6H PRN 08/20/22 06/22/23 ciprofloxacin HCl 500 mg tablet 500 mg PO Q12H #10 tabs 06/22/23 (Cipro) metronidazole 500 mg tablet 500 mg PO Q8H #15 tabs 06/22/23 ondansetron 4 mg disintegrating 4 mg PO Q8H PRN #10 tabs 06/22/23 tablet oxycodone 5 mg tablet 5 mg PO Q8H PRN #7 tabs 06/22/23 Previous Rx's Medication Instructions Recorded ciprofloxacin HCl 500 mg tablet 500 mg PO Q12H #10 tabs 06/22/23 (Cipro) metronidazole 500 mg tablet 500 mg PO Q8H #15 tabs 06/22/23 ondansetron 4 mg disintegrating 4 mg PO Q8H PRN #10 tabs 06/22/23 tablet oxycodone 5 mg tablet 5 mg PO Q8H PRN #7 tabs 06/22/23 Allergies Allergy/AdvReac Type Severity Reaction Status Date / Time Penicillins AdvReac Unknown unknown Verified 06/22/23 03:35 General Stated Complaint: Abd Prob RON: 3 Review of Systems Narrative: see HPI Exam Narrative Exam Narrative: General: Alert, well appearing, well nourished, in no acute distress. Head: Normocephalic, atraumatic Neck: Trachea midline, ?Neck supple. ENT: ?MMM.? No oropharygeal lesions or exudate. Cardiac: ?RRR, no murmurs appreciated Resp: No respiratory distress. CTAB. Abd: ?Soft, non-distended, left abdomen TTP with no rebound or guarding. : ?No suprapubic tenderness. . Extremities: ?No deformities.? No peripheral edema. Neurologic: GCS 15. ? Moves all extremities freely against gravity Course Vital Signs Vital signs: Vital Signs Temperature 35.9 C L 06/22/23 03:31 Pulse 96 H 06/22/23 03:31 Respiratory Rate 18 06/22/23 03:31 Blood Pressure 158/100 H 06/22/23 03:31 Pulse Oximetry 99 06/22/23 03:31 Temperature 35.9 C L 06/22/23 03:38 Temperature Source Tympanic 06/22/23 03:38 Pulse 84 06/22/23 04:00 Pulse 86 06/22/23 04:02 Respiratory Rate 19 06/22/23 04:02 Respiratory Effort Normal, Non-Labored 06/22/23 03:35 Blood Pressure 145/104 H 06/22/23 04:00 Blood Pressure Mean 117 06/22/23 04:00 Blood Pressure Position Supine 06/22/23 03:38 Pulse Oximetry 99 06/22/23 03:38 Oxygen Delivery Method Room Air 06/22/23 03:38 Oxygen Flow Rate 0 06/22/23 03:31 Pain Level 8 06/22/23 03:38 Lab/Test Results Lab/Test Results: Laboratory Tests Range/Units 06/22/23 03:40 WBC (4.4-10.8) 10^3/uL 7.22 RBC (4.36-5.78) 10^6/uL 5.82 H Hgb (13.5-17.5) g/dL 16.5 Hct (40.0-50.0) % 49.5 MCV (80-95) fL 85 MCH (27.0-33.0) pg 28.4 MCHC (32.0-36.0) % 33.3 RDW (11.8-14.1) % 13.2 Plt Count (130-400) 10^3/uL 297 MPV (8.0-11.0) fL 9.0 Immature Gran % 0.8 Neutrophils % 50.3 Lymphocytes % 34.3 Monocytes % 12.6 Eosinophils % 1.7 Basophils % 0.3 Nucleated RBC % (0.0-0.3) % 0.0 Absolute Neutrophils (1.2-6.7) 10^3/uL 3.63 Absolute Lymphocytes (1.2-3.4) 10^3/uL 2.48 Absolute Monocytes (0.1-0.8) 10^3/uL 0.91 H Absolute Eosinophils (0.0-0.7) 10^3/uL 0.12 Absolute Basophils (0.0-0.2) 10^3/uL 0.02 VBG Lactate (0.6-1.4) mmol/L 1.4 Medical Decision Making 33yo M with hx of HTN, diverticulitis presenting with LLQ abdominal pain and nausea since yesterday evening. No vomiting or fevers. Seen in this ED 04/14/23 for similar symptoms, diagnosed with diverticulitis flare, plan to followup with surgery for colonoscopy; significant other had baby in April and he has not followed up. Hypertensive on arrival, vital signs otherwise barney ssuring. Left sided abdominal tenderness on exam with no rebound or guarding. Nontoxic, not peritoneal, not septic. Given morphine and zofran for symptoms. Labs reviewed as below, CBC reassuring with no leukocytosis, CMP with no significant abnormalities, lactate normal, lipase normal and not suggestive of pancreatitis. CT abd/pelvis independently reviewed, no obstruction or free fluid on my view, radiology read below with no acute findings. On reassessment remains non-toxic appearing with reassuring vital signs, non-peritoneal abdominal exam. PO challenged and tolerated fluids. Requesting discharge home. CT negative however clinically presents as diverticulitis and patient reports this feels identical to rpior episodes; will treat as such. Discharged home on 5 days of abx, short course of zofran and oxycodone. Outpatient surgical referral placed. Patient instructed that he needs to followup for colonsocopy. Discharged home; discharge instructions including return precautions were reviewed with patient who verbalized understanding. All questions were answered and they are in full agreement with the plan. Medical Records Medical records reviewed: Yes I reviewed the patient's medical records. Imaging Data Radiologic Study: Imaging: CT Scan Radiologist's impression: IMPRESSION: No acute findings. Lab Data Lab results reviewed: Yes I reviewed the patient's lab results. Labs: Laboratory Tests Range/Units 06/22/23 03:40 WBC (4.4-10.8) 10^3/uL 7.22 RBC (4.36-5.78) 10^6/uL 5.82 H Hgb (13.5-17.5) g/dL 16.5 Hct (40.0-50.0) % 49.5 MCV (80-95) fL 85 MCH (27.0-33.0) pg 28.4 MCHC (32.0-36.0) % 33.3 RDW (11.8-14.1) % 13.2 Plt Count (130-400) 10^3/uL 297 MPV (8.0-11.0) fL 9.0 Immature Gran % 0.8 Neutrophils % 50.3 Lymphocytes % 34.3 Monocytes % 12.6 Eosinophils % 1.7 Basophils % 0.3 Nucleated RBC % (0.0-0.3) % 0.0 Absolute Neutrophils (1.2-6.7) 10^3/uL 3.63 Absolute Lymphocytes (1.2-3.4) 10^3/uL 2.48 Absolute Monocytes (0.1-0.8) 10^3/uL 0.91 H Absolute Eosinophils (0.0-0.7) 10^3/uL 0.12 Absolute Basophils (0.0-0.2) 10^3/uL 0.02 VBG Lactate (0.6-1.4) mmol/L 1.4 Sodium (136-145) mmol/L 142 Potassium (3.5-5.1) mmol/L 4.1 Chloride (98-107) mmol/L 103 Carbon Dioxide (21.0-32.0) mmol/L 30.2 Anion Gap (3-11) mmol/L 8.8 BUN (7-18) mg/dL 20 H Creatinine (0.70-1.30) mg/dL 1.0 Est GFR (CKD-EPI 2020) (mL/min/1.73m2) 101.92 Glucose (74-106) mg/dL 125 H Calcium (8.5-10.1) mg/dL 9.0 Total Bilirubin (0.2-1.0) mg/dL 0.4 AST (15-37) U/L 25 ALT (16-63) U/L 85 H Alkaline Phosphatase (46-116) U/L 78 Total Protein (6.4-8.2) g/dL 7.3 Albumin (3.4-5.0) g/dL 3.9 Lipase (16-77) U/L 41 Quality:SDOH Health Related Social Needs: No Data to Display PFSH All Active Problems (Updated 06/22/23 @ 05:59 by Harika Le MD) Diverticulitis (Chronic) Left hamstring muscle strain (Acute) Tear of meniscus of left knee (Acute) Obesity, Class I, BMI 30-34.9 (Chronic) Alteration in speech (Acute) Hypertension (Acute) Discharge planning issues (Acute) DVT prophylaxis (Acute) Tobacco abuse (Acute) Expressive aphasia (Acute) Acute alteration in mental status (Acute) Medical History Cocaine abuse Depression Headache Tobacco abuse Surgical History S/P tonsillectomy and adenoidectomy Family History (Updated 06/21/21 @ 09:28 by Caitlyn Cunningham RN) Mother Diabetes Father Cancer former smoker Paternal Uncle Cancer Social History (Updated 06/27/22 @ 09:30 by Meggan Barksdale LPN) Smoking/Tobacco Use Status: Current every day Tobacco Type: cigarettes Tobacco: How many years used: 10 Smoking risk assessment performed?: Yes Alcohol Intake: former Drug use: Daily Substance use type: marijuana Counseling given: No Adopted: No Caregiver/Support person: No Foster care: No Household members: significant other and children Housing: house Number of Children: 2 Communication Needs: None Education Level: high school Do you need help understanding health information?: 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 Pets and animals: cat(s), dog(s) and other Details: chickens Sexually active: Yes Do you think of yourself as: straight/heterosexual Current gender identity: male What is your relationship status?: living with partner How often do you talk on the phone with friends or family?: three or more times per week How often do you get together with friends or relatives?: twice per week Do you belong to any clubs or organized social groups?: no Panel score (0-1 are the most socially isolated patients): 2 What type of physical activity do you participate in: walking and other Details: hunting, hiking Frequency: 3-4 times per week Special kavitha needs: No Seatbelt use: always Helmet use: Yes Helmet use: always 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 Working smoke detector in home: Yes Carbon monox detector in home: Yes Do you feel safe at home: No Do you feel safe in your relationship?: No Victim of physical abuse: No Victim of emotional abuse: No Discharge Plan Disposition Patient Disposition: Home Condition: Good Discharge Details Clinical Impression: Diverticulitis Primary Care Provider: Leora Lea ED Provider: Harika Le Home Meds and New Rx's Prescriptions: New ciprofloxacin HCl [Cipro] 500 mg tablet 500 mg PO Q12H Qty: 10 0RF metronidazole 500 mg tablet 500 mg PO Q8H Qty: 15 0RF ondansetron 4 mg tablet,disintegrating 4 mg PO Q8H PRNQty: 10 0RF oxycodone 5 mg tablet 5 mg PO Q8H PRNQty: 7 0RF No Action acetaminophen [Tylenol] 325 mg capsule 325 mg PO ONCE PRN ibuprofen 200 mg capsule 200 mg PO Q6H PRN Discharge Instructions Instructions: Diverticulitis (ED), Diverticulitis Diet (ED) Additional Instructions: Follow a diverticulitis diet. Take the antibiotics for the next 5 days. Zofran up to every 8 hours as needed for nausea. Tylenol and ibuprofen over the counter for pain; follow the directions on the bottle. Oxycodone if necessary for severe pain up to every 8 hours. Call your primary care doctor today to schedule an appointment to followup with them this week. Followup on scheduling your colonoscopy appointment A referall has been placed to surgery- they should give you a call as well. Return to the emergency department for new or worsening symptoms including worsening pain, fever, inability to keep down fluids, or if you have any other concerns. Referrals: Leora Lea NP [Primary Care Provider] -
[2023-06-22] MEDS: Normal Saline - Diluent 50 ML VIAL IJ (04:09)
[2023-06-22] MEDS: Omnipaque 350 MG/ML 100 ML BTL IJ (04:09)
--- NOTE | 2023-06-22 04:52 | DI.VRAD_ITS ---
PROCEDURE INFORMATION: Exam: CT Abdomen And Pelvis With Contrast Exam date and time: 06/22/2023 4:15 AM Age: 33 years old Clinical indication: Abdominal pain; Localized; Left lower quadrant (llq); Patient HX: Llq ttp TECHNIQUE: Imaging protocol: Computed tomography of the abdomen and pelvis with contrast. Contrast material: OMNIPAQUE 350; Contrast volume: 100 ml; Contrast route: INTRAVENOUS (IV); COMPARISON: CT ABDOMEN PELVIS W 04/14/2023 3:16 AM FINDINGS: Liver: Normal. No mass. Gallbladder and bile ducts: Normal. No calcified stones. No ductal dilation. Pancreas: Unremarkable. Spleen: Normal. Adrenal glands: Normal. No mass. Kidneys and ureters: Normal. No hydronephrosis. Stomach and bowel: Colonic diverticulosis. No diverticulitis. No bowel wall thickening or intestinal obstruction. Appendix: Normal appendix. Intraperitoneal space: Unremarkable. No pneumoperitoneum. No abscess. Vasculature: Unremarkable. Lymph nodes: Unremarkable. Urinary bladder: Unremarkable as visualized. Reproductive: Unremarkable as visualized. Bones/joints: Unremarkable. No acute fracture. Soft tissues: Unremarkable. IMPRESSION: No acute findings. Dictated and Authenticated by: Olegario Roque MD. Ordering:LISA Shabazz MD
--- NOTE | 2023-06-22 06:02 | NUR.NOTE ---
Pt placed on care management referral list to see Surgery for Diverticulitis, to be seen within [address] Le
== END 2023-06-22 06:32 | disposition home or self-care (01) ==
PROVIDERS: Emergency Provider Student in an Organized Health Care Education/Training Program; PCP Nurse Practitioner
DX: K57.32 Diverticulitis of large intestine without perforation or abscess without bleeding (principal); R11.0 Nausea; I10 Essential (primary) hypertension; F17.210 Nicotine dependence, cigarettes, uncomplicated
CPT/HCPCS: 80053; 83690; 96374; 96375; 99285; 74177; 83605; 85025; 99284; J2270; J2405; J3490

== ENCOUNTER 2023-08-25 05:37 | Emergency (ER) | payer MEDICAID, SELFPAY ==
[2023-08-25 05:39] VITALS: BP 179/115; PULSE 89; RESP 16; TEMP 36.6; O2SAT 99
--- NOTE | 2023-08-25 05:49 | ED.GENADUL_ITS ---
Discharge Plan Disposition Patient Disposition: Home Condition: Good Discharge Details Clinical Impression: Diverticulitis Primary Care Provider: Leora Lea ED Provider: Carlitos Langston Home Meds and New Rx's Prescriptions: New ciprofloxacin HCl [Cipro] 500 mg tablet 500 mg PO BID 7 Days Qty: 14 0RF metronidazole 500 mg tablet 500 mg PO TID 7 Days Qty: 21 0RF No Action acetaminophen [Tylenol] 325 mg capsule 325 mg PO ONCE PRN ibuprofen 200 mg capsule 200 mg PO Q6H PRN polyethylene glycol 3350 [Miralax] 17 gram/dose powder 17 g PO DAILY Discharge Instructions Instructions: Diverticulitis (ED) Additional Instructions: At this time your symptoms appear consistent with diverticulitis. Through our shared decision-making process we have decided to hold off on CAT scan and labs at this time due to your clinical history and current symptomatology. Please take the antibiotics as directed. Please take Tylenol and Motrin as needed for pain. Please follow-up closely with your surgeon for your scheduled colonoscopy. As we discussed together, if you notice any worsening of your symptoms it is imperative that you return immediately for reassessment and potential further imaging and labs. If you notice any worsening of your symptoms, or any new symptoms such as vomiting, diarrhea, fever, chills, shortness of breath, chest pain, numbness, weakness, or fainting , please return immediately to the emergency department for reevaluation. Please follow up with your primary care provider as soon as possible for reassessment and reevaluation. As always, it was a pleasure participating in your medical care today. Referrals: Leora Lea, DINAH [Primary Care Provider] - [facility] General Date/Time Provider Initiated Documentation: 08/25/23 05:39 . HPI Narrative: 33-year-old male with a past medical history of tobacco use, and chronic recurrent diverticulitis who presents today for evaluation of left lower quadrant abdominal pain. Patient states that symptoms began last night at around 9 PM, and then continued throughout the night worsening today. They states that it feels identical to diverticulitis. He denies any new foods. He has had nausea but no vomiting. Pain is achy and located in the left lower abdominal quadrant with slight radiation upward. Patient denies eating any small seeds, greasy foods, or dairy foods. He has not taken any medications for the pain. No other complaints at this time. No other modifying factors. He d oes admit to mild constipation, denies diarrhea. Related Data Home Medications Medication Instructions Recorded Confirmed acetaminophen 325 mg capsule 325 mg PO ONCE PRN 08/20/22 08/25/23 (Tylenol) ibuprofen 200 mg capsule 200 mg PO Q6H PRN 08/20/22 08/25/23 ciprofloxacin HCl 500 mg tablet 500 mg PO BID 7 days #14 tabs 08/25/23 (Cipro) metronidazole 500 mg tablet 500 mg PO TID 7 days #21 tabs 08/25/23 polyethylene glycol 3350 17 17 g PO DAILY 08/25/23 08/25/23 gram/dose oral powder (Miralax) Previous Rx's Medication Instructions Recorded ciprofloxacin HCl 500 mg tablet 500 mg PO BID 7 days #14 tabs 08/25/23 (Cipro) metronidazole 500 mg tablet 500 mg PO TID 7 days #21 tabs 08/25/23 Allergies Allergy/AdvReac Type Severity Reaction Status Date / Time Penicillins AdvReac Unknown unknown Verified 08/25/23 05:46 General Stated Complaint: Abd Prob RON: 3 Review of Systems All systems reviewed & are unremarkable except as noted in HPI and below Exam Narrative Exam Narrative: 1.Const: Well-nourished, Well-developed, appearing stated age 2.Eyes: PERRL, no conjunctival injection, and symmetrical lids. 3.ENT: Atraumatic external nose and ears. Moist MM. Neck: Symmetric, trachea midline, No thyromegaly. 4.CVS: +S1/S2, No murmurs or gallops. Peripheral pulses 2+ and equal in all extremities. Brisk capillary refill in all extremities. 5.RESP: Unlabored respiratory effort. Clear to auscultation bilaterally. No wheezes rales or rhonchi 6.GI: Soft, nondistended, mild tenderness in the left lower quadrant. No pain or tenderness in the right lower quadrant. No pain to McBurney's point, negative Cornell sign. No evidence of an acute surgical abdomen. 7.MSK: Normocephalic/Atraumatic, Extremities w/o deformity or ttp No cyanosis or clubbing, Normal movement of all extremities 8.Skin: Warm, Dry. No rashes or lesions. 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 Sensation grossly intact, no focal neurologic deficits. 10.Psych: (AAO) x3. Appropriate mood and affect Course Vital Signs Vital signs: Vital Signs Temperature 36.6 C 08/25/23 05:39 Pulse 89 08/25/23 05:39 Respiratory Rate 16 08/25/23 05:39 Blood Pressure 179/115 H 08/25/23 05:39 Pulse Oximetry 99 08/25/23 05:39 Temperature 36.6 C 08/25/23 05:39 Temperature Source Oral 08/25/23 05:39 Pulse 89 08/25/23 05:39 Respiratory Rate 16 08/25/23 05:39 Respiratory Effort Normal 08/25/23 05:44 Blood Pressure 179/115 H 08/25/23 05:39 Pulse Oximetry 99 08/25/23 05:39 Oxygen Delivery Method Room Air 08/25/23 05:39 Oxygen Flow Rate 0 08/25/23 05:39 Pain Level 8 08/25/23 05:39 Medical Decision Making 33-year-old male with a past medical history of tobacco use, and chronic recurrent diverticulitis who presents today for evaluation of left lower quadrant abdominal pain. Patient states that symptoms began last night at around 9 PM, and then continued throughout the night worsening today. They states that it feels identical to diverticulitis. He denies any new foods. He has had nausea but no vomiting. Pain is achy and located in the left lower abdominal quadrant with slight radiation upward. Patient denies eating any small seeds, greasy foods, or dairy foods. He has not taken any medications for the pain. No other complaints at this time. No other modifying factors. He does admit to mild constipation, denies diarrhea. He does have a scheduled col onoscopy follow-up with surgery in September. Physical exam demonstrates well-appearing male, mild tenderness in the left lower quadrant. No guarding or rebound. No pain at McBurney's point, negative Cornell sign. Symptoms demonstrate a notably nonsurgical abdomen, clinical assessment leads to differential highest for mild diverticulitis. Symptoms appear inconsistent with perforation, he has no tachycardia, fever, chills, or other concerning abnormality in that regard. Symptoms appear inconsistent with urinary tract infection. I had a long discussion with the patient, he has received 6 CAT scans of his abdomen alone over the last few years for evaluation of diverticulitis. Patient states that this feels identical to previous episodes of mild diverticulitis. Clinically the patient demonstrates symptoms consistent with mild diverticulitis. I discussed with the patient options of treatment and NSAID management versus further workup with CT imaging and labs. With out evidence of an acute surgical abdomen or other concerning vital sign abnormalities likelihood of perforated diverticulitis is low. That being said I did make clear to the patient that absolute rule out is performed through CT imaging. Through shared decision-making process, weighing the risks and benefits, and understanding the worst case scenario of what could potentially be missed patient understands and has requested to hold off on CT imaging and labs for the time being. He reassures me that he will return if symptoms worsen. We will prescribe Cipro Flagyl the patient which she has tolerated well in the past for his diverticulitis. Recommend against aggressive exercise while on the Cipro. Will give Toradol shot. Patient will return if symptoms worsen for potential imaging or labs if indicated. Discussed red flags for which to return. I have extensively reviewed the treatment plan and discharge instructions with the patient. I have addressed all patient concerns at this time. The patient was made aware of what symptoms to monitor for that would warrant a return to the emergency department. Discussed the plan with the patient, they demonstrate verbal understanding and agreement with our assessment and plan at this time. The documentation in this chart was dictated using [employer] dictation software. Please excuse any dictation errors. Quality:SDOH Health Related Social Needs: No Data to Display PFSH All Active Problems Diverticulitis (Chronic) Left hamstring muscle strain (Acute) Tear of meniscus of left knee (Acute) Obesity, Class I, BMI 30-34.9 (Chronic) Alteration in speech (Acute) Hypertension (Acute) Discharge planning issues (Acute) DVT prophylaxis (Acute) Tobacco abuse (Acute) Expressive aphasia (Acute) Acute alteration in mental status (Acute) Medical History Cocaine abuse Tobacco abuse Headache Depression Surgical History S/P tonsillectomy and adenoidectomy Family History Mother Diabetes Father Cancer former smoker Paternal Uncle Cancer Social History Smoking/Tobacco Use Status: Current every day Tobacco Type: cigarettes Tobacco: How many years used: 10 Smoking risk assessment performed?: Yes Alcohol Intake: former Drug use: Daily Substance use type: marijuana Counseling given: No Adopted: No Caregiver/Support person: No Foster care: No Household members: significant other and children Housing: house Number of Children: 2 Communication Needs: None Education Level: high school Do you need help understanding health information?: 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 Pets and animals: cat(s), dog(s) and other Details: chickens Sexually active: Yes Do you think of yourself as: straight/heterosexual Current gender identity: male What is your relationship status?: living with partner How often do you talk on the phone with friends or family?: three or more times per week How often do you get together with friends or relatives?: twice per week Do you belong to any clubs or organized social groups?: no Panel score (0-1 are the most socially isolated patients): 2 What type of physical activity do you participate in: walking and other Details: hunting, hiking Frequency: 3-4 times per week Special kavitha needs: No Seatbelt use: always Helmet use: Yes Helmet use: always 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
[2023-08-25] MEDS: Ketorolac 30 MG/ML VIAL IM (05:53)
[2023-08-25] MEDS: Ciprofloxacin 500 MG TAB PO (05:53)
[2023-08-25] MEDS: metroNIDAZOLE 500 MG TAB PO (05:53)
== END 2023-08-25 05:56 | disposition home or self-care (01) ==
LOC: ER 05:57
PROVIDERS: Emergency Provider Student in an Organized Health Care Education/Training Program; PCP Nurse Practitioner
DX: K57.32 Diverticulitis of large intestine without perforation or abscess without bleeding (principal); I10 Essential (primary) hypertension; F17.210 Nicotine dependence, cigarettes, uncomplicated
CPT/HCPCS: 99284; 99283; J1885

== ENCOUNTER 2024-03-01 23:42 | Emergency (ER) | payer MEDICAID, SELFPAY ==
[2024-03-01 23:45] VITALS: BP 183/116; PULSE 86; RESP 18; TEMP 37; O2SAT 98
[2024-03-01 23:49] VITALS: BP 183/116; PULSE 86; RESP 18; TEMP 37; O2SAT 98
--- NOTE | 2024-03-01 23:49 | ED.GENADUL_ITS ---
Discharge Plan Disposition Patient Disposition: Home Condition: Good Discharge Details Clinical Impression: LLQ pain Primary Care Provider: Leora Lea ED Provider: Manjeet Day Meds and New Rx's Prescriptions: New Morphine Ir, 4 Tabs/Btl [Msir, 4 Tabs/Btl] 7.5 mg PO Q4H PRN (Reason: Abdominal Pain) Qty: 4 0RF Ondansetron Odt, 3 Tabs/Btl [Zofran Odt, 3 Tabs/Btl] 4 mg PO Q8H PRN (Reason: Nausea And Vomiting) Qty: 3 0RF metronidazole 500 mg tablet 500 mg PO TID Qty: 20 0RF ciprofloxacin HCl 500 mg tablet 500 mg PO BID Qty: 10 0RF Continued polyethylene glycol 3350 [Miralax] 17 gram/dose powder 17 g PO DAILY Changed ibuprofen 200 mg capsule 600 mg PO Q8H PRNQty: 0 0RF acetaminophen [Tylenol] 325 mg capsule 975 mg PO Q6H PRNQty: 0 0RF Discharge Instructions Instructions: Abdominal Pain, Adult ED Additional Instructions: You were seen for left lower quadrant abdominal pain consistent with your previous episodes of diverticulitis. Laboratory studies are reassuring. A CT scan was obtained given the amount of pain you are having. There is no evidence of perforation or abscess or significant infectious process. Continue to have an edematous gallbladder which you have had on previous scans but no pain in the right upper quadrant. As discussed we will treat you for presumed diverticulitis with oral antibiotics. You have also been given ondansetron for recurrent nausea vomiting and oral morphine for recurrent abdominal pain to take as directed. You will need to berry picker your prescription for antibiotics at the pharmacy. Follow-up with your primary care to discuss outpatient follow-up of gallbladder findings as well as referral to general surgery to discuss options regarding persistent episodes of diverticulitis. Return to ED for significantly high fever, worsening abdominal pain, persistent vomiting, other concerns. Referrals: Leora Lea NP [Primary Care Provider] - [facility] General Mode of arrival: ambulatory . Date/Time Provider Initiated Documentation: 03/01/24 23:49 . Limitations to Documentation: no limitations . Information obtained by: patient, RN notes reviewed and old records reviewed . HPI Narrative: Patient presents to ED with left lower quadrant abdominal pain that has been worsening over 2 days. Tonight after dinner has become much worse. He has nausea but no vomiting. Denies any diarrhea. Denies any urinary symptoms. Denies fever. Does have prior history of diverticulitis. Had colonoscopy in the recent past. Pain he is having now is similar to previous episodes. Had been taking ibuprofen and acetaminophen during the day so he could work. Denies any chest pain, cough, shortness of breath. Denies any previous surgeries. Related Data Home Medications ?Medication ?Instructions ?Recorded ?Confirmed polyethylene glycol 3350 17 17 g PO DAILY 08/25/23 03/01/24 gram/dose oral powder (Miralax) MORPHine IR, 4 tabs/btl [MSIR, 4 7.5 mg PO Q4H PRN Abdominal Pain 03/02/24 tabs/btl] #4 tabs Ondansetron ODT, 3 tabs/btl 4 mg PO Q8H PRN Nausea And 03/02/24 [Zofran ODT, 3 tabs/btl] Vomiting #3 caps acetaminophen 325 mg capsule 975 mg (3 x 325 mg) PO Q6H PRN #0 03/02/24 03/01/24 (Tylenol) caps ciprofloxacin HCl 500 mg tablet 500 mg PO BID #10 tabs 03/02/24 ibuprofen 200 mg capsule 600 mg (3 x 200 mg) PO Q8H PRN #0 03/02/24 03/01/24 caps metronidazole 500 mg tablet 500 mg PO TID #20 tabs 03/02/24 Previous Rx's ?Medication ?Instructions ?Recorded MORPHine IR, 4 tabs/btl [MSIR, 4 7.5 mg PO Q4H PRN Abdominal Pain 03/02/24 tabs/btl] #4 tabs Ondansetron ODT, 3 tabs/btl 4 mg PO Q8H PRN Nausea And 03/02/24 [Zofran ODT, 3 tabs/btl] Vomiting #3 caps acetaminophen 325 mg capsule 975 mg (3 x 325 mg) PO Q6H PRN #0 03/02/24 (Tylenol) caps ciprofloxacin HCl 500 mg tablet 500 mg PO BID #10 tabs 03/02/24 ibuprofen 200 mg capsule 600 mg (3 x 200 mg) PO Q8H PRN #0 03/02/24 caps metronidazole 500 mg tablet 500 mg PO TID #20 tabs 03/02/24 Allergies Allergy/AdvReac Type Severity Reaction Status Date / Time Penicillins AdvReac Unknown unknown Verified 03/01/24 23:53 General Stated Complaint: Abd Prob RON: 3 Review of Systems Narrative: Per HPI Exam Narrative Exam Narrative: Const: WDWN male in NAD. VS per triage. HEENT: NC/AT. Normal facial exam. Neck: Supple. Trachea midline. Lungs: Normal respiratory effort. Lungs are clear. Cor: RRR without murmur. Good radial pulses. GI: Soft/ND. Tender in the LLQ without guarding, rebound, peritoneal signs. Neuro: A+O x 3. Normal speech, mentation, gait. Cranial nerves II - XII grossly intact. No gross motor or sensory deficit. Ext: No C/C/E. Course Vital Signs Vital signs: Vital Signs Temperature 98.6 F 03/01/24 23:45 Pulse 86 03/01/24 23:45 Respiratory Rate 18 03/01/24 23:45 Blood Pressure 183/116 H 03/01/24 23:45 Pulse Oximetry 98 03/01/24 23:45 Temperature 98.6 F 03/01/24 23:45 Temperature Source Oral 03/01/24 23:45 Pulse 86 03/01/24 23:45 Respiratory Rate 18 03/01/24 23:45 Blood Pressure 183/116 H 03/01/24 23:45 Blood Pressure Position Sitting 03/01/24 23:45 Pulse Oximetry 98 03/01/24 23:45 Oxygen Delivery Method Room Air 03/01/24 23:45 Oxygen Flow Rate 0 03/01/24 23:45 Pain Level 8 03/01/24 23:45 Medical Decision Making Patient presenting to ED with left lower quadrant abdominal pain and tenderness. He has a prior history of diverticulitis. Per our records he has had [address] scans in the last 2 years. He reports that pain he is having now is similar to previous episodes. He is not febrile. He looks well otherwise. He is not guarding. Will place IV to give dose of morphine and ondansetron. Check laboratory studies. Hold off on imaging given multiple previous scans and reassuring exam with decent response to oral antibiotics in the past. Patient's white count is normal. Chemistries, liver function, lipase are all normal. Complains IV morphine still has not really helped. Given oral MS IR as well as Cipro and Flagyl which he tolerates. If no improvement in pain which he is rating an 8 or 9 after oral morphine will consider imaging. Patient continues to complain of significant pain even after oral morphine. CT scan with contrast ordered. Urinalysis completely negative. Repeat dose of IV morphine given. CT scan per preliminary radiology read shows no evidence of acute diverticulitis. He does have some pericholecystic edema without evidence of stones. He has had this on previous CAT scans. He is not having right upper quadrant pain or tenderness. We have discussed treatment with antibiotics for one week given his prior history. There is no evidence of abscess or perforation which is what I was concerned for. I have also asked him to discuss referral to general surgery regarding possible surgical management of diverticu litis given his multiple episodes of presumed infections. He should also likely have a right upper quadrant ultrasound or MRCP as an outpatient to be sure there is no pathology in regards to this intermittent gallbladder finding. Patient is comfortable with this plan. He will be discharged home with prescriptions for Cipro and Flagyl as well as to go bottles of ondansetron and oral morphine. C ontact PCP for follow-up as discussed above. Return precautions provided. Medical Records Medical records reviewed: Yes I reviewed the patient's medical records. Medical records narrative: ED visits, radiology exams, colonoscopy report. Lab Data Lab results reviewed: Yes I reviewed the patient's lab results. Lab results narrative: See [facility] All Active Problems (Updated 03/02/24 @ 02:59 by Mnajeet Day MD) LLQ pain (Acute) Tubular adenoma of colon (Acute 09/15/23) transverse colon Tear of meniscus of left knee (Acute) Obesity, Class I, BMI 30-34.9 (Chronic) Hypertension (Acute) Tobacco abuse (Acute) Medical History Adenoma of colon (~09/2023) H/O constipation Colon, diverticulosis (~09/2023) Depression Surgical History H/O colonoscopy with polypectomy (09/15/23) [facility] Dr Yanez S/P tonsillectomy and adenoidectomy Family History Mother Diabetes Father Cancer former smoker Paternal Uncle Cancer Social History Smoking/Tobacco Use Status: Current every day Tobacco Type: cigarettes Tobacco: How many years used: 10 Smoking risk assessment performed?: Yes Alcohol Intake: former Drug use: Daily Substance use type: marijuana Counseling given: No Adopted: No Caregiver/Support person: No Foster care: No Household members: significant other and children Housing: house Number of Children: 2 Communication Needs: None Education Level: high school Do you need help understanding health information?: 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 Pets and animals: cat(s), dog(s) and other Details: chickens Sexually active: Yes Do you think of yourself as: straight/heterosexual Current gender identity: male What is your relationship status?: living with partner How often do you talk on the phone with friends or family?: three or more times per week How often do you get together with friends or relatives?: twice per week Do you belong to any clubs or organized social groups?: no Panel score (0-1 are the most socially isolated patients): 2 What type of physical activity do you participate in: walking and other Details: hunting, hiking Frequency: 3-4 times per week Special kavitha needs: No Seatbelt use: always Helmet use: Yes Helmet use: always Drive 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 w/intox 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
[2024-03-02] MEDS: metroNIDAZOLE 500 MG TAB PO (00:11)
[2024-03-02] MEDS: Ciprofloxacin 500 MG TAB PO (00:11)
[2024-03-02] MEDS: Ondansetron 4 MG/2 ML VIAL IVP (00:11)
[2024-03-02] MEDS: MORPHine 4 MG/ML SYR IVP (00:11)
[2024-03-02] MEDS: Normal Saline Flush 10 ML SYR IVP ×2 (00:12→01:23)
[2024-03-02 00:16] LABS: Abs Immature Grans 0.04 10^3/uL (0.0-0.06); Absolute Basophil Count 0.03 10^3/uL (0.0-0.2); Absolute Eosinophil Count 0.17 10^3/uL (0.0-0.7); Absolute Lymphocyte Count 3.05 10^3/uL (1.2-3.4); Absolute Neutrophil Count 4.53 10^3/uL (1.2-6.7); Basophils % 0.3 %; Eosinophils % 1.9 %; HCT 46.6 % (40.0-50.0); HGB 15.6 g/dL (13.5-17.5); Immature Grans % 0.5 %; MCH 28.5 pg (27.0-33.0); MCHC 33.5 % (32.0-36.0); MCV 85 fL (80-95); MPV 9.1 fL (8.0-11.0); Monocytes % 10.3 %; Platelet Count 296 10^3/uL (130-400); RBC 5.48 10^6/uL (4.36-5.78); RDW-SD 40.4 fL; WBC 8.72 10^3/uL (4.4-10.8)
[2024-03-02 00:31] LABS: ALT 56 U/L (16-63); AST 21 U/L (15-37); Alkaline Phosphatase 76 U/L (46-116); Anion Gap 5.6 mmol/L (3-11); BUN 13 mg/dL (7-18); CO2 30.4 mmol/L (21.0-32.0); CREATININE 0.9 mg/dL (0.70-1.30); Chloride 108 mmol/L (98-107); Estimated GFR 115.65 (mL/min/1.73m2); Glucose 114 mg/dL (74-106); Lipase 67 U/L (16-77); Sodium 144 mmol/L (136-145); Total Protein 7.4 g/dL (6.4-8.2)
[2024-03-02 00:36] LABS: Calcium 8.9 mg/dL (8.5-10.1)
[2024-03-02] MEDS: MORPHine IR 15 MG TAB 7.5 MG PO (00:43)
--- NOTE | 2024-03-02 01:00 | DI.CT_ITS ---
Exam(s) CT ABDOMEN PELVIS W EXAM: CT ABDOMEN PELVIS W CLINICAL HISTORY: LLQ pain/tenderness. TECHNIQUE: Imaging Protocol: Axial computed tomography images with coronal and sagittal reformatted images were created and reviewed CONTRAST MATERIAL: Intravenous: Omnipaque 350 Contrast volume:100 ml Oral: / no COMPARISON: CT CT ABDOMEN PELVIS W from 06/22/2023 FINDINGS: ABDOMEN and PELVIS: Lung Bases: No acute findings. Liver: Normal density. No suspicious mass. Gallbladder and biliary tract: There is a question of mild gallbladder wall thickening. No radiodens e calculus. No biliary dilation. Pancreas: Normal density. No abnormal calcifications or inflammatory process. No evidence of mass. Spleen: Normal. Kidneys: Normal size, contour and axis. No radiodense stones. No obstructive uropathy. No suspicious masses seen. Adrenal glands: No masses seen. Vasculature: Abdominal aorta non-dilated. Soft tissues: Unremarkable. Bladder: No gross wall thickening. No calculi.No focal mass. Bowel: No obstruction. No bowel wall thickening. Diverticulosis of the lower descending and sigmoi d colon. No evidence of diverticulitis. Appendix normal. Peritoneal cavity: No ascites. No focal collection. No mesenteric inflammatory response. Bones: Unremarkable for age. Reproductive organs: Unremarkable. Lymph nodes: No pathologically enlarged lymph nodes. IMPRESSION:: Diverticulosis without evidence of diverticulitis. Mild gallbladder wall thickening. No visible stones. Ultrasound may be performed for further evalua tion. RADIATION DOSE DELIVERED: 527.44mGy.cm Total DLP DATA REPOSITORY: All CT scans at this facility are submitted to the National Radiology Data Registry (NRDR) Dose Index Registry (DIR) with the [employer] (ACR). RADIATION OPTIMIZATION: All CT scans at this facility use at least one of these dose optimization te chniques: automated exposure control; mA and/or kV adjustment per patient size (includes targeted exa ms where dose is matched to clinical indication); or iterative reconstruction.
[2024-03-02] MEDS: MORPHine 10 MG/ML VIAL 4 MG IVP (01:16)
[2024-03-02 01:23] LABS: Bilirubin Negative (Negative); Blood Negative (Negative); Clarity Clear (Clear); Glucose Negative (Negative); Ketones Negative (Negative); Leukocyte Esterase Negative (Negative); Nitrite Negative (Negative); Urobilinogen 0.2 mg/dL (Up to 0.2)
[2024-03-02] MEDS: Normal Saline - Diluent 50 ML VIAL IJ (01:23)
[2024-03-02] MEDS: Omnipaque 350 MG/ML 100 ML BTL IJ (01:23)
[2024-03-02 01:54] VITALS: BP 140/94; PULSE 71; RESP 16; TEMP 37; O2SAT 97
--- NOTE | 2024-03-02 02:34 | DI.VRAD_ITS ---
PROCEDURE INFORMATION: Exam: CT Abdomen And Pelvis With Contrast Exam date and time: 03/02/2024 1:25 AM Age: 33 years old Clinical indication: Abdominal pain; Localized; Left lower quadrant (llq); Patient HX: Llq pain and tenderness TECHNIQUE: Imaging protocol: Computed tomography of the abdomen and pelvis with contrast. Radiation optimization: All CT scans at this facility use at least one of these dose optimization techniques: automated exposure control; mA and/or kV adjustment per patient size (includes targeted exams where dose is matched to clinical indication); or iterative reconstruction. Contrast material: OMNIPAQUE 350; Contrast volume: 100 ml; Contrast route: INTRAVENOUS (IV); COMPARISON: CT ABDOMEN PELVIS W 06/22/2023 4:15 AM FINDINGS: Liver: Normal. No mass. Gallbladder and biliary ducts: There is pericholecystic edema identified. In the absence of radiopaque gallstones this finding could represent changes of acalculous cholecystitis. Ultrasound examination of the gallbladder is recommended for further evaluation. Pancreas: Normal. No ductal dilation. Spleen: Normal. No splenomegaly. Adrenal glands: Normal. No mass. Kidneys and ureters: Normal. No hydronephrosis. Stomach and bowel: Sigmoid diverticulosis is noted. There is no CT evidence for diverticulitis. Appendix: No evidence of appendicitis. Intraperitoneal space: Unremarkable. No free air. No significant fluid collection. Vasculature: Unremarkable. No abdominal aortic aneurysm. Lymph nodes: Unremarkable. No enlarged lymph nodes. Urinary bladder: Unremarkable as visualized. Reproductive: Prostatic calcifications are noted. Bones/joints: Unremarkable. No acute fracture. Soft tissues: Unremarkable. IMPRESSION: 1. Pericholecystic edema for which correlation with ultrasound examination of the gallbladder is recommended. 2. Sigmoid diverticulosis. 3. Prominent prostate with prostatic calcifications. Dictated and Authenticated by: Dario Recinos MD. Ordering:BHUPINDER Burroughs MD
[2024-03-02 03:10] VITALS: BP 129/78; PULSE 64; RESP 14; TEMP 36.6; O2SAT 100
[2024-03-02] MEDS: MORPHine IR 15 MG TAB, 4 TABS/BTL PO (03:13)
[2024-03-02] MEDS: Ondansetron O.D.T. 4 MG TABEF, 3 TABS/BTL PO (03:14)
[2024-03-02 03:15] VITALS: BP 129/78; PULSE 64; RESP 14; TEMP 36.6; O2SAT 100
== END 2024-03-02 03:15 | disposition home or self-care (01) ==
PROVIDERS: Emergency Provider Emergency Medicine; PCP Nurse Practitioner
DX: R10.32 Left lower quadrant pain (principal); F17.210 Nicotine dependence, cigarettes, uncomplicated
CPT/HCPCS: 36415; 80053; 83690; 96374; 96375; 96376; 99285; 74177; 81003; 85025; 99284; J2270; J2405; J3490

== ENCOUNTER 2024-03-07 21:19 | Emergency (ER) | payer MEDICAID, SELFPAY ==
[2024-03-07] VITALS (9 sets, daily range): BP systolic 128–183; BP diastolic 72–106; PULSE 72–101; RESP 16; TEMP 36; O2SAT 94–98
[2024-03-07] MEDS: FAMOTIDINE 20 MG in Normal Saline 100 ML 400 MG IVPB (21:35)
[2024-03-07] MEDS: Ondansetron 4 MG/2 ML VIAL IVP (21:35)
--- NOTE | 2024-03-07 21:37 | ED.GENADUL_ITS ---
Discharge Plan Disposition Patient Disposition: Home Discharge Details Clinical Impression: Abdominal pain Primary Care Provider: Leora Lea ED Provider: Sofia Mullen Home Meds and New Rx's Prescriptions: New dicyclomine 10 mg capsule 10 mg PO TID PRN (Reason: abdominal pain) Qty: 30 0RF famotidine [Pepcid] 20 mg tablet 20 mg PO BID Qty: 60 0RF metoclopramide HCl [Reglan] 10 mg tablet 10 mg PO QAC Qty: 30 0RF Rx Instructions: administer 30 minutes before meals No Action polyethylene glycol 3350 [Miralax] 17 gram/dose powder 17 g PO DAILY Morphine Ir, 4 Tabs/Btl [Msir, 4 Tabs/Btl] 7.5 mg PO Q4H PRN (Reason: Abdominal Pain) Qty: 4 0RF Ondansetron Odt, 3 Tabs/Btl [Zofran Odt, 3 Tabs/Btl] 4 mg PO Q8H PRN (Reason: Nausea And Vomiting) Qty: 3 0RF metronidazole 500 mg tablet 500 mg PO TID Qty: 20 0RF ciprofloxacin HCl 500 mg tablet 500 mg PO BID Qty: 10 0RF ibuprofen 200 mg capsule 600 mg PO Q8H PRNQty: 0 0RF acetaminophen [Tylenol] 325 mg capsule 975 mg PO Q6H PRNQty: 0 0RF Discharge Instructions Instructions: Abdominal Pain, Adult ED Additional Instructions: * continue medications as prescribed * your labs today looked much better * start clear liquid diet and continue this until all of your symptoms have resolved * take tylenol as needed for pain, zofran as needed for nausea * additional medications for abdominal pain sent to pharmacy to start tomorrow. * follow up with surgery clinic to discuss need for repeat colonoscopy HPI General Date/Time Provider Initiated Documentation: 03/07/24 21:19 . Limitations to Documentation: no limitations . Information obtained by: patient and old records reviewed . HPI Narrative: 33-year-old gentleman with past medical history of hypertension, tobacco abuse, diverticulitis presents for evaluation of left lower quadrant abdominal pain. His symptoms started a few days ago and he was evaluated in the emergency department on March 02. He was prescribed antibiotics for diverticulitis and discharged with Zofran and morphine for pain control. He reports that he has taken all the morphine that was provided. He reports that he initially felt better, but his symptoms have returned. He states that now his pain is about as bad as it was on his initial presentation. Denies any fever. He reports that he is forcing himself to vomit daily by sticking his finger down his throat. He states that he has such severe nausea that he must do this. It does seem to help his pain slightly. He denies any watery stools or bloody stools. Denies any testicular pain, urinary frequency or urgency. Related Data Home Medications ?Medication ?Instructions ?Recorded ?Confirmed polyethylene glycol 3350 17 17 g PO DAILY 08/25/23 03/07/24 gram/dose oral powder (Miralax) MORPHine IR, 4 tabs/btl [MSIR, 4 7.5 mg PO Q4H PRN Abdominal Pain 03/02/24 03/07/24 tabs/btl] #4 tabs Ondansetron ODT, 3 tabs/btl 4 mg PO Q8H PRN Nausea And 03/02/24 03/07/24 [Zofran ODT, 3 tabs/btl] Vomiting #3 caps acetaminophen 325 mg capsule 975 mg (3 x 325 mg) PO Q6H PRN #0 03/02/24 03/07/24 (Tylenol) caps ciprofloxacin HCl 500 mg tablet 500 mg PO BID #10 tabs 03/02/24 03/07/24 ibuprofen 200 mg capsule 600 mg (3 x 200 mg) PO Q8H PRN #0 03/02/24 03/07/24 caps metronidazole 500 mg tablet 500 mg PO TID #20 tabs 03/02/24 03/07/24 dicyclomine 10 mg capsule 10 mg PO TID PRN abdominal pain 03/07/24 #30 caps famotidine 20 mg tablet (Pepcid) 20 mg PO BID #60 tabs 03/07/24 metoclopramide HCl 10 mg tablet 10 mg PO QAC #30 tabs 03/07/24 (Reglan) Previous Rx's ?Medication ?Instructions ?Recorded MORPHine IR, 4 tabs/btl [MSIR, 4 7.5 mg PO Q4H PRN Abdominal Pain 03/02/24 tabs/btl] #4 tabs Ondansetron ODT, 3 tabs/btl 4 mg PO Q8H PRN Nausea And 03/02/24 [Zofran ODT, 3 tabs/btl] Vomiting #3 caps acetaminophen 325 mg capsule 975 mg (3 x 325 mg) PO Q6H PRN #0 03/02/24 (Tylenol) caps ciprofloxacin HCl 500 mg tablet 500 mg PO BID #10 tabs 03/02/24 ibuprofen 200 mg capsule 600 mg (3 x 200 mg) PO Q8H PRN #0 03/02/24 caps metronidazole 500 mg tablet 500 mg PO TID #20 tabs 03/02/24 dicyclomine 10 mg capsule 10 mg PO TID PRN abdominal pain 03/07/24 #30 caps famotidine 20 mg tablet (Pepcid) 20 mg PO BID #60 tabs 03/07/24 metoclopramide HCl 10 mg tablet 10 mg PO QAC #30 tabs 03/07/24 (Reglan) Allergies Allergy/AdvReac Type Severity Reaction Status Date / Time Penicillins AdvReac Unknown unknown Verified 03/01/24 23:53 General Stated Complaint: Abd Prob RON: 3 Exam Narrative Exam Narrative: Review of Systems: All systems reviewed & are unremarkable except as noted in HPI and below Well-developed, no acute distress afebrile NCAT moist mucus membranes RRR Unlabored respiratory effort, CTAB Nondistended abdomen , soft, LLQ tenderness Course Vital Signs Vital signs: Vital Signs Temperature 36.0 C L 03/07/24 21:21 Pulse 89 03/07/24 21:21 Respiratory Rate 16 03/07/24 21:21 Blood Pressure 183/88 H 03/07/24 21:21 Pulse Oximetry 98 03/07/24 21:21 Temperature 36.0 C L 03/07/24 21:21 Temperature Source Temporal Artery Scan 03/07/24 21:21 Pulse 89 03/07/24 21:21 Respiratory Rate 16 03/07/24 21:21 Respiratory Effort Normal, Non-Labored 03/07/24 21:26 Blood Pressure 183/88 H 03/07/24 21:21 Blood Pressure Position Sitting 03/07/24 21:21 Pulse Oximetry 98 03/07/24 21:21 Oxygen Delivery Method Room Air 03/07/24 21:21 Oxygen Flow Rate 0 03/07/24 21:21 Pain Level 8 03/07/24 21:28 Medical Decision Making Emergent evaluation of left lower quadrant abdominal pain. Patient presented to the emergency department a few days ago with similar pain and had a diagnosis of diverticulitis. He was discharged on antibiotics as well as pain and nausea medication. He is almost completed the course of antibiotics and has had some improvement in his symptoms, but now return of symptoms. He is forcing himself to vomit, but not spontaneously vomiting. He is not having any fever. Does not feel like he has had an increase in stool output either. On examination he does have some mild left lower quadrant tenderness. Initial differential includes persistent diverticulitis, consider perforation or abscess. But this seems unlikely without fever or other vital sign derangement or significant peritoneal signs. Plan for repeat lab work, if there is any significant abnormalities or increase in white blood cell count or inflammatory markers, would consider repeat CT scan. However I did discuss with the patient the risks of repeated radiation exposure and he concurs with delaying. He is also orally hydrating well and there is no clinical signs of dehydration and given the IV fluid shortage at this time, will not give IV fluids. 1000 Patient's lab work reviewed. White blood cell count is normal at 5.5 and has decreased from his last visit. There is no shift. ESR is not elevated. CRP is slightly elevated at 4. The patient reports that he has had no relief of pain despite the morphine. Given these reassuring lab findings, I do not feel that additional narcotics would be beneficial to the patient. Will give droperidol and Bentyl to see if there is some improvement in his symptoms 1055 patient's symptoms have resolved. tolerating PO. will discharge with bentyl and reglan and pepcid. continue zofran as needed. advised against additional narcotics. recommend clear liquid diet and strict return precautions advised. Quality:[facility] Health Related Social Needs: No Data to Display PFSH All Active Problems (Updated 03/07/24 @ 22:52 by Sofia Mullen MD) Abdominal pain (Acute) LLQ pain (Acute) Tubular adenoma of colon (Acute 09/15/23) transverse colon Tear of meniscus of left knee (Acute) Obesity, Class I, BMI 30-34.9 (Chronic) Hypertension (Acute) Tobacco abuse (Acute) Medical History Adenoma of colon (~09/2023) H/O constipation Colon, diverticulosis (~09/2023) Depression Surgical History H/O colonoscopy with polypectomy (09/15/23) [facility] Dr Yanez S/P tonsillectomy and adenoidectomy Family History Mother Diabetes Father Cancer former smoker Paternal Uncle Cancer Social History Smoking/Tobacco Use Status: Current every day Tobacco Type: cigarettes Tobacco: How many years used: 10 Smoking risk assessment performed?: Yes Alcohol Intake: former Drug use: Daily Substance use type: marijuana Counseling given: No Adopted: No Caregiver/Support person: No Foster care: No Household members: significant other and children Housing: house Number of Children: 2 Communication Needs: None Education Level: high school Do you need help understanding health information?: 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 Pets and animals: cat(s), dog(s) and other Details: chickens Sexually active: Yes Do you think of yourself as: straight/heterosexual Current gender identity: male What is your relationship status?: living with partner How often do you talk on the phone with friends or family?: three or more times per week How often do you get together with friends or relatives?: twice per week Do you belong to any clubs or organized social groups?: no Panel score (0-1 are the most socially isolated patients): 2 What type of physical activity do you participate in: walking and other Details: hunting, hiking Frequency: 3-4 times per week Special kavitha needs: No Seatbelt use: always Helmet use: Yes Helmet use: always Drive 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 w/intox bicycle taxi 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
[2024-03-07 21:38] LABS: Abs Immature Grans 0.02 10^3/uL (0.0-0.06); Absolute Basophil Count 0.03 10^3/uL (0.0-0.2); Absolute Eosinophil Count 0.06 10^3/uL (0.0-0.7); Absolute Lymphocyte Count 1.36 10^3/uL (1.2-3.4); Absolute Monocyte Count 0.86 10^3/uL (0.1-0.8); Absolute Neutrophil Count 3.17 10^3/uL (1.2-6.7); Basophils % 0.5 %; Eosinophils % 1.1 %; HCT 47.5 % (40.0-50.0); HGB 16.4 g/dL (13.5-17.5); Immature Grans % 0.4 %; Lymphocytes % 24.7 %; MCH 28.7 pg (27.0-33.0); MCHC 34.5 % (32.0-36.0); MCV 83 fL (80-95); MPV 9.1 fL (8.0-11.0); Monocytes % 15.6 %; Neutrophils % 57.7 %; Platelet Count 283 10^3/uL (130-400); RBC 5.71 10^6/uL (4.36-5.78); RDW 12.9 % (11.8-14.1)
[2024-03-07] MEDS: MORPHine 10 MG/ML VIAL 6 MG IVP (21:38)
[2024-03-07 21:39] LABS: ESR 4 mm/hr (0-15)
[2024-03-07 21:56] LABS: C-Reactive Protein 4.43 mg/dL (<or=0.5)
[2024-03-07] MEDS: Droperidol 5 MG/2 ML VIAL 2.5 MG IVP (22:04)
[2024-03-07] MEDS: Dicyclomine 10 MG CAP PO (22:04)
[2024-03-07 22:12] LABS: ALT 72 U/L (16-63); AST 33 U/L (15-37); Albumin 4.1 g/dL (3.4-5.0); Alkaline Phosphatase 86 U/L (46-116); BUN 19 mg/dL (7-18); Bilirubin, Total 0.42 mg/dL (0.2-1.0); CO2 31.4 mmol/L (21.0-32.0); CREATININE 1.1 mg/dL (0.70-1.30); Glucose 150 mg/dL (74-106); Lipase 76 U/L (16-77); Total Protein 7.9 g/dL (6.4-8.2)
[2024-03-07 22:17] LABS: Anion Gap 9.6 mmol/L (3-11); Calcium 9.3 mg/dL (8.5-10.1); Chloride 101 mmol/L (98-107); Potassium 3.7 mmol/L (3.5-5.1); Sodium 142 mmol/L (136-145)
== END 2024-03-07 23:12 | disposition home or self-care (01) ==
PROVIDERS: Emergency Provider Emergency Medicine; PCP Nurse Practitioner
DX: R10.32 Left lower quadrant pain (principal); R11.2 Nausea with vomiting, unspecified; I10 Essential (primary) hypertension; F17.210 Nicotine dependence, cigarettes, uncomplicated
CPT/HCPCS: 36415; 80053; 83690; 85652; 96365; 96375; 99284; 85025; 86140; 99283; J1790; J2270; J2405

== ENCOUNTER 2024-03-20 23:19 | Emergency (ER) | payer MEDICAID, SELFPAY ==
[2024-03-20 23:22] VITALS: BP 142/98; PULSE 91; RESP 16; TEMP 36.8; O2SAT 100
--- NOTE | 2024-03-20 23:48 | W.ED.GENAD ---
Discharge Plan Disposition Patient Disposition: Eloped Condition: Stable Discharge Details Chief Complaint: Abd Prob Clinical Impression: LLQ pain Primary Care Provider: Leora Lea ED Provider: Harika Le Home Meds and New Rx's Prescriptions: Continued dicyclomine 10 mg capsule 10 mg PO TID PRN (Reason: abdominal pain) Qty: 30 0RF metoclopramide HCl [Reglan] 10 mg tablet 10 mg PO QAC Qty: 30 0RF Rx Instructions: administer 30 minutes before meals polyethylene glycol 3350 [Miralax] 17 gram/dose powder 17 g PO DAILY ibuprofen 200 mg capsule 600 mg PO Q8H PRNQty: 0 0RF acetaminophen [Tylenol] 325 mg capsule 975 mg PO Q6H PRNQty: 0 0RF Linzess 145 mcg capsule 145 mcg PO DAILY Patient Comments: TAKE ONE CAPSULE BY MOUTH EVERY DAY Discontinued ondansetron HCl 4 mg tablet 4 mg PO Q8H PRN (Reason: nausea and vomiting) Qty: 30 0RF morphine 15 mg tablet 7.5 mg PO BID MDD 15mg PRN (Reason: pain) Qty: 3 0RF metronidazole 500 mg tablet 500 mg PO TID Qty: 20 0RF Discharge Instructions Instructions: Abdominal Pain, Adult ED Additional Instructions: Call your primary care doctor on Friday to schedule an appointment for within the next 72 hours to followup on your visit today. Call your GI doctor on Friday to let them know you were in the emergency department and to schedule a followup appointment. Return to the emergency department for new or worsening symptoms including new/different/worse pain, fever, inability to keep down fluids, or if you have any other concerns. Referrals: Leora Lea, DINAH [Primary Care Provider] - [facility] General Mode of arrival: ambulatory. Date/Time Provider Initiated Documentation: 03/20/24 23:29. Limitations to Documentation: no limitations. Information obtained by: patient and old records reviewed (Clinic visit 03/15/24, ED visits 03/07/24 & 03/01/24). HPI Narrative: 33yo M with hx HTN, diverticulosis/itis, IBS, presenting with chronic LLQ abdominal pain. Pain is typical of his usual pain and unchanged in location, character, or severity. No nausea, vomiting, constipation, or diarrhea. Last BM today, formed/soft/normal/nonbloody. Saw GI earlier in the week and was started on Linzess (1st dose today), has been taking tylenol as well as PO morphine at home prescribed by his PCP but took his last dose this evening. Requests morphine here. Otherwise in his usual state of health with no fevers, chill, rash, dysuria, hematuria, or other concerns. Related Data Home Medications ?Medication ?Instructions ?Recorded ?Confirmed polyethylene glycol 3350 17 17 g PO DAILY 08/25/23 03/20/24 gram/dose oral powder (Miralax) acetaminophen 325 mg capsule 975 mg (3 x 325 mg) PO Q6H PRN #0 03/02/24 03/20/24 (Tylenol) caps ibuprofen 200 mg capsule 600 mg (3 x 200 mg) PO Q8H PRN #0 03/02/24 03/20/24 caps dicyclomine 10 mg capsule 10 mg PO TID PRN abdominal pain 03/07/24 03/20/24 #30 caps metoclopramide HCl 10 mg tablet 10 mg PO QAC #30 tabs 03/07/24 03/20/24 (Reglan) linaclotide 145 mcg capsule 145 mcg PO DAILY 03/20/24 03/20/24 (Linzess) Previous Rx's ?Medication ?Instructions ?Recorded acetaminophen 325 mg capsule 975 mg (3 x 325 mg) PO Q6H PRN #0 03/02/24 (Tylenol) caps ibuprofen 200 mg capsule 600 mg (3 x 200 mg) PO Q8H PRN #0 03/02/24 caps dicyclomine 10 mg capsule 10 mg PO TID PRN abdominal pain 03/07/24 #30 caps metoclopramide HCl 10 mg tablet 10 mg PO QAC #30 tabs 03/07/24 (Reglan) Allergies Allergy/AdvReac Type Severity Reaction Status Date / Time Penicillins AdvReac Unknown unknown Verified 03/20/24 23:31 General Stated Complaint: Abd Prob RON: 5 Review of Systems Narrative: see HPI Exam Narrative Exam Narrative: General: Alert, well appearing, well nourished, in no acute distress. Head: Normocephalic, atraumatic Neck: Trachea midline, ?Neck supple. ENT: ?MMM.? Cardiac: ?RRR, no murmurs appreciated Resp: No respiratory distress. CTAB. Abd: ?Soft, non-distended, LLQ mildly TTP with no rebound or guarding. : ?No suprapubic tenderness. No CVA tenderness. Extremities: ?No deformities.? No peripheral edema. Neurologic: GCS 15. ? Moves all extremities freely against gravity Course Vital Signs Vital signs: Vital Signs Temperature 36.8 C 03/20/24 23:22 Pulse 91 H 03/20/24 23:22 Respiratory Rate 100 H 03/20/24 23:22 Blood Pressure 142/98 H 03/20/24 23:22 Pulse Oximetry 100 03/20/24 23:22 Temperature 36.8 C 03/20/24 23:22 Temperature Source Temporal Artery Scan 03/20/24 23:22 Pulse 91 H 03/20/24 23:22 Respiratory Rate 100 H 03/20/24 23:22 Respiratory Effort Normal 03/20/24 23:29 Blood Pressure 142/98 H 03/20/24 23:22 Pulse Oximetry 100 03/20/24 23:22 Oxygen Delivery Method Room Air 03/20/24 23:22 Oxygen Flow Rate 0 03/20/24 23:22 Pain Level 8 03/20/24 23:22 Medical Decision Making 33yo M with hx diverticulosis/itis, IBS, presenting with chronic LLQ abdominal pain. Reports he has had this pain for 'years' and today it is typical of his usual pain and unchanged in location, character, or severity. No associated symptoms, systemically well. Vital signs reassuring on arrival (HR slightly elevated at 91 after ambulating into triage, will repeat at rest). Mild LLQ tenderness on exam with no peritoneal signs. Saw GI earlier this week and started Linzess, reports having recent colonoscopy. As he is systemically well and has had no change in his chronic symptoms and no new symptoms, I do not feel a CT scan or labwork is indicated; pt agrees with this. He requests morphine which given the chronic nature of his pain I do not feel is beneficial; I offered droperidol, toradol, and bentyl which patient did accept. On reassessment he reports abdominal pain is unchanged, feels anxious after the droperidol. Requests something for anxiety, hydroxizine was ordered. Pt requested valium but did accept hydroxyzine. Repeat VS reassuring, HR normalized. Subsequently notified tech that he wanted to leave, eloped from the department without physician re-evaluation. Followup instructions were mailed to the patient. Quality:SDOH Health Related Social Needs: No Data to Display PFSH All Active Problems (Updated 03/21/24 @ 00:17 by Harika Le MD) Abdominal pain (Acute) LLQ pain (Acute) Tubular adenoma of colon (Acute 09/15/23) transverse colon Tear of meniscus of left knee (Acute) Obesity, Class I, BMI 30-34.9 (Chronic) Hypertension (Acute) Tobacco abuse (Acute) Medical History Adenoma of colon (~09/2023) H/O constipation Colon, diverticulosis (~09/2023) Depression Surgical History H/O colonoscopy with polypectomy (09/15/23) [facility] Dr Yanez S/P tonsillectomy and adenoidectomy Family History Mother Diabetes Father Cancer former smoker Paternal Uncle Cancer Social History Smoking/Tobacco Use Status: Current every day Tobacco Type: cigarettes Tobacco: How many years used: 10 Smoking risk assessment performed?: Yes Alcohol Intake: former Drug use: Daily Substance use type: marijuana Counseling given: No Adopted: No Caregiver/Support person: No Foster care: No Household members: significant other and children Housing: house Number of Children: 2 Communication Needs: None Education Level: high school Do you need help understanding health information?: 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 Pets and animals: cat(s), dog(s) and other Details: chickens Sexually active: Yes Do you think of yourself as: straight/heterosexual Current gender identity: male What is your relationship status?: living with partner How often do you talk on the phone with friends or family?: three or more times per week How often do you get together with friends or relatives?: twice per week Do you belong to any clubs or organized social groups?: no Panel score (0-1 are the most socially isolated patients): 2 What type of physical activity do you participate in: walking and other Details: hunting, hiking Frequency: 3-4 times per week Special kavitha needs: No Seatbelt use: always Helmet use: Yes Helmet use: always 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
[2024-03-21] MEDS: Dicyclomine 20 MG TAB PO (00:02)
[2024-03-21] MEDS: Ketorolac 15 MG/ML VIAL IM (00:02)
[2024-03-21] MEDS: Droperidol 5 MG/2 ML VIAL 1.25 MG IM (00:03)
[2024-03-21] MEDS: hydrOXYzine HCL 25 MG TAB PO (00:25)
[2024-03-21 01:12] VITALS: BP 140/95; PULSE 85; RESP 16; O2SAT 100
== END 2024-03-21 01:12 | disposition left against medical advice (07) ==
PROVIDERS: Emergency Provider Student in an Organized Health Care Education/Training Program; PCP Nurse Practitioner
DX: R10.32 Left lower quadrant pain (principal); I10 Essential (primary) hypertension; K57.32 Diverticulitis of large intestine without perforation or abscess without bleeding; K58.9 Irritable bowel syndrome, unspecified; Z53.29 Procedure and treatment not carried out because of patient's decision for other reasons
CPT/HCPCS: 96372; 99284; 99283; J1790; J1885

== ENCOUNTER 2024-04-08 11:54 | Inpatient (IN) | payer MEDICAID, SELFPAY ==
[2024-04-08] VITALS (37 sets, daily range): BP systolic 123–160; BP diastolic 67–97; PULSE 73–107; RESP 18; TEMP 36.6–36.7; O2SAT 94–100
--- NOTE | 2024-04-08 12:17 | W.ED.GENAD ---
Discharge Plan Disposition Patient Disposition: Admit to [facility] Condition: Stable Discharge Details Chief Complaint: Abd Prob Clinical Impression: Acute cholecystitis Admit Date/Time: 04/08/24 15:35 Admit Provider: Apurva Jordan Attending Provider: Apurva Jordan Primary Care Provider: Leora Lea ED Provider: Samaria Sarabia [facility] General Mode of arrival: ambulatory. Date/Time Provider Initiated Documentation: 04/08/24 12:07. Limitations to Documentation: no limitations. Information obtained by: patient, family and old records reviewed. HPI Narrative: HPI: This is a 33-year-old male patient with a past medical history significant for IBS, diverticulosis, who is presenting for evaluation of right upper quadrant abdominal pain with nausea and vomiting. The patient reports that he has had pain in his right upper quadrant for the last few weeks, did have a CT scan that revealed some very cholecystic fluid, but no gallstones. He was referred to GI, met with them and had an ultrasound at [facility] yesterday. He received a phone call stating that there were gallstones and concerning findings for gallbladder disease, and he was instructed to seek care at an emergency department for reevaluation. The patient reports that he has had nausea and vomiting overnight, has not had anything he has no new changes to his bowel habits, denies dysuria. To eat or drink due to his nausea and vomiting. Does not believe he has been running a fever, no personal history of abdominal surgeries. Exam: Gen: Awake and alert, in no apparent distress HEENT: Non-icteric sclera Neck: Supple Lungs: No apparent respiratory distress, normal respiratory effort. CV: Appears well perfused, heart with tachycardic rate and regular rhythm, strong distal pulses Abdomen: Non-distended, soft, tender to palpation in the right upper quadrant with a positive Cornell sign. No rigidity, rebound, or guarding MSK: Moves 4 extremities without apparent limitation in ROM Skin: Visualized skin without rashes, cyanosis. Neuro: Normal Gait, no obvious focal deficits or facial asymmetry. Speaks in full, clear sentences. Psych: Appropriate for situation. MDM: This is a 33-year-old male patient presenting for evaluation of right upper quadrant abdominal pain with an outside hospital ultrasound concerning for gallstones. Differential includes but is not limited to cholelithiasis/biliary colic, cholecystitis, choledocholithiasis. The patient is well-appearing and afebrile, making cholangitis less likely. Certainly considered pancreatitis. Additionally, the patient does have a robust abdominal pain history including IBS, diverticulitis, less consistent with the patient's historical pain patterns. We will obtain a bedside ultrasound, attempt to obtain records from [facility]. I will obtain laboratory studies to include CBC, CMP, lipase, magnesium. I will provide the patient with Tylenol, Toradol, and Zofran for initial symptomatic management and keep him n.p.o. ED Course: I independently interpreted the laboratory studies, which show no significant leukocytosis, anemia, or thrombocytopenia. The chemistry panel is without evidence of electrolyte abnormality, kidney dysfunction, or liver injury. Lipase is low. My bedside ultrasound was concerning for cholecystitis with a thickened gallbladder wall and evidence of gallstones and sludge. He additionally had a positive sonographic Cornell sign. I spoke to the surgeon, who requested a repeat formal ultrasound. I was able to review the ultrasound obtained at [place] yesterday, which showed gallstones without cholecystitis, concerning for evolution given the persistent pain. Repeat ultrasound demonstrates cholecystitis with thickened gallbladder wall, an 8 mm stone in the gallbladder neck. For this reason the patient was admitted by the surgical team for definitive management. Remained hemodynamically appropriate while under my care. Samaria Sarabia MD Related Data Home Medications ?Medication ?Instructions ?Recorded ?Confirmed acetaminophen 325 mg capsule 975 mg (3 x 325 mg) PO Q6H PRN #0 03/02/24 04/08/24 (Tylenol) caps ibuprofen 200 mg capsule 600 mg (3 x 200 mg) PO Q8H PRN #0 03/02/24 04/08/24 caps dicyclomine 10 mg capsule 10 mg PO TID PRN abdominal pain 03/07/24 04/08/24 #30 caps linaclotide 145 mcg capsule 145 mcg PO DAILY 03/20/24 04/08/24 (Linzess) Previous Rx's ?Medication ?Instructions ?Recorded acetaminophen 325 mg capsule 975 mg (3 x 325 mg) PO Q6H PRN #0 03/02/24 (Tylenol) caps ibuprofen 200 mg capsule 600 mg (3 x 200 mg) PO Q8H PRN #0 03/02/24 caps dicyclomine 10 mg capsule 10 mg PO TID PRN abdominal pain 03/07/24 #30 caps Allergies Allergy/AdvReac Type Severity Reaction Status Date / Time Penicillins AdvReac Unknown unknown Verified 04/08/24 12:10 General Stated Complaint: Abd Prob RON: 3 Course Vital Signs Vital signs: Vital Signs Temperature 36.7 C 04/08/24 12:05 Pulse 105 H 04/08/24 12:05 Respiratory Rate 18 04/08/24 12:05 Blood Pressure 140/87 04/08/24 12:05 Pulse Oximetry 98 04/08/24 12:05 Temperature 36.7 C 04/08/24 12:05 Temperature Source Oral 04/08/24 12:05 Pulse 105 H 04/08/24 12:05 Respiratory Rate 18 04/08/24 12:05 Respiratory Effort Normal 04/08/24 12:08 Blood Pressure 140/87 04/08/24 12:05 Pulse Oximetry 98 04/08/24 12:05 Oxygen Delivery Method Room Air 04/08/24 12:05 Oxygen Flow Rate 0 04/08/24 12:05 Pain Level 6 04/08/24 12:05 Medical Decision Making Quality:SDOH Health Related Social Needs: No Data to Display PFSH All Active Problems (Updated 04/08/24 @ 16:46 by Samaria Sarabia MD) Acute cholecystitis (Acute) Chronic idiopathic constipation (Acute ~03/2024) 03/17/24 Ov with Nam Moore APRN Tubular adenoma of colon (Acute 09/15/23) transverse colon Tear of meniscus of left knee (Acute) Obesity, Class I, BMI 30-34.9 (Chronic) Hypertension (Acute) Tobacco abuse (Acute) Medical History (Updated 04/08/24 @ 16:46 by Samaria Sarabia MD) Adenoma of colon (~09/2023) H/O constipation Colon, diverticulosis (~09/2023) 03/17/24 OV with [facility] GI Depression Surgical History H/O colonoscopy with polypectomy (09/15/23) [facility] Dr Yanez S/P tonsillectomy and adenoidectomy Family History Mother Diabetes Father Cancer former smoker Paternal Uncle Cancer Social History Smoking/Tobacco Use Status: Current every day Tobacco Type: cigarettes Tobacco: How many years used: 10 Smoking risk assessment performed?: Yes Alcohol Intake: former Drug use: Daily Substance use type: marijuana Counseling given: No Adopted: No Caregiver/Support person: No Foster care: No Household members: significant other and children Housing: house Number of Children: 2 Communication Needs: None Education Level: high school Do you need help understanding health information?: 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 Pets and animals: cat(s), dog(s) and other Details: chickens Sexually active: Yes Do you think of yourself as: straight/heterosexual Current gender identity: male What is your relationship status?: living with partner How often do you talk on the phone with friends or family?: three or more times per week How often do you get together with friends or relatives?: twice per week Do you belong to any clubs or organized social groups?: no Panel score (0-1 are the most socially isolated patients): 2 What type of physical activity do you participate in: walking and other Details: hunting, hiking Frequency: 3-4 times per week Special kavitha needs: No Seatbelt use: always Helmet use: Yes Helmet use: always Drive 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 POCUS Exam (ED) Limited Gallbladder Exam DATE OF EXAM: 04/08/24 TIME OF EXAM: 12:25 PROVIDER THAT PERFORMED THE STUDY: Samaria Sarabia IS THIS A REPEAT EXAM DURING THIS ENCOUNTER: No REASON FOR VISIT: Positive Cornell's sign and RUQ pain VISUALIZED STRUCTURES: Common bile duct, Gallbladder and Gallbladder wall PERTINENT FINDINGS/IMPRESSION: Cholecystitis, Gallstones, Sludge in gallbladder and Thickened gallbladder wall Exam complete
[2024-04-08 12:27] LABS: Abs Immature Grans 0.06 10^3/uL (0.0-0.06); Absolute Basophil Count 0.04 10^3/uL (0.0-0.2); Absolute Lymphocyte Count 2.78 10^3/uL (1.2-3.4); Absolute Monocyte Count 0.89 10^3/uL (0.1-0.8); Absolute Neutrophil Count 6.43 10^3/uL (1.2-6.7); Basophils % 0.4 %; HGB 16.5 g/dL (13.5-17.5); Immature Grans % 0.6 %; MCH 28.5 pg (27.0-33.0); MCHC 33.7 % (32.0-36.0); MCV 85 fL (80-95); Monocytes % 8.6 %; Neutrophils % 62.4 %; Platelet Count 392 10^3/uL (130-400); RBC 5.79 10^6/uL (4.36-5.78); RDW 13.2 % (11.8-14.1); RDW-SD 40.6 fL
[2024-04-08 12:45] LABS: ALT 47 U/L (16-63); AST 19 U/L (15-37); Albumin 4.2 g/dL (3.4-5.0); Alkaline Phosphatase 78 U/L (46-116); Anion Gap 9.1 mmol/L (3-11); BUN 15 mg/dL (7-18); Bilirubin, Total 0.38 mg/dL (0.2-1.0); CO2 28.9 mmol/L (21.0-32.0); CREATININE 0.9 mg/dL (0.70-1.30); Chloride 105 mmol/L (98-107); Estimated GFR 115.65 (mL/min/1.73m2); Glucose 105 mg/dL (74-106); Lipase 35 U/L (<78); Magnesium 2.1 mg/dL (1.8-2.4); Potassium 3.6 mmol/L (3.5-5.1); Sodium 143 mmol/L (136-145); Total Protein 7.9 g/dL (6.4-8.2)
[2024-04-08] MEDS: Ondansetron 4 MG/2 ML VIAL IVP ×2 (12:46→20:33)
[2024-04-08] MEDS: Ketorolac 15 MG/ML VIAL IVP (12:47)
[2024-04-08 12:50] LABS: Calcium 9.1 mg/dL (8.5-10.1)
--- NOTE | 2024-04-08 13:15 | DI.US_ITS ---
Exam(s) US ABDOMEN LIMITED EXAM: US ABDOMEN LIMITED CLINICAL HISTORY: RUQ pain, eval gallbladder TECHNIQUE: Ultrasound abdomen performed using standard protocol. COMPARISON: CT CT ABDOMEN PELVIS W from 06/22/[address] ABDOMEN PELVIS W from 03/02/2024 FINDINGS: LIVER: Normal size and echogenicity. No focal liver lesions are seen. GALLBLADDER: 8 millimeter stone at gallbladder neck. Marked wall thickening to 7 millimeters. Gallb ladder full of stones and sludge. No pericholecystic fluid identified. RICHARDSON'S SIGN: Positive BILIARY SYSTEM: No intrahepatic or extrahepatic biliary ductal dilation. Right KIDNEY: No evidence of renal calculi. No evidence of hydronephrosis. No renal mass or cyst iden tified. PANCREAS: Normal where visualized. ABDOMINAL AORTA AND IVC: Visualized portions normal caliber. ASCITES: None seen. IMPRESSION: The gallbladder is abnormally distended, thick-walled and filled with tiny stones and/or sludge. 8 m illimeter stone in gallbladder neck. Findings are consistent with acute cholecystitis. Findings called to Dr. Sarabia, ER provider. DATA REPOSITORY:
[2024-04-08] MEDS: MORPHine 4 MG/ML SYR IVP (13:26)
--- NOTE | 2024-04-08 15:43 | HPE_ITS ---
Date of service: 04/08/24 Time of Service: 15:43 Assessment and Plan Assessment and plan (1) Cholelithiasis and acute cholecystitis without obstruction: Status: Acute Assessment and plan: Riskss of surgery: The alternatives to surgery, risks, complications, and the possible need to convert to open cholecystectomy were discussed. Also bleeding, infection, pneumonia, blood clots, complications of anesthesia, damage to bowel, bladder, blood vessels, or bile ducts, liver, need for blood transfusions. Also: chronic pain, chronic diarrhea/post-phani syndrome, reoccurrence of signs and symptoms, port site hernias, adhesions.? All questions were answered, and the patient elected to proceed with surgery. Also d/w pt dietary restrictions, abx-levaquin pulm toilet pain control surgery in am ICG preop pain plain time: 60 mins spent in consultation History of Present Illness Narrative: Patient is a 33-year-old male who presents to the ER for the second time in 2 days complaining of right upper quadrant pain. He has cholelithiasis on CT with the gallstone in the neck of the gallbladder. Please see ultrasound in [facility]. When talking to the patient he is actually been having abdominal pain for several years. It is in the b/l upper quadrants, wraps around in a bandlike fashion to his back. He also has been having gas/bloating/nausea. He cannot eat foods with cheese. It seems to bring on his symptoms. He denies any family history of gallbladder disease. He does not know if he has had his cholesterol checked. Currently he has pain in the right upper quadrant; it is tolerable for him. He had nausea and vomiting earlier today. He denies any fever or chills today. He does have a longstanding history of constipation. He has tried multiple promotility agents, including MiraLAX daily but has had no relief from symptoms. He is currently on Linzess 145 mcg daily, and has a bowel movement daily. But now, he is having diarrhea. He is on he also has history of diverticula. He has had diverticulitis in the past. He has been having recurrent abdominal pain that has previously been attributed to his diverticula. In talking with the patient about his symptoms, I do feel that his symptoms are actually more gallbladder in nature, rather than from his diverticula. We talked about the etiology of gallstone disease and its natural progression. We talked about the role of the gallbladder and digestion. We discussed surgery in detail and what he could expect during surgery, recovery, recovery time, and risks and benefits of surgery. Past surgery significant for: Tonsils and adenoids as a child and a colonoscopy. He denies any problems with anesthesia. He is a smoker. He had asthma as a child but he outgrew this. He denies any history of heart disease. He states his blood pressure is always high when he goes to the doctor's office. 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 He is not diabetic. Review of Systems All systems reviewed & are unremarkable except as noted in HPI and below PFSH All Active Problems (Updated 04/08/24 @ 20:39 by Apurva Jordan DO) Cholelithiasis and acute cholecystitis without obstruction (Acute) Acute cholecystitis (Acute) Chronic idiopathic constipation (Acute ~03/2024) 03/17/24 Ov with Nam Moore APRN Tubular adenoma of colon (Acute 09/15/23) transverse colon Tear of meniscus of left knee (Acute) Obesity, Class I, BMI 30-34.9 (Chronic) Hypertension (Acute) Tobacco abuse (Acute) Medical History Adenoma of colon (~09/2023) H/O constipation Colon, diverticulosis (~09/2023) 03/17/24 OV with [facility] GI Depression Surgical History H/O colonoscopy with polypectomy (09/15/23) [facility] Dr Yanez S/P tonsillectomy and adenoidectomy Family History Mother Diabetes Father Cancer former smoker Paternal Uncle Cancer Social History Smoking/Tobacco Use Status: Current every day Tobacco Type: cigarettes Tobacco: How many years used: 10 Smoking risk assessment performed?: Yes Alcohol Intake: former Drug use: Daily Substance use type: marijuana Counseling given: No Adopted: No Caregiver/Support person: No Foster care: No Household members: significant other and children Housing: house Number of Children: 2 Communication Needs: None Education Level: high school Do you need help understanding health information?: 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 Pets and animals: cat(s), dog(s) and other Details: chickens Sexually active: Yes Do you think of yourself as: straight/heterosexual Current gender identity: male What is your relationship status?: living with partner How often do you talk on the phone with friends or family?: three or more times per week How often do you get together with friends or relatives?: twice per week Do you belong to any clubs or organized social groups?: no Panel score (0-1 are the most socially isolated patients): 2 What type of physical activity do you participate in: walking and other Details: hunting, hiking Frequency: 3-4 times per week Special kavitha needs: No Seatbelt use: always Helmet use: Yes Helmet use: always Drive 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 w/intox 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 flatbed 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 Meds Allergies and Home Medications Allergies Allergy/AdvReac Type Severity Reaction Status Date / Time Penicillins AdvReac Unknown unknown Verified 04/08/24 12:10 Home Medications ?Medication ?Instructions ?Recorded ?Confirmed ?Type acetaminophen 325 mg capsule 975 mg (3 x 325 mg) PO Q6H PRN #0 03/02/24 04/08/24 Rx (Tylenol) caps ibuprofen 200 mg capsule 600 mg (3 x 200 mg) PO Q8H PRN #0 03/02/24 04/08/24 Rx caps dicyclomine 10 mg capsule 10 mg PO TID PRN abdominal pain 03/07/24 04/08/24 Rx #30 caps linaclotide 145 mcg capsule 145 mcg PO DAILY 03/20/24 04/08/24 History (Linzess) Exam Narrative Exam Narrative: PHYSICAL EXAM GENERAL APPEARANCE: Alert, healthy appearance, oriented, x 3,? in no acute distress HYDRATION: Well hydrated HEAD, EYES, EARS, NECK, THROAT: Head is normocephalic, pupils equal, round, reactive to light and accommodation, ocular movement intact, sclera clear and no jaundice. ?Dentition intact. NECK: ? Trachea midline.? Neck supple.? No JVD LUNGS: normal respiration/normal chest excursion. ?Clear to auscultation bilaterally. ?No wheeze. ?HEART: Regular rate and rhythm. no murmurs? ABDOMEN: RUQ tenderness and guarding. no peritonitis. ? Normal bowel sounds.? No hernias.? Results Labs 04/08/24 12:17 04/08/24 12:17 Labs: Laboratory Results - last 24 hr 04/08/24 12:17 WBC 10.30 RBC 5.79 H Hgb 16.5 Hct 49.0 MCV 85 MCH 28.5 MCHC 33.7 RDW 13.2 Plt Count 392 MPV 9.0 Immature Gran % 0.6 Neutrophils % 62.4 Lymphocytes % 27.0 Monocytes % 8.6 Eosinophils % 1.0 Basophils % 0.4 Nucleated RBC % 0.0 Absolute Neutrophils 6.43 Absolute Lymphocytes 2.78 Absolute Monocytes 0.89 H Absolute Eosinophils 0.10 Absolute Basophils 0.04 Sodium 143 Potassium 3.6 Chloride 105 Carbon Dioxide 28.9 Anion Gap 9.1 BUN 15 Creatinine 0.9 Est GFR (CKD-EPI 2020) 115.65 Glucose 105 Calcium 9.1 Magnesium 2.1 Total Bilirubin 0.38 AST 19 ALT 47 Alkaline Phosphatase 78 Total Protein 7.9 Albumin 4.2 Lipase 35 Last Vital Signs Temp 36.7 C 04/08/24 12:05 Pulse 73 04/08/24 14:26 Resp 18 04/08/24 12:05 BP 126/72 04/08/24 14:26 Pulse Ox 95 04/08/24 14:26 Time Spent Time spent with Patient: 55-74 minutes Time was spent: preparing to see the patient(eg.review tests), obtaining and/or reviewing separately otained hiistory, ordering medications,tests, procedures, referring, communicating with other health career development manager, indepentently interpreting results, counseling the patient, care coordination and other
--- NOTE | 2024-04-08 15:55 | W.PC.ACHO ---
Registration Status: Primary Language: Preferred Language: ED Information & Data Chief Complaint Abd Prob 04/08/24 12:18 Triage Note pt has had abd in past, seen 04/08/24 12:05 GI, who did US yesterday and dx'd pt w/ gallstones and biliary sludge. came in today per recommendation from GI, has been vomiting since last night, RUQ/rib pain. has apt w/ surg on the . pt has not been able to maintain fluids since last evening Medical / Surgical History (Last Updated 03/22/24 @ 15:11 by Meggan Barksdale LPN) Adenoma of colon (~09/2023) H/O constipation Colon, diverticulosis (~09/2023) Depression (Last Reviewed 03/07/24 @ 21:39 by Sofia Mullen MD) H/O colonoscopy with polypectomy (09/15/23) S/P tonsillectomy and adenoidectomy Most Recent Vital Signs Temperature 36.7 C 04/08/24 12:05 Temperature Source Oral 04/08/24 12:05 Pulse 73 04/08/24 14:46 Pulse 107 H 04/08/24 12:11 Respiratory Rate 18 04/08/24 12:05 Respiratory Effort Normal 04/08/24 12:08 Blood Pressure 130/67 04/08/24 14:46 Blood Pressure Mean 87 04/08/24 14:46 Pulse Oximetry 96 04/08/24 15:50 Oxygen Delivery Method Room Air 04/08/24 12:05 Oxygen Flow Rate 0 04/08/24 12:05 Pain Level 6 04/08/24 12:05 Allergies Penicillins Adverse Reaction (Unknown, Verified 04/08/24 12:10) unknown IV IV Catheter Type [Left Peripheral IV Antecubital] IV Catheter Gauge [Left 18 Antecubital] Diagnostics 04/08/24 Range/Units 12:17 WBC 10.30 (4.4-10.8) 10^3/uL RBC 5.79 H (4.36-5.78) 10^6/uL Hgb 16.5 (13.5-17.5) g/dL Hct 49.0 (40.0-50.0) % MCV 85 (80-95) fL MCH 28.5 (27.0-33.0) pg MCHC 33.7 (32.0-36.0) % RDW 13.2 (11.8-14.1) % Plt Count 392 (130-400) 10^3/uL MPV 9.0 (8.0-11.0) fL Immature Gran % 0.6 % Neutrophils % 62.4 % Lymphocytes % 27.0 % Monocytes % 8.6 % Eosinophils % 1.0 % Basophils % 0.4 % Nucleated RBC % 0.0 (0.0-0.3) % Absolute Neutrophils 6.43 (1.2-6.7) 10^3/uL Absolute Lymphocytes 2.78 (1.2-3.4) 10^3/uL Absolute Monocytes 0.89 H (0.1-0.8) 10^3/uL Absolute Eosinophils 0.10 (0.0-0.7) 10^3/uL Absolute Basophils 0.04 (0.0-0.2) 10^3/uL Sodium 143 (136-145) mmol/L Potassium 3.6 (3.5-5.1) mmol/L Chloride 105 (98-107) mmol/L Carbon Dioxide 28.9 (21.0-32.0) mmol/L Anion Gap 9.1 (3-11) mmol/L BUN 15 (7-18) mg/dL Creatinine 0.9 (0.70-1.30) mg/dL Est GFR (CKD-EPI 2020) 115.65 (mL/min/1.73m2) Glucose 105 (74-106) mg/dL Calcium 9.1 (8.5-10.1) mg/dL Magnesium 2.1 (1.8-2.4) mg/dL Total Bilirubin 0.38 (0.2-1.0) mg/dL AST 19 (15-37) U/L ALT 47 (16-63) U/L Alkaline Phosphatase 78 (46-116) U/L Total Protein 7.9 (6.4-8.2) g/dL Albumin 4.2 (3.4-5.0) g/dL Lipase 35 (<78) U/L Intake and Output - 24 Hour Total 04/08/24 11:54 thru 04/08/24 12:05 Weight 99.79 kg Falls Risk Assessment History of Falls No History 04/08/24 12:21 Contributing Factors No Factors 12/05/24 12:21 Ambulatory Aids Independent 04/08/24 12:21 Tubes/Lines None 04/08/24 12:21 Gait Evaluation No gait disturbance 04/08/24 12:21 Cognition No cognitive impairment 04/08/24 12:21 Fall Total Score 0 04/08/24 12:21 Level of Risk Standard/Low Risk 04/08/24 12:21 v v v v v v v v v Sending and/or Receiving Nurses: Please use comment section below to note any information pertinent to the patient hand-off not included above. Information / Comments: Patient on his way up to the med/surg floor Report received from:Fiorella RN in ED on 04/08/2024 at [id number]
[2024-04-08] MEDS: MORPHine 2 MG/ML SYR IVP ×4 (16:49→22:15)
[2024-04-08] MEDS: Nicotine 14 MG/24 HR PATCH TD (18:35)
[2024-04-08] MEDS: Normal Saline Flush 10 ML SYR IVP ×2 (18:38→19:45)
[2024-04-08] MEDS: levoFLOXacin 500 MG/100 ML BAG 100 MG IVPB (18:45)
[2024-04-08] MEDS: Nicotine 4 MG GUM CH (20:28)
[2024-04-08 21:38] LABS: Lab Add On Test DONE
[2024-04-08 21:56] LABS: Calculated LDL 109 mg/dL (<100); Cholesterol 177 mg/dL (<200); HDL Cholesterol 46 mg/dL (40-60); Triglyceride 114 mg/dL (<150)
[2024-04-09] VITALS (36 sets, daily range): BP systolic 102–140; BP diastolic 57–97; PULSE 65–111; RESP 9–24; TEMP 36.3–37.3; O2SAT 88–100; BMI 34.2
[2024-04-09] MEDS: MORPHine 2 MG/ML SYR IVP ×11 (00:07→23:59)
[2024-04-09] MEDS: Normal Saline Flush 10 ML SYR IVP ×6 (00:07→20:53)
[2024-04-09] MEDS: Nicotine 4 MG GUM CH ×5 (00:17→21:53)
[2024-04-09] MEDS: Acetaminophen 500 MG TAB 1000 MG PO ×2 (04:44→22:21)
[2024-04-09] MEDS: Nicotine 14 MG/24 HR PATCH TD (07:54)
[2024-04-09] MEDS: Ondansetron 4 MG/2 ML VIAL IVP (10:50)
--- NOTE | 2024-04-09 11:21 | ANES.PREOP_ITS ---
General Info Date of Service Date Performed: 04/09/24 Height: 5 ft 7 in Weight: 99 kg Body Mass Index (BMI): 34.2 Surgical Procedure: Operation Date: 04/09/24 13:10 Proposed Procedure Side Surgeon p Cholecystectomy Laparoscopic Apurva Jordan DO Meds Allergies and Home Medications Allergies Allergy/AdvReac Type Severity Reaction Status Date / Time Penicillins AdvReac Unknown unknown Verified 04/08/24 12:10 Home Medication ?Medication ?Instructions ?Recorded acetaminophen 325 mg capsule 975 mg (3 x 325 mg) PO Q6H PRN #0 03/02/24 (Tylenol) caps ibuprofen 200 mg capsule 600 mg (3 x 200 mg) PO Q8H PRN #0 03/02/24 caps dicyclomine 10 mg capsule 10 mg PO TID PRN abdominal pain 03/07/24 #30 caps linaclotide 145 mcg capsule 145 mcg PO DAILY 03/20/24 (Linzess) Current Visit Medications: Current Medications Generic Name Dose Route Start Last Admin Trade Name Freq PRN Reason Stop Dose Admin Acetaminophen 1,000 mg 04/08/24 16:00 04/09/24 09:48 Acetaminophen 500 Mg Tab PO Not Given Q6H MARKOS Gabapentin 600 mg 04/09/24 07:00 Gabapentin 600 Mg Tab PO PREOP MARKOS Sodium Chloride 1,000 mls @ 75 mls/hr 04/08/24 15:45 Saline 1000ml Bag IV INFUSION MARKOS Levofloxacin 500 mg in 100 mls @ 100 mls/hr 04/08/24 18:00 04/08/24 19:50 Levaquin Premixed Bag IVPB Infused Q24H MARKOS Infusion IV Miscellaneous Supplies 1 each 04/08/24 15:45 Iv Access IV DIRECTED MARKOS Indocyanine Green 5 mg 04/09/24 07:45 Indocyanine Green 25 Mg Vial IVP PREOP MARKOS Morphine Sulfate 2 mg 04/08/24 15:35 04/09/24 10:29 Morphine 2 Mg/Ml Syr IVP 2 mg Q1H PRN PRN Administration Nicotine 14 mg 04/09/24 08:30 04/09/24 07:54 Nicotine 14 Mg/24 Hr Patch TD 14 mg DAILY MARKOS Administration Nicotine 4 mg 04/08/24 20:00 04/09/24 07:53 Nicotine 4 Mg Gum CH 4 mg Q2H PRN PRN Administration Ondansetron HCl 4 mg 04/08/24 15:35 04/09/24 10:50 Ondansetron 4 Mg/2 Ml Vial IVP 4 mg Q4H PRN PRN Administration Sodium Chloride 0 ml 04/08/24 15:35 04/09/24 10:30 Normal Saline Flush 10 Ml Syr IVP 10 ml PRN PRN Administration Sodium Chloride 0 ml 04/08/24 20:00 04/09/24 08:02 Normal Saline Flush 10 Ml Syr IVP 10 ml BID MARKOS Administration Sodium Chloride 0 ml 04/08/24 15:35 Normal Saline 10 Ml Vial IJ DIRECTED PRN PFSH Active Problems Active Problems: Problem Status Onset Code Cholelithiasis and acute cholecystitis without obstruction Acute K80.00 Acute cholecystitis Acute K81.0 Chronic idiopathic constipation Acute ~03/2024 K59.04 Tubular adenoma of colon Acute 09/15/23 D12.6 Tear of meniscus of left knee Acute S83.207A Obesity, Class I, BMI 30-34.9 Chronic E66.9 Hypertension Acute I10 Tobacco abuse Acute Z72.0 Medical History Medical History Adenoma of colon (~09/2023) H/O constipation Colon, diverticulosis (~09/2023) 03/17/24 OV with [facility] GI Depression Surgical History Surgical History H/O colonoscopy with polypectomy (09/15/23) [facility] Dr Yanez S/P tonsillectomy and adenoidectomy Tobacco Smoking/Tobacco Use Status: Current every day Tobacco Type: cigarettes Alcohol Alcohol Intake: former Substance Use Substance use: Daily Substance use type: marijuana Vital Signs and Lab Results Vital Signs Most Recent Vital Signs in EMR: Most Recent Vital Signs Temp Pulse Resp BP Pulse Ox 37.3 C 90 24 126/68 94 04/09/24 11:11 04/09/24 11:11 04/09/24 11:11 04/09/24 11:11 04/09/24 11:11 Lab Results 04/08/24 12:17 04/08/24 12:17 Blood Type / Crossmatch: 2 No Data to Display Complete Blood Count: 2 White Blood Count 10.30 10^3/uL (4.4-10.8) 04/08/24 12:17 Red Blood Count 5.79 10^6/uL (4.36-5.78) H 04/08/24 12:17 Hemoglobin 16.5 g/dL (13.5-17.5) 04/08/24 12:17 Hematocrit 49.0 % (40.0-50.0) 04/08/24 12:17 Platelet Count 392 10^3/uL (130-400) 04/08/24 12:17 Complete Metabolic Panel: 2 Sodium 143 mmol/L (136-145) 04/08/24 12:17 Potassium 3.6 mmol/L (3.5-5.1) 04/08/24 12:17 Chloride 105 mmol/L (98-107) 04/08/24 12:17 Carbon Dioxide 28.9 mmol/L (21.0-32.0) 04/08/24 12:17 BUN 15 mg/dL (7-18) 04/08/24 12:17 Creatinine 0.9 mg/dL (0.70-1.30) 04/08/24 12:17 Est GFR (CKD-EPI 2020) 115.65 (mL/min/1.73m2) 04/08/24 12:17 Magnesium 2.1 mg/dL (1.8-2.4) 04/08/24 12:17 Calcium 9.1 mg/dL (8.5-10.1) 04/08/24 12:17 Albumin 4.2 g/dL (3.4-5.0) 04/08/24 12:17 Glucose 105 mg/dL (74-106) 04/08/24 12:17 Liver Function Panel: 2 Alanine Aminotransferase (ALT/SGPT) 47 U/L (16-63) 04/08/24 12: 17 Aspartate Amino Transf (AST/SGOT) 19 U/L (15-37) 04/08/24 12:17 Coagulation Panel: 2 No Data to Display Cardiac Panel: 2 No Data to Display Arterial Blood Gas: 2 No Data to Display Venous Blood Gas: 2 No Data to Display Pancreas Panel: 2 Lipase 35 U/L (<78) 04/08/24 12:17 Thyroid Panel: 2 No Data to Display Infectious Disease: 2 No Data to Display Blood Cultures: 2 No Data to Display Toxicology Panel: 2 No Data to Display Imaging and Studies Imaging and Studies Study information below may be from another EMR and interpreted by another provider. Please see original notes in EMR for more complete details. Carotid Artery Summary:: IMPRESSION: No evidence of a hemodynamically significant carotid stenosis. Anesthesia Assessment and Plan Anesthesia History Personal History: No History of Anesthesia Complications Family History: No Family History of Anesthesia Complications Exercise Tolerance Exercise Tolerance: Metabolic Equivalents>4 Pertinent Negatives Pertinent Negatives: No Symptoms of GERD Cardiac & Pulmonary Exam Cardiac Exam: Normal S1/S2 Heart Sounds Pulmonary Exam: Clear Bilateral Breath Sounds Implantable Cardiac Device Does patient have a Pacemaker or an ICD?: No Airway Exam Known Difficult Airway: No Mallampati Class: 2 Mouth Opening: Normal (> 3cm) Thyromental Distance: Greater than 3 cm Neck Range of Motion: Full ROM Neck Circumference: Normal Teeth Condition: Normal Dentition ASA Classification ASA Score: ASA 2 Emergency Case?: No NPO Status NPO Status: NPO Clears >2 hours, Solids >8 hours Anesthesia Plan Resuscitation Status: Full Code Anesthesia Technique: General Anesthesia Airway Planned: Endotracheal Tube Monitors Used: Standard Monitors
[2024-04-09] MEDS: Indocyanine green 25 MG VIAL 5 MG IVP (12:04)
[2024-04-09] MEDS: Normal Saline 1,000 ML 75 ML IV (12:11)
--- NOTE | 2024-04-09 15:15 | GB_PTH ---
PATIENT: Ag Bond LOC: U#:[id number] AGE/SX: 33/M ROOM: 231 RE04/08/[address]: Apurva Jordan : 1990 BED: A DIS: 04/10/2024 SPEC #: [id number] RECD: 04/09/24 17:29 STATUS: WILDA REQ #: [id number] DEEPTHI: 04/09/24 15:[address]: Apurva Jordan DEPT: Surgical Specimen RECD BY: Ludivina Capellan ENTERED: 04/09/24 17:29 SP TYPE: GB OTHR DR: Leora Lea APRN Tissues: 1 - GALLBLADDER Procedures: GROSS AND MICRO LEVEL 3 Comments: [id number]
[2024-04-09] MEDS: Bupivacaine 0.25% Pres-Free W/EPI 30 ML VIAL (15:30)
--- NOTE | 2024-04-09 15:51 | PGE_ITS ---
Date of Service Date of service: 04/09/24 Time of Service: 15:51 Assessment and Plan Assessment and plan (1) Cholelithiasis and acute cholecystitis without obstruction: Status: Acute Assessment and plan: lap phani today The alternatives to surgery, risks, complications, and the possible need to convert to open cholecystectomy were discussed. Also bleeding, infection, pneumonia, blood clots, complications of anesthesia, damage to bowel, bladder, blood vessels, or bile ducts, liver, need for blood transfusions. Also: chronic pain, chronic diarrhea/post-phani syndrome, reoccurrence of signs and symptoms, port site hernias, adhesions.? All questions were answered, and the patient elected to proceed with surgery. Also d/w pt dietary restrictions, pt was given a handout on GB diet tips they should follow prior to surgery and for 2-6 wks after surgery, levaquin pain conytol plan Subjective Subjective Interval history since last seen: Patient is seen and examined: they are doing well. THey have : no headaches. No CP or SOB. no productive cough. no dysuria. no leg pain or swelling. Still c/o RUQ pain. No n/v. no fevers. Exam Narrative Exam Narrative: PHYSICAL EXAM GENERAL APPEARANCE: Alert, healthy appearance, oriented, x 3,? in no acute distress HYDRATION: Well hydrated HEAD, EYES, EARS, NECK, THROAT: Head is normocephalic, pupils equal, round, reactive to light and accommodation, ocular movement intact, sclera clear and no jaundice. ?Dentition intact. LUNGS: normal respiration/normal chest excursion. ?Clear to auscultation bilaterally. ?No wheeze. ?HEART: Regular rate and rhythm. no murmurs ABDOMEN: mild pain in RUQ. ? Normal bowel sounds.? No hernias.? Objective Last Vital Signs Temp 37.3 C 04/09/24 11:11 Pulse 90 04/09/24 11:11 Resp 24 04/09/24 11:11 BP 126/68 04/09/24 11:11 Pulse Ox 94 04/09/24 11:11 Laboratory Results - last 24 hr 04/08/24 04/08/24 12:17 Unknown Triglycerides 114 Total Cholesterol 177 LDL Cholesterol, Calc 109 H HDL Cholesterol 46 Add-On Test Request DONE Time Spent with Patient Time Spent with Patient: 25-34 minutes Time was spent: preparing to see the patient(eg.review tests), obtaining and/or reviewing separately otained hiistory, ordering medications,tests, procedures, referring, communicating with other health director of patient care, indepentently interpreting results, counseling the patient, care coordination and other
[2024-04-09] MEDS: HYDROmorphone 1 MG/ML SYR IVP ×3 (16:09→16:41)
--- NOTE | 2024-04-09 16:12 | W.PM.DS.N ---
Date of service: 04/10/24 Time of Service: 16:35 DS: Diagnosis Discharge Diagnosis (1) Cholelithiasis and acute cholecystitis without obstruction: Status: Acute Discharge Plan Disposition Patient Disposition: Home Condition: Good Discharge Details Reason For Visit: Acute Cholecystitis / Cholelithiasis Admit Date/Time: 04/08/24 15:35 Admit Provider: Apurva Jordan Attending Provider: Apurva Jordan Primary Care Provider: Leora Lea [facility] Hospital Course: Patient was admitted through the ER on 04/08 with acute on chronic cholecystitis cholelithiasis. He underwent uneventful Dagmar cystectomy on 04/09. He was admitted for IV antibiotics and pain control. He was discharged on 04/10 and will follow-up in clinic in 2 weeks time. Home Meds and New Rx's Prescriptions: Continued ibuprofen 200 mg capsule 600 mg PO Q8H PRNQty: 0 0RF Held dicyclomine 10 mg capsule 10 mg PO TID PRN (Reason: abdominal pain) Qty: 30 0RF Hold Instructions: Resume on 04/23/24. Linzess 145 mcg capsule 145 mcg PO DAILY Hold Instructions: Resume on 04/23/24. Patient Comments: TAKE ONE CAPSULE BY MOUTH EVERY DAY Discontinued acetaminophen [Tylenol] 325 mg capsule 975 mg PO Q6H PRNQty: 0 0RF Discharge Instructions Additional Instructions: Care after Gallbladder Surgery -Pain control: ?For the first 72 hours after surgery, take your pain meds continuously, and not just when you have pain.?? Alternate Tylenol 1000mg by mouth every 8 hours, and Ibuprofen 600mg every 6 hours.? Make sure you take ibuprofen with food and not on an empty stomach.? ??Use the tramadol for breakthrough pain- pain that is greater than a 7. ?- Use ICE! Ice really helps to keep the swelling down, and swelling causes pain. ??Twenty minutes on, and then off, continuously for the first 72hours.? After the first 72hrs, you can just use the Tylenol, ibuprofen or Celebrex, and ice, when you have pain.?? If you are taking narcotic pain medication, follow the instructions on the label and do not drive. Pain medications can make you very constipated. Make sure you are moving your bowels daily. If not, take Miralax. - Anesthesia makes you very constipated.? Take a dose of Miralax the morning after surgery. ? Use Miralax or prune juice to prevent constipation (this is a particular side effect of pain medication and anesthesia). Do not allow yourself to become constipated. -Hold dicyclomine and Linzess until follow-up appointment. ? Avoid fatty or greasy foods; introduce these slowly, with care, after 2 to 4 weeks. High-fat foods include: ? Foods that are fried, like Albanian fries and potato chips ? High-fat meats, such as hubbard, bologna, sausage, ground beef, and ribs, pork products ? High-fat dairy products, such as cheese, ice cream, cream, whole milk, and sour cream ? Pizza ? Foods made with lard or butter ? Creamy soups or sauces ? Meat gravies ? Chocolate ? Oils, such as palm and coconut oil ? Skin of chicken or turkey ? Nuts and nut butters ? Avocadoes ? Start out eating very small, bland amounts of food. Do not take pain pills on an empty stomach. - You will notice purple discoloration around the incisions.? This is the ?skin glue?.? This will wear off on its own.? It is OK to shower after 24hrs.? You do not need to cover the incisions. -No smoking for 2 wks. -You should walk frequently, gradually, increasing the distance. You may climb stairs, just go slowly. ? Do not go swimming or sit in a hot tub for two weeks. ? There are no stitches to remove. ? Do not drive your car x72hrs and then only if you have no pain and can move freely. Do not drive if you are taking pain narcotic pain medications. ? You may resume sexual activity whenever pain and soreness subside, usually in 2 weeks. ? Do no lift anything over 5 lbs. for two weeks. ? You may return to work in two weeks. Drop off anypaper work at the office. [facility]. [address] [place] [address] [place] [address]. ? You should return to Dr. Jordan?s office for a post-op appointment:please call the Surgical Clinic at: [phone] to schedule an appointment. Follow-up in clinic on April 22- You will need to call and make an appointment. My Medications for pain and nausea are: Tylenol/ibuprofen ?and ultram- for severe pain When to Call the Office: ? If the incision becomes red or swollen, or there is more than a little drainage from it. ? If you develop a temperature higher than 100.5 F. ? If your eyes turn yellow ? Vomiting and can?t keep fluids down Activity:: see above Equipment/Supplies:: No Equipment Needed Diet:: see above DS: Summary Time Spent with Patient providing and/or coordinating discharge services: Less than 30 minutes Status at Discharge Functional status at discharge: independent ambulation Overall status at discharge: patient is progressing back to baseline Mental Status: mental status grossly normal Speech and Movement: speech and movement normal Mood: congruent mood Affect: normal affect Quality:SDOH Health Related Social Needs: No Data to Display Exam Psych Mental Status: mental status grossly normal Speech and Movement: speech and movement normal Mood: congruent mood Affect: normal affect DS: Data Vitals/I&O Vitals and I&O: Vital Signs Temperature 36.3 C L 04/09/24 15:59 Temperature Source Tympanic 04/09/24 11:11 Pulse 65 04/09/24 16:00 Pulse Rhythm Regular 04/08/24 16:37 Pulse 68 04/09/24 16:01 Respiratory Rate 16 04/09/24 16:01 Respiratory Effort Normal 04/08/24 16:37 Respiratory Depth Normal 04/08/24 16:37 Respiratory Pattern Normal 04/08/24 16:37 Blood Pressure 118/71 04/09/24 16:00 Blood Pressure Mean 83 04/09/24 16:00 Pulse Oximetry 100 04/09/24 16:01 Respiratory End-tidal CO2 23 04/09/24 16:01 Oxygen Delivery Method OxyMask 04/09/24 15:59 Oxygen Flow Rate 8 04/09/24 15:59 Pain Level 6 04/09/24 10:29 Comment RN notified 04/09/24 07:35 Intake & Output 04/08/24 04/09/24 04/09/24 23:59 11:59 23:59 Intake Total 550 / 550 700 / 700 Output Total 200 / 200 Balance 550 / 550 500 / 500 Weight 99 kg 99 kg Intake: IV 100 / 100 700 / 700 Oral 450 / 450 Output: Urine 200 / 200 Other: Urine Color Yellow Yellow Urine Appearance Clear Clear Clear Urine Odor Normal Comment per patient Emesis Description None Data Completed and Pending Labs on day of discharge: Labs from last 24 hours 04/08/24 04/08/24 Unknown 12:17 Triglycerides 114 Total Cholesterol 177 LDL Cholesterol, Calc 109 H HDL Cholesterol 46 Add-On Test Request DONE [facility] All Active Problems (Updated 04/08/24 @ 20:39 by Apurva Jordan DO) Cholelithiasis and acute cholecystitis without obstruction (Acute) Acute cholecystitis (Acute) Chronic idiopathic constipation (Acute ~03/2024) 03/17/24 Ov with Nam Moore APRN Tubular adenoma of colon (Acute 09/15/23) transverse colon Tear of meniscus of left knee (Acute) Obesity, Class I, BMI 30-34.9 (Chronic) Hypertension (Acute) Tobacco abuse (Acute) Medical History Adenoma of colon (~09/2023) H/O constipation Colon, diverticulosis (~09/2023) 03/17/24 OV with [facility] GI Depression Surgical History H/O colonoscopy with polypectomy (09/15/23) [facility] Dr Yanez S/P tonsillectomy and adenoidectomy Family History Mother Diabetes Father Cancer former smoker Paternal Uncle Cancer Social History Smoking/Tobacco Use Status: Current every day Tobacco Type: cigarettes Tobacco: How many years used: 10 Smoking risk assessment performed?: Yes Alcohol Intake: former Drug use: Daily Substance use type: marijuana Counseling given: No Adopted: No Caregiver/Support person: No Foster care: No Household members: significant other and children Housing: house Number of Children: 2 Communication Needs: None Education Level: high school Do you need help understanding health information?: 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 Pets and animals: cat(s), dog(s) and other Details: chickens Sexually active: Yes Do you think of yourself as: straight/heterosexual Current gender identity: male What is your relationship status?: living with partner How often do you talk on the phone with friends or family?: three or more times per week How often do you get together with friends or relatives?: twice per week Do you belong to any clubs or organized social groups?: no Panel score (0-1 are the most socially isolated patients): 2 What type of physical activity do you participate in: walking and other Details: hunting, hiking Frequency: 3-4 times per week Special kavitha needs: No Seatbelt use: always Helmet use: Yes Helmet use: always Drive 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 w/intox jeep 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 Time Spent with Patient Time Spent with Patient: <45 minutes Time was spent: preparing to see the patient(eg.review tests), obtaining and/or reviewing separately otained hiistory, ordering medications,tests, procedures, referring, communicating with other health home care liaison, indepentently interpreting results, counseling the patient, care coordination and other
[2024-04-09] MEDS: fentaNYL 100 MCG/2 ML VIAL IVP ×2 (16:23→16:28)
--- NOTE | 2024-04-09 17:03 | INITIAL_ITS ---
Date of service: 04/09/24 Time of Service: 09:30 Care Management Initial Assmt Initial Assessment Reason for Hospitalization: cholecystitis Functional Status/Living Situation Patient Presentation: Ag presented to the ED yesterday with c/o RUQ abdominal pain for the last few weeks. He was referred to GI, had an US yesterday in [place], and received a call that there were gallstones and concerning findings for gallbladder disease, and he was instructed to seek care at an emergency department for reevaluation. Repeat US at [facility] showed cholecystitis with thickened gallbladder wall, an 8 mm stone in the gallbladder neck, and he was admitted for surgery. When met with Ag today, he was bright, alert, and denied pain. He stated his surgery was scheduled for 1pm, and was eager to get it over with. 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 loves it!) Activities/Hobbies/SocialSupport: Is a ana m, loves playing with his kids Medications Medication Management: No Issues/Barriers identified Advance Directives Advance Directives: Do you have an Advance Directive: N 08/07/20 09:09 AD On File at [facility]: N 08/07/20 09:09 Date Asked 04/08/24 04/08/24 12:41 AD Date Reviewed COLST On File at [facility] No 04/08/24 15:52 COLST Date Scanned Code Status Resuscitation Status Full Code Insurance Coverage/Financial Issues Insurance: Medicaid Financial Issues: denies Care Team Visit Care Team Role Provider Type Leora Lea NP Primary Care Provider NURSE PRACTITIONER Samaria Sarabia MD Emergency Provider [facility] STAFF PHYSICIAN Apurva Jordan, DO Admit Provider OSTEOPATHIC DOCTOR Attending Provider Discharge Potential Discharge Needs: Surgical F/U Appt Anticipated Barriers to Discharge: None Identified Patient/Family Education Needs: Review discharge instructions, discuss Ask Me Three Transportation: Private vehicle Plan: Anticipate that Ag will be discharged home tomorrow with no new services. He will f/u with the surgeon in 2 weeks. He will transport in a private vehicle, with his , and continue per his plan of care. CM will continue to follow. [facility] All Active Problems (Updated 04/08/24 @ 20:39 by Apurva Jordan DO) Cholelithiasis and acute cholecystitis without obstruction (Acute) Acute cholecystitis (Acute) Chronic idiopathic constipation (Acute ~03/2024) 03/17/24 Ov with Nam Moore APRN Tubular adenoma of colon (Acute 09/15/23) transverse colon Tear of meniscus of left knee (Acute) Obesity, Class I, BMI 30-34.9 (Chronic) Hypertension (Acute) Tobacco abuse (Acute) Medical History Adenoma of colon (~09/2023) H/O constipation Colon, diverticulosis (~09/2023) 03/17/24 OV with [facility] GI Depression Surgical History H/O colonoscopy with polypectomy (09/15/23) [facility] Dr Yanez S/P tonsillectomy and adenoidectomy Family History Mother Diabetes Father Cancer former smoker Paternal Uncle Cancer Social History Smoking/Tobacco Use Status: Current every day Tobacco Type: cigarettes Tobacco: How many years used: 10 Smoking risk assessment performed?: Yes Alcohol Intake: former Drug use: Daily Substance use type: marijuana Counseling given: No Adopted: No Caregiver/Support person: No Foster care: No Household members: significant other and children Housing: house Number of Children: 2 Communication Needs: None Education Level: high school Do you need help understanding health information?: 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 Pets and animals: cat(s), dog(s) and other Details: chickens Sexually active: Yes Do you think of yourself as: straight/heterosexual Current gender identity: male What is your relationship status?: living with partner How often do you talk on the phone with friends or family?: three or more times per week How often do you get together with friends or relatives?: twice per week Do you belong to any clubs or organized social groups?: no Panel score (0-1 are the most socially isolated patients): 2 What type of physical activity do you participate in: walking and other Details: hunting, hiking Frequency: 3-4 times per week Special kavitha needs: No Seatbelt use: always Helmet use: Yes Helmet use: always Drive 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 w/intox bicycle taxi 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 Readmission Within the Past 30 Days Yes or No: No SDOH(Care Management) Screening Will the Patient Participate in the Screening?: Yes Do you worry about having a steady place to live?: no Problems where you live: no known problems In the past 12 months, have you had to go without electric, gas, oil or water in your home?: no Have you or anyone in your house had to go without enough food to eat?: no Has lack of transportation kept you from medical appointments or from doing things needed for daily living?: no Has anyone in your support network made you feel unsafe for any reason?: no
--- NOTE | 2024-04-09 17:32 | W.ANESPOSTOP ---
Postoperative Evaluation Date, Time and Location Date Performed: 04/09/24 Time Performed: 16:42 Patient Location: PACU Vital Signs Most Recent Imported Vital Signs: Most Recent Vital Signs Temp Pulse Resp BP Pulse Ox 36.7 C 80 18 116/75 92 04/09/24 17:13 04/09/24 17:13 04/09/24 17:13 04/09/24 17:13 04/09/24 17:15 Pain Score Most Recent Pain Score: Most Recent Pain Score Pain Level [Right Mid Abdomen] 7 04/09/24 17:17 Pain Level 7 04/09/24 17:13 Assessment Mental Status: Awake (Alert & Oriented to Patient Baseline) Airway and Respiratory Function: Patent airway with normal (patient baseline) respiratory exam Cardiovascular Function: Hemodynamically Stable Hydration Status: Adequately Hydrated Nausea & Vomiting: No Nausea or Vomiting Pain: Pain is Moderate or Severe Postoperative Pain Management: Ongoing pain, patient will be managed as an inpatient Peripheral Nerve Block: Patient did not receive a nerve block
[2024-04-09] MEDS: Ketorolac 15 MG/ML VIAL IVP (18:19)
[2024-04-09] MEDS: levoFLOXacin 500 MG/100 ML BAG 100 MG IVPB (18:19)
--- NOTE | 2024-04-09 22:51 | W.BRIEF ---
Date of service: 04/09/24 Time of Service: 16:00 Brief Operative Note Procedure/Pre & Post Op Diagnoses/Holistic Nutritionist: Operation Date: 04/09/24 13:10 Actual Procedures p Cholecystectomy Laparoscopic(Not Applicable) - Apurva Jordan DO Pre-Op Diagnosis: Acute Cholecystitis / Cholelithiasis Post-Op Diagnosis: Acute Cholecystitis / Cholelithiasis Case Staff Physician Holistic Nutritionist: Katina Collins Physician Holistic Nutritionist: Apurva Vallejo Anesthesia Anesthesia Type: Local By Surgeon and General LMA/ETT Specimen/Culture Specimen(s): 1. Gallbladder Culture(s): None Complications Complications: None
--- NOTE | 2024-04-09 22:52 | ROE_ITS ---
Operative Note Operative Note PRE-OP DIAGNOSIS: Acute on chronic cholecystitis and cholelithiasis POST-OP DIAGNOSIS: same PROCEDURE: Laparoscopic cholecystectomy SURGEON: Apurva Panchal AUTOMOTIVE DISMANTLER: Katina Collins AUTOMOTIVE DISMANTLER: Apurva Valle ANESTHESIA TYPE: Local By Surgeon and General LMA/ETT Refer to Anesthesia Record ESTIMATED BLOOD LOSS: 10 PATHOLOGY: other COMPLICATIONS: None Patient was transported to: PACU Patient's condition: stable Procedure Description: The pt was admitted through the ER with regarding acute on chronic cholecystitis, cholelithiasis. Informed consent was obtained, explaining risks and benefits of the procedure including but not limited to bleeding, infection, pneumonia, blood clots, possible damage to bowel, bladder, blood vessels, bile ducts, possible open procedure, chronic pain or numbness, chronic diarrhea, hernias, complications of general anesthesia and other unforetold complications. PROCEDURE: The patient agrees and is brought to the operative room suite and placed in supine position. Pt receives IV ICG preOp to aid w/ bile duct visualization.? Anesthesia was administered per the Department of Anesthesia. The patient did receive IV antibiotics. The patient was prepped and draped in the usual sterile fashion using ChloraPrep prep scrub solution. Pause for the cause was done. 30 mL of 1% buffered lidocaine was used for local anesthetization. A 10 mm incision was made in the umbilicus. The camera was inserted through the umbilicus and via a a 10 mm Visiport, under direct visualization. Insufflation has begun and pressure is held at 15 mm. A 5 mm port was then placed in the epigastric position under direct visualization following creation of local field blocks as well, as two 5 mm ports in the right upper quadrant. The camera was moved to one of the secondary ports so we could view the umbilical trocar site, and there is are no hernias or adhesions. There are dense omental adhesions up to the ga llbladder. These are taken down with a combination of sharp and blunt dissection. The gallbladder is enlarged in the edematous. The gallbladder wall is thickened. There is induration and erythema of the gallbladder. The gallbladder fundus was grasped and retracted towards the right shoulder. Infundibulum was grasped and retracted laterally. The hepat-duodenal ligament is entered. The ligament is thickened and edematous. But the tissues are soft and not woody, and the dissection is easy to proceed with. The cystic duct and artery are dissected out and the most inferior portion of the gallbladder plate is removed from the liver and the critical view of safety was obtained after clearing away all fatty material. Endo Clips were placed across the duct and artery and these structures are divided. The remainder of the gallbladder was excised from the liver bed. The gallbladder was placed in a bag and brought out. Examination of the gallbladder shows indeed the cystic duct and artery to have been divided. The remainder of the abdomen was copiously irrigated with a liter of saline. All saline is removed. There is no bleeding or bile leakage from the liver bed or the clips sites. the 10 mm port site with an 0 Vicryl. All ports and instruments are removed. SPonge and needle counts are correct. Pneumoperitoneum is evacuated and the port sites are monitored to make sure there is no bleeding at the time of desufflation. ??Port sites are irrigated and the skin is closed with 4-0 Monocryl in a running subcuticular fashion. Skin glue sterile dressings are applied. The patient tolerated the procedure well without complications, transferred to the recovery room in stable condition. APURVA PANCHAL, Date of Procedure: 04/09/24
[2024-04-10] VITALS (13 sets, daily range): BP systolic 113–126; BP diastolic 78–82; PULSE 73; RESP 17; TEMP 36.3; O2SAT 88–96
[2024-04-10] MEDS: MORPHine 2 MG/ML SYR IVP ×3 (01:12→05:02)
[2024-04-10] MEDS: Nicotine 4 MG GUM CH ×2 (01:21→07:45)
[2024-04-10] MEDS: Acetaminophen 500 MG TAB 1000 MG PO ×2 (04:23→10:57)
[2024-04-10] MEDS: Polyethylene Glycol 3350 17 GM PACKET PO (07:42)
[2024-04-10] MEDS: Ketorolac 15 MG/ML VIAL IVP (07:42)
[2024-04-10] MEDS: HYDROcodone 5/Acetaminophen 325 TAB PO (07:44)
[2024-04-10] MEDS: Normal Saline Flush 10 ML SYR IVP ×2 (07:45)
--- NOTE | 2024-04-10 11:50 | PDOC.CMDIS ---
Date of service: 04/10/24 Time of Service: 11:51 LACE Index Scoring Tool Questions: Length of Stay (in days): 2 Was the patient admitted via the E.D.?: Yes E.D. Visits: 3 Answers: Total Score: 8 Risk of Readmission: Low Risk Care Management Discharge Plan Reason for Hospitalization: acute cholecystitis Discharge Plan: Ag returned home with no new services. He was transported home via private vehicle. He will follow up with surgical services and his discharge plan of care. Patient/Family Education Needs: Review discharge instructions and limitations, discussion of self care needs including ask me three. SDWA Health Related Social Needs: No Data to Display
--- NOTE | 2024-06-02 13:42 | NUR.NOTE ---
In chart for quality followup Nursing Note:
== END 2024-04-10 11:28 | disposition home or self-care (01) | DRG 419 ==
LOC: ER 15:52 → MS 16:16
PROVIDERS: Admitting Provider Surgery; Emergency Provider Emergency Medicine; PCP Nurse Practitioner; Visit Provider Surgery
PROC: 0FT44ZZ Resection of Gallbladder, Percutaneous Endoscopic Approach (ICD-10-PCS; CPT 47562; principal; 2024-04-09 13:00)
DX: K80.12 Calculus of gallbladder with acute and chronic cholecystitis without obstruction (principal); K82.8 Other specified diseases of gallbladder; K59.04 Chronic idiopathic constipation; F17.210 Nicotine dependence, cigarettes, uncomplicated; E66.811 Obesity, class 1; I10 Essential (primary) hypertension; K57.30 Diverticulosis of large intestine without perforation or abscess without bleeding; F32.A Depression, unspecified; Z68.34 Body mass index [BMI] 34.0-34.9, adult; Z86.0101 Personal history of adenomatous and serrated colon polyps
CPT/HCPCS: 47562; 76705; 80053; 80061; 83690; 83735; 85025; 88304; J1100; J1171; J1885; J1956; J2003; J2250; J2270; J2371; J2405; J2704; J3010; J3475